=== PATIENT | female | born 1955 | race Caucasian/White ===

== ENCOUNTER 2017-09-30 09:21 | Emergency (ER) | payer MEDICARE ==
--- NOTE | 2017-09-30 09:46 | UC ---
Shortness of Breath HPI - HPI Summary HPI Summary: Patient is to the urgent care this morning with driving complains of left-sided chest pain and shortness of breath began about 3 AM. Patient has noted a 3 pound weight gain over the past week. She has noted increased swelling in her legs and feet - History of Current Complaint Chief Complaint: UCChestPain Stated Complaint: SHORTNESS OF BREATH Time Seen by Provider: 09/30/17 09:28 Hx Obtained From: Patient ?: No Onset/Duration: Sudden Onset, Lasting Hours, Still Present Timing: Constant Current Severity: Moderate Dyspnea At: Rest Aggrevating Factors: Nothing Alleviating Factors: Nothing Associated Signs & Symptoms: Positive: Chest Pain Unrelated to Cough Related History: Obesity - Allergy/Home Medications Allergies/Adverse Reactions: Allergies Allergy/AdvReac Type Severity Reaction Status Date / Time bupropion [From Wellbutrin] Allergy Edema Verified 09/30/17 09:52 lidocaine Allergy Unknown Verified 09/30/17 09:52 Reaction Details Penicillins Allergy Swelling Verified 09/30/17 09:52 Of Face,Lips,& Throat shellfish derived Allergy Edema Verified 09/30/17 09:52 silver sulfadiazine Allergy Edema Verified 09/30/17 09:52 [From Silvadene] Sulfa (Sulfonamide Allergy Unknown Verified 09/30/17 09:52 Antibiotics) Reaction Details Home Medications: Home Medications Albuterol 0.5% CONC NEB.DARBY* [Albuterol 0.5ol*] 1 mg INH DAILY PRN 09/30/17 [ History Confirmed 09/30/17] Alpha Lipoic Acid [Alpha-Lipoic Acid] 200 mg PO QID 09/30/17 [History Confirmed 09/30/17] Clopidogrel TAB* [Plavix TAB*] 75 mg PO DAILY 09/30/17 [History Confirmed ] Nitrofurantoin Macrocrystals* [Macrodantin*] 100 mg PO DAILY PRN 09/30/17 [ History Confirmed 09/30/17] Pantoprazole TAB (NF) [Protonix TAB (NF)] 40 mg PO DAILY 09/30/17 [History Confirmed 09/30/17] Ropinirole TAB* [Requip TAB*] 1 mg PO DAILY 09/30/17 [History Confirmed 09/30/17 ] Spiriva Inhaler DEVICE* [Tiotropium Inhaler DEVICE*] 1 inh INH DAILY 09/30/17 [ History Confirmed 09/30/17] Warfarin TAB(*) [Coumadin TAB(*)] 5 mg PO EVERY OTHER DAY 09/30/17 [History Confirmed 09/30/17] amLODIPine TAB* [Norvasc 5 mg TAB*] 5 mg PO DAILY 09/30/17 [History Confirmed ] busPIRone TAB* [Buspar TAB *] 15 mg PO TID 09/30/17 [History Confirmed 09/30/17] hydrOXYzine HCL TAB* [Atarax 25 MG TAB*] 25 mg PO BEDTIME 09/30/17 [History Confirmed 09/30/17] PMH/Surg Hx/FS Hx/Imm Hx Previously Healthy: No Endocrine History: Diabetes, Dyslipidemia Cardiovascular History: Cardiac Disease GI/ History: Gastroesophageal Reflux - Surgical History Surgical History: Yes Surgery Procedure, Year, and Place: TRIPLE BYPASS, [id number], 3-C- SECTIONS, LEFT CARPAL TUNNEL-1999,. BLADDER SLING-2000, VULVA CANCER-2002, OOPHARECTOMY-2002, RECTAL CA-2009 W/RADIATION, AND CHEMO - Family History Known Family History: Positive: None - Social History Occupation: Disabled Lives: With Family Alcohol Use: None Substance Use Type: None Smoking Status (MU): Never Smoked Tobacco - Immunization History Most Recent Influenza Vaccination: 2012 Most Recent Tetanus Shot: UNKNOWN Most Recent Pneumonia Vaccination: 2013 Review of Systems Constitutional: Negative Skin: Negative Eyes: Negative ENT: Negative Respiratory: Shortness Of Breath Cardiovascular: Palpitations, Chest Pain Gastrointestinal: Negative Genitourinary: Negative Motor: Negative Neurovascular: Negative Musculoskeletal: Negative Neurological: Negative Psychological: Negative Is Patient Immunocompromised?: No All Other Systems Reviewed And Are Negative: Yes Physical Exam Triage Information Reviewed: Yes Appearance: Ill-Appearing, Pain Distress, Obese Vital Signs: Initial Vital Signs Temp 97.3 F 09/30/17 09:29 Pulse 114 09/30/17 09:29 Resp 26 09/30/17 09:29 BP 130/76 09/30/17 09:29 Pulse Ox 99 09/30/17 09:29 Vital Signs Reviewed: Yes Eye Exam: Normal Eyes: Positive: Conjunctiva Clear ENT Exam: Normal ENT: Positive: Normal ENT inspection, Hearing grossly normal, Pharynx normal, TMs normal, Uvula midline. Negative: Nasal congestion, Tonsillar swelling, Tonsillar exudate, Trismus, Muffled voice, Hoarse voice, Sinus tenderness Dental Exam: Normal Neck exam: Normal Neck: Positive: Supple, Nontender, No Lymphadenopathy Respiratory Exam: Other Respiratory: Positive: Respiratory distress, Decreased breath sounds, Accessory muscle use, Wheezing Cardiovascular Exam: Other Cardiovascular: Positive: No Murmur, Pulses Normal - O, Brisk Capillary Refill, Tachycardia Abdominal Exam: Normal Abdomen Description: Positive: Nontender, No Organomegaly Musculoskeletal Exam: Normal Musculoskeletal: Positive: Strength Intact, ROM Intact, No Edema Neurological Exam: Normal Neurological: Positive: Alert, Muscle Tone Normal Psychological Exam: Normal Psychological: Positive: Normal Response To Family Skin Exam: Normal Shortness of Breath Dx - Course Course Of Treatment: O2, IV, transfer to [facility] (patient preference) via EMS - Differential Dx/Diagnosis Provider Diagnoses: Chest pain shortness of breath - Physician Notification/Consults Discussed Patient Care With: Antolin James Time Discussed With Above Provider: 10:00 Instructed by Provider To: Transfer Discharge - Sign-Out/Discharge Documenting (check all that apply): Discharge - Discharge Plan Condition: Guarded Disposition: TRANS HIGHER LV OF CARE FAC Referrals: No Primary Care Phys,NOPCP [Medical Doctor] - - Billing Disposition and Condition Condition: GUARDED Disposition: [facility]
[2017-09-30 09:53] VITALS: BP 167/85
== END 2017-09-30 10:12 | disposition short-term general hospital (02) ==
LOC: UCCORT 09:21
DX: R07.9 Chest pain, unspecified (principal); R06.02 Shortness of breath; Z88.2 Allergy status to sulfonamides; Z88.0 Allergy status to penicillin; Z88.8 Allergy status to other drugs, medicaments and biological substances
CPT/HCPCS: 93005; 99213; G0463

== ENCOUNTER 2017-09-30 10:32 | Observation (INO) | payer MEDICARE ==
[2017-09-30] MEDS ORDERED: Nitroglycerin 2% OINT* 1 GM PAK TOPICAL ONE (10:34)
[2017-09-30 10:55] LABS: Urine Appearance Clear; Urine Blood 1+ (Negative); Urine Color Straw; Urine Ketones Negative (Negative); Urine Protein Negative (Negative); Urine Specific Gravity 1.002 (1.010-1.030); Urine Urobilinogen Negative (Negative)
[2017-09-30 11:00] LABS: ABS Basophils 0.1 10^3/ul (0-0.2); ABS Eosinophils 0.1 10^3/ul (0-0.6); ABS Lymphocytes 2.1 10^3/ul (1.0-4.8); ABS Monocytes 0.5 10^3/ul (0-0.8); ABS Neutrophils 4.8 10^3/ul (1.5-7.7); ABS Nucleated RBC 0 10^3/ul; Eosinophil % 1.9 % (0-6); Hematocrit 46 % (35-47); Hemoglobin 15.7 g/dl (12.0-16.0); Lymphocyte % 27.4 % (25-47); Mean Corpuscular HGB Conc 34 g/dl (31-36); Mean Corpuscular Hemoglobin 30 pg (27-31); Mean Corpuscular Volume 88 fL (80-97); Mean Platelet Volume 6.9 um3 (7.4-10.4); Nucleated Red Blood Cells % 0.1; Platelet Count 186 10^3/ul (150-450); Red Blood Count 5.15 10^6/ul (4.0-5.4); Red Cell Distribution Width 16 % (10.5-15); White Blood Count 7.6 10^3/ul (3.5-10.8)
--- NOTE | 2017-09-30 11:04 | RAD ---
INDICATION: Chest pressure COMPARISON: Most recent comparison chest x-ray is dated April 26, 2013 TECHNIQUE: Single AP portable view of the chest was obtained. FINDINGS: Image quality is compromised due to the relative inferiority of a portable chest x-ray. Postsurgical findings are unchanged from the prior chest x-ray. The heart and mediastinum exhibit normal size and contour. The lungs are grossly clear. There is no evidence of a large pleural effusion. Visualized bones are normal for the patient's age. IMPRESSION: No radiographic evidence for acute cardiopulmonary abnormality on this portable chest x-ray.
[2017-09-30 11:17] LABS: EGFR Non-African American 65.3 (>60)
[2017-09-30] MEDS ORDERED: Morphine INJ* 4 MG/ML 1 ML SYRINGE (NEW SYRINGE VERSION) IV ONE (11:36)
[2017-09-30] MEDS ORDERED: Iodixanol* (CONTRAST) 320 MG/ML 100 ML SDV IV ONE (11:44)
[2017-09-30] MEDS ORDERED: Morphine VIAL* 4 MG/ML VIAL (1 ml vial) IV ONE ×2 (11:50→11:54)
--- NOTE | 2017-09-30 12:32 | RAD ---
STUDY: CT angiography of the chest, abdomen and pelvis. INDICATION: Chest pressure and pain radiating to the back COMPARISON: CT chest abdomen pelvis dated January 20, 2011 TECHNIQUE: Multidetector CT angiography of the chest, abdomen and pelvis were obtained from the lung apices to the ischial tuberosities after the intravenous injection of 100 mL of Visipaque 320. Reformats were created in the coronal and sagittal planes. 3-D vascular imaging was created from the source images and reviewed as well. ANGIOGRAPHIC FINDINGS: There are no focal filling defects of the pulmonary arteries to indicate central or lobar pulmonary embolism. There is scattered atherosclerotic calcification at the arch of the aorta but no pathologic aneurysmal dilatation or dissection of the thoracic aorta. Calcified atherosclerosis becomes more severe at the abdominal aorta but there is no pathologic aneurysmal dilatation or dissection identified. There is coarse atherosclerotic calcification at the origins of the branch vessels of the arch of the aorta but the visualized portions of these arteries appear to fill adequately with contrast. There is atherosclerotic calcification at the origins of the celiac trunk and superior mesenteric artery causing a mild degree of stenosis at the origin of the celiac trunk. Calcified atherosclerosis at the renal artery ostia does not appear to cause any significant stenosis. The inferior mesenteric artery appears to be adequately patent. Coarse calcification in the lower abdominal aorta extends into the bilateral common iliac arteries there is likely high-grade stenosis at the distal left common iliac artery extending into the proximal portion of the left external iliac artery. There is potentially a second foci of high-grade stenosis as the left external iliac artery transition zone into the left common femoral artery. Shortly beyond the bifurcation the coarsely calcified left superficial femoral artery becomes occluded. On the right the right superficial femoral artery also appears to be, occluded shortly after the bifurcation. NON ANGIOGRAPHIC FINDINGS: Chest: The lungs exhibit mild centrilobular emphysematous changes but are otherwise adequately aerated. Top normal mediastinal lymph nodes measuring up to 8 mm in short axis diameter identified. The largest lymph node is a paratracheal lymph node medially anterior to the trachea above the bifurcation measuring 11 mm in short axis diameter (axial image 44 of 243). These lymph nodes have not changed significantly since the January 20, 2011 CT examination. The heart is grossly normal in appearance. Abdomen & Pelvis: The liver is homogenously hypodense relative to the spleen without focal masses, service irregularity or intrahepatic biliary duct dilatation. The liver measures up to 20.4 cm in greatest cephalocaudal dimension not significant change since the 2011 CT examination. The spleen, pancreas and adrenal glands are grossly normal in appearance. The gallbladder is normal. The kidneys are normal in appearance without focal mass, calcification or signs of hydronephrosis. The renal cortices enhance promptly and symmetrically on arterial phase imaging. Evaluation of the gastrointestinal tract is limited without oral contrast. The small and large bowel are not distended. The appendix is not discretely identified but there are no focal inflammatory changes in the right lower quadrant that would be characteristic of acute appendicitis. There is no gross retroperitoneal or mesenteric lymphadenopathy. The pelvic viscera is normal in appearance. Multilevel degenerative changes of the thoracic and lumbar spine include loss of intervertebral disc height.There are no sinister bone lesions. IMPRESSION: 1. No centrilobular pulmonary embolism. 2. Chronic appearing calcified atherosclerosis of the thoracic and abdominal aorta without acute dissection or pathologic aneurysmal dilatation. 3. There is at least high-grade stenosis involving the left common and external iliac arteries and occlusion of the proximal portions of the superficial femoral arteries bilaterally. Please correlate to signs or symptoms of lower extremity arterial deficiency including pulselessness and lower extremity claudication. 4. Mild hepatomegaly with likely hepatic steatosis. 5. Additional chronic and degenerative changes described in the body the report
[2017-09-30] MEDS ORDERED: Oxymorphone IR (NF) 5 MG TAB PO PRN (13:42)
[2017-09-30] MEDS ORDERED: Albuterol 0.5% CONC NEB.SOL* 5 MG/ML 20 ml BOT INH PRN (13:42)
[2017-09-30] MEDS ORDERED: Dextrose 50% Syringe 50 ML* 25 GM/50 ML SYRINGE IV PUSH PRN (13:48)
[2017-09-30] MEDS ORDERED: Spiriva Inhaler DEVICE* 1 EACH DEVICE SCH (14:00)
[2017-09-30] MEDS ORDERED: Morphine VIAL* 4 MG/ML VIAL (1 ml vial) IV PRN (14:48)
[2017-09-30] MEDS ORDERED: Albuterol 2.5 MG/3 ML NEB.SOL* (0.083%) INH PRN ×2 (15:46→18:17)
[2017-09-30] MEDS ORDERED: Albuterol 2.5 MG/3 ML NEB.SOL* (0.083%) ONE (15:54)
[2017-09-30] MEDS: busPIRone TAB* 5 MG PO SCH ×2 (16:38→21:53)
[2017-09-30] MEDS: Acetaminophen TAB* 325 MG PO PRN ×2 (16:38→23:28)
[2017-09-30] MEDS: Insulin LISPRO* 1 UNITS UNIT SUBCUT SCH (16:41)
[2017-09-30] MEDS ORDERED: Nitrofurantoin Macrocrystals* 100 MG CAP PO SCH (17:00)
[2017-09-30] MEDS ORDERED: Albuterol 2.5 MG/3 ML NEB.SOL* (0.083%) INH SCH (17:00)
[2017-09-30] MEDS: Nitrofurantoin Macrocrystals* 50 MG CAP PO SCH ×2 (17:55→21:52)
--- NOTE | 2017-09-30 17:56 | HP ---
CC: Dr. Sidhu * [facility] MEDICINE HISTORY AND PHYSICAL: DATE OF ADMISSION: 09/30/17 PRIMARY CARE PROVIDER: Dr. Sidhu. ATTENDING PHYSICIAN: Dr. Destiny Hope * (dictation provided by Mimi Cornejo NP ). CHIEF COMPLAINT: Chest pain. HISTORY OF PRESENT ILLNESS: Ms. 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 West at [facility]; rectal cancer, status post chemotherapy and radiation, and previously followed by Dr. Banegas; history of DVT, on warfarin therapy; diabetes, who presents to the hospital today with concern for chest pain. Ms. Wilkerson states that she started feeling unwell on Sunday morning. At that time, she had headache, runny nose, and general malaise with a low-grade fever consistent with an upper respiratory tract infection. She continued to feel generally unwell, but just only mildly sick on , Sunday, and Sunday. However, this morning at 3 a.m., she woke suddenly with excruciating chest pain. She describes feeling like "an elephant was sitting on my chest." She feels that her "head was about to pop off." She had pain radiating into her back. She was nauseous, sweaty, and diaphoretic. She stated it was hard to walk. For this, she originally went to [facility], but then was transferred to [facility] via ambulance. At this point, she states she has a very mild headache and no chest pain. In the emergency room, Ms. Wilkerson had labs, which showed troponin of 0.03. The remainder of her labs showed INR 3.0. She had incidentally noted lactic acid of 2.1. Her urine shows 1+ leukocyte esterase. She does have frequent history of UTIs and is currently reporting urinary frequency, but no dysuria. She had a chest x-ray, which showed no acute process and a chest, abdomen, and pelvis CTA, which showed "no centrilobular pulmonary embolism, chronic- appearing calcified atherosclerosis of thoracic and abdominal aorta without acute dissection or pathologic aneurysmal dilatation. There is at least high- grade stenosis involving the left common and external iliac arteries and occlusion of the proximal portions of the superficial femoral arteries bilaterally. Please correlate the signs and symptoms of lower extremity arterial deficiency including pulselessness and lower extremity claudication, mild hepatomegaly with likely hepatic steatosis, additional chronic and degenerative changes as described in the body of report." In terms of the lower extremity femoral artery stenosis etc., I will note that this is consistent with previous study from 01/05/16 when the patient had aorta with runoff CTA and then she was followed by Vascular Surgery in [place]. PAST MEDICAL HISTORY: 1. Coronary artery bypass graft x3 in 2003, followed by [employer] construction supervisor covering for Dr. Alba, who has left the practice in [place]. 2. Chronic pain secondary to shoulder injury, on oxymorphone. 3. 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 4. Rectal cancer, status post chemo and radiation in 2009, followed previously by Dr. Banegas. 5. Hypertension. 6. Hyperlipidemia. 7. Asthma and COPD, followed by Dr. West in [place]. 8. Restless legs syndrome. 9. History of DVT, on warfarin. 10. Type 2 diabetes, [id number], blood glucose running about 200 at home. 11. MADHAV on home CPAP with 2L NC at night. MEDICATIONS: 1. Warfarin 4 mg alternating with 5 mg every other day. 2. Diphenhydramine 25 mg p.o. at bedtime. 3. Meloxicam 7.5 mg p.o. daily. 4. Multivitamin with mineral 1 tab p.o. daily. 5. Cyanocobalamin 1000 mcg p.o. daily. 6. Oxymorphone 5 mg p.o. q.8 hours p.r.n. 7. Cilostazol 100 mg p.o. b.i.d. 8. Zfake-[id number]-lrwz 200 mg p.o. four times a day. 9. Atarax 25 mg p.o. at bedtime. 10. BuSpar 15 mg p.o. t.i.d. 11. Amlodipine 5 mg p.o. daily. 12. Spiriva 1 cap inhaled daily. 13. Simvastatin 5 mg p.o. daily. 14. Ropinirole 1 mg p.o. daily. 15. Pantoprazole 40 mg p.o. daily. 16. Nitrofurantoin 100 mg p.o. as needed for urinary tract infection symptoms. 17. Glipizide with metformin 2.5/250 one tab p.o. daily. 18. Plavix 75 mg p.o. daily. 19. Albuterol via nebulizer 1 inhalation as needed. The patient states she used twice a day at this point. ALLERGIES: BUPROPION, LIDOCAINE, PENICILLIN, SHELLFISH, SILVER SULFADIAZINE, and SULFA. FAMILY HISTORY: The patient reports her mother related to heart attack. Dad is alive, but he has dementia and Parkinson's, is currently on hospice. SOCIAL HISTORY: The patient quit smoking in 2002. She denies alcohol or drug use. She lives with her who is the healthcare proxy. REVIEW OF SYSTEMS: A 14-point review of systems was completed with Ms. Wilkerson and all those not mentioned above were negative. PHYSICAL EXAMINATION GENERAL: Ms. Wilkerson is sitting up on the bed. She is in no acute distress. VITAL SIGNS: Temperature 98.7, pulse rate 83, respiratory rate 14, O2 saturation 93% on room air, and blood pressure 132/61. LUNGS: Clear to auscultation bilaterally with no accessory muscle use and good aeration. HEART: S1 and S2. No murmur, rub, or gallop, and regular. ABDOMEN: Soft and nontender with bowel sounds positive x4. EXTREMITIES: No cyanosis or edema. NEURO: She is alert. She is oriented x3. She moves all extremities equally. There is no facial asymmetry or focal weakness. Extraocular movements are intact. SKIN: Intact. DIAGNOSTIC STUDIES/LAB DATA: WBC 7.6, hemoglobin 15.7, hematocrit 46, and platelet count 186. INR 3.00. Sodium 144, potassium 4.4, chloride 107, serum bicarbonate 28, BUN 10, creatinine 0.88, glucose 118, lactic acid 2.1, magnesium 1.8. Troponin 0.03. BNP 235. Urine shows 1+ leuk esterase, but no bacteria. The chest x-ray and chest, abdomen, and pelvis CTA as read above. Her EKG shows right bundle branch block, heart rate about 110, it is regular, although I am not clearly able to identify P waves. ASSESSMENT AND PLAN: Ms. Wilkerson is a 62-year-old female with a past medical history of coronary artery disease, with coronary artery bypass graft; type 2 diabetes; peripheral vascular disease, who presents today to the hospital with concern for chest pain. Our plans are for observation in the hospital for the followin. Chest pain: The patient has multiple risk factors for coronary artery disease and acute coronary syndrome. Our plan is for repeat troponins x2. She will be monitored on the telemetry unit, she will have EKG with any further chest pain, she will go on for a chemical nuclear medicine stress test tomorrow. If there are any abnormalities there or concerning clinical course, Cardiology will be consulted. 2. Type 2 diabetes: The patient states her blood glucose is uncontrolled at home. Plan to hold her glipizide and metformin and treat with insulin with meals via sliding scale. I have also added on hemoglobin A1c and recommend that her outpatient oral medications be adjusted as needed at the time of discharge. 3. Hypertension: Blood pressure well controlled. Continue amlodipine. The patient is not on beta blockade or lisinopril. She may benefit from this at the time of discharge given her history of coronary artery disease with myocardial infarction. 4. Depression: Continue BuSpar. 5. Chronic obstructive pulmonary disease, asthma: Continue albuterol nebulizer and Spiriva. 6. History of peripheral vascular disease: Continue Pletal, Plavix, Requip for associated restless legs. 7. History of deep venous thrombosis: Continue warfarin. 8. Hyperlipidemia: Continue simvastatin. 9. Chronic pain: Continue Opana. 10. DVT prophylaxis: With warfarin. 11. Code status is DNR. ADDENDUM: Patient reports that her right arm has seemed swollen today. She also has non-blanching petechiae about the hand and wrist. The arm is painless with strong pulses. She did have a CTA chest/abd/pelvis so subclavian artery occlusion was ruled out already. I initially question whether she has a mild injury to the arm during EMS transport to the hospital with petechiae related to being fully anticoagulated on warfarin, but this seems less likely as she has no pain. Plan to add on ESR, CRP, REED to begin to workup vasculitis. TIME SPENT: Approximately 60 minutes was spent on the admission of this patient , more than half time spent with the patient at the bedside reviewing the events leading up to this hospitalization, performing the physical examination, and reviewing the plan of care. MIMI JAMES, ICT HELP DESK OFFICER [id number]/[facility] #: [id number] NALLELY
[2017-09-30] MEDS ORDERED: hydrOXYzine HCL TAB* 25 MG PO SCH (21:00)
[2017-09-30] MEDS ORDERED: diPHENhydraMINE PO* 25 MG PO SCH (21:00)
[2017-09-30] MEDS: Cilostazol TAB* 100 MG PO SCH (21:52)
[2017-10-01] MEDS: Insulin LISPRO* 1 UNITS UNIT SUBCUT SCH ×2 (07:29→13:03)
[2017-10-01] MEDS ORDERED: Cyanocobalamin TAB* 500 MCG PO SCH (09:00)
[2017-10-01] MEDS ORDERED: Tiotropium CAP.INH* CAP.INH/18 MCG (USE ORDER SET !) INH SCH (09:00)
[2017-10-01] MEDS ORDERED: Clopidogrel TAB* 75 MG PO SCH (09:00)
[2017-10-01] MEDS ORDERED: Spiriva Inhaler DEVICE* 1 EACH DEVICE INH ONE (09:00)
[2017-10-01] MEDS ORDERED: Warfarin TAB(*) 4 MG PO SCH (09:00)
[2017-10-01] MEDS ORDERED: Multivitamins/Minerals TAB PO SCH (09:00)
[2017-10-01] MEDS ORDERED: CMC Pantoprazole TAB (NF) 40 MG TAB PO SCH (09:00)
[2017-10-01] MEDS ORDERED: amLODIPine TAB* 5 MG PO SCH (09:00)
[2017-10-01] MEDS ORDERED: Ropinirole TAB* 0.5 MG TAB PO SCH (09:00)
[2017-10-01] MEDS ORDERED: CMCS Simvastatin TAB(NF) 10 MG TAB PO SCH (09:00)
[2017-10-01] MEDS: busPIRone TAB* 5 MG PO SCH ×2 (09:10→14:11)
[2017-10-01] MEDS: Nitrofurantoin Macrocrystals* 50 MG CAP PO SCH ×2 (09:11→14:11)
[2017-10-01] MEDS: Cilostazol TAB* 100 MG PO SCH (09:11)
[2017-10-01 09:52] LABS: INR 2.9 (0.77-1.02)
[2017-10-01] MEDS ORDERED: Regadenoson* 0.4 MG/5 ML SYRINGE ONE (12:46)
--- NOTE | 2017-10-01 13:14 | RAD ---
HISTORY: Chest pain, Conus of breath, hyperlipidemia, hypertension, previous [place], cardiac catheterization, diabetes, COMPARISONS: None TECHNIQUE: A 1 day stress/rest myocardial perfusion study was performed, with pharmacologic stress. The stress portion was monitored by Dr. Mathews. Gated SPECT imaging was performed, with CT-based attenuation correction DOSE: Stress: Technetium 99m tetrofosmin, 25.7 millicuries, injected at 12:04 PM on October 01, 2017 Rest: Technetium 99m tetrofosmin, 10.51 millicuries, injected at 9:48 AM on October 01, 2017 Pharmacologic agent: Lexiscan FINDINGS: CARDIAC MONITORING: Nondiagnostic EKG study due to resting EKG abnormalities. EF: 36% TID: 1.2 MOTION: There is diffuse hypokinesia PERFUSION: There is a small fixed apical defect. There is a moderate to large fixed defect of the anterior wall and septum, with marginal reversibility. OTHER: None IMPRESSION: 1. DECREASED EJECTION FRACTION. 2. THERE IS A FIXED DEFECT OF THE ANTERIOR WALL AND SEPTUM CONSISTENT WITH PREVIOUS INFARCT. THERE IS MARGINAL REVERSIBILITY WHICH MAY REFLECT MARGINAL ISCHEMIA. THERE IS ALSO SMALL FIXED DEFECT OF THE APEX. ASSESSMENT: INTERMEDIATE RISK. Based on imaging criteria from ACC/AHA 2002. Guideline Update for the Management of Patient's with Chronic Stable Angina, table 23. Noninvasive Risk Stratification. CPT II Codes: 0581B1Y
[2017-10-01 15:27] VITALS: BP 113/57
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
[2017-10-02] MEDS ORDERED: Warfarin TAB(*) 5 MG PO SCH (09:00)
--- NOTE | 2017-10-11 14:21 | ED ---
Inessa López Emily, scribed for William Levi MD on 09/30/17 at 1055 . HPI Chest Pain - HPI Summary HPI Summary: This patient is a 62 year old F BIBA to [facility], referred by urgent care, accompanied by with a chief complaint of chest pressure that woke the pt up at 0300 this morning. The patient rates the pain 3/10 in severity. Pt reports the pain being a 9/10 at its worst. Symptoms aggravated by nothing. Symptoms alleviated by nothing. Patient reports weakness in the legs, dizziness , sore throat, back pain (began 3 days ago), SOB (resolved), nausea, recent weight gain (3 lbs), and increased urinary frequency. Patient denies cough, arm pain, and jaw pain. Pt reports having a triple bypass surgery for a OH in 2003. - History of Current Complaint Chief Complaint: EDChestPainROMI Hx Obtained From: Patient Onset/Duration: Started Hours Ago, Still Present Time of Onset: 03:00 Timing: Constant Initial Severity: Moderate Current Severity: Moderate Pain Intensity: 3 - At its worst 9/10 Pain Scale Used: 0-10 Numeric Chest Pain Location: Diffuse Chest Pain Radiates: No Character: Pressure/Squeezing - Allergy/Home Medications Allergies/Adverse Reactions: Allergies Allergy/AdvReac Type Severity Reaction Status Date / Time bupropion [From Wellbutrin] Allergy Edema Verified 09/30/17 09:52 lidocaine Allergy Unknown Verified 09/30/17 09:52 Reaction Details Penicillins Allergy Swelling Verified 09/30/17 09:52 Of Face,Lips,& Throat shellfish derived Allergy Edema Verified 09/30/17 09:52 silver sulfadiazine Allergy Edema Verified 09/30/17 09:52 [From Silvadene] Sulfa (Sulfonamide Allergy Unknown Verified 09/30/17 09:52 Antibiotics) Reaction Details Home Medications: Home Medications Cilostazol TAB* [Pletal TAB*] 100 mg PO BID 09/30/17 [History Confirmed 09/30/17 ] Cyanocobalamin TAB* [Vitamin B12 TAB*] 1,000 mcg PO DAILY 09/30/17 [History Confirmed 09/30/17] Glipizide/Metformin HCl [Glipizide/Metformin HCl 2.5-250 mg] 1 tab PO DAILY [History Confirmed 09/30/17] Meloxicam(NF) [Mobic(NF)] 7.5 mg PO DAILY 09/30/17 [History Confirmed 09/30/17] Multivitamins/Minerals TAB* [Theragran/minerals TAB*] 1 tab PO DAILY 09/30/17 [ History Confirmed 09/30/17] Oxymorphone (NF) [Opana (NF)] 5 mg PO Q8H PRN 09/30/17 [History Confirmed ] Simvastatin TAB(NF) [Zocor(NF)] 5 mg PO DAILY 09/30/17 [History Confirmed ] Warfarin TAB(*) [Coumadin TAB(*)] 4 mg PO EVERY OTHER DAY 09/30/17 [History Confirmed 09/30/17] diPHENhydraMINE PO* [Benadryl PO 25 MG TAB*] 25 mg PO BEDTIME 09/30/17 [History Confirmed 09/30/17] PMH/Surg Hx/FS Hx/Imm Hx Previously Healthy: No Endocrine/Hematology History: Reports: Hx Diabetes Cardiovascular History: Reports: Hx Hypertension - CONTROLLED W/MEDS Comment Only: Hx Congestive Heart Failure - OH + TRIPLE [id number], Other Cardiovascular Problems/Disorders - TRIPLE BYPASS 2003 Respiratory History: Reports: Hx Asthma, Hx Chronic Obstructive Pulmonary Disease (COPD), Hx Sleep Apnea - CPAP AT NIGHT History: Denies: Hx Renal Disease Musculoskeletal History: Reports: Other Musculoskeletal History - left shoulder injury Sensory History: Reports: Hx Contacts or Glasses Opthamlomology History: Reports: Hx Contacts or Glasses Psychiatric History: Reports: Hx Anxiety - Cancer History Cancer Type, Location and Year: VULVA -2002, RECTAL CA-2009 Hx Chemotherapy: Yes - RECTAL CA Hx Radiation Therapy: Yes - RECTAL CANCER, 2010 - Surgical History Surgery Procedure, Year, and Place: TRIPLE BYPASS, [id number], 3-C- SECTIONS, LEFT CARPAL TUNNEL-1999,. BLADDER SLING-2000, VULVA CANCER-2002, OOPHARECTOMY-2002, RECTAL CA-2009 W/RADIATION, AND CHEMO Infectious Disease History: No Infectious Disease History: Denies: Traveled Outside the [place] in Last 30 Days - Family History Known Family History: Positive: Other - Positive asthma. Negative angioedema and aneurysm - Social History Occupation: Disabled Lives: With Family Alcohol Use: None Substance Use Type: Reports: None Smoking Status (MU): Never Smoked Tobacco Review of Systems Negative: Fever, Chills Negative: Erythema Positive: Sore Throat Positive: Chest Pain Positive: Shortness Of Breath. Negative: Cough Positive: Nausea, Other - Positive recent weight gain. Negative: Abdominal Pain , Vomiting Positive: frequency. Negative: dysuria, hematuria Positive: Other - Positive back pain. Negative arm pain and jaw pain. Negative : Myalgia, Edema Negative: Rash Neurological: Other - Positive dizziness Positive: Weakness All Other Systems Reviewed And Are Negative: Yes Physical Exam - Summary Physical Exam Summary: Constitutional: Well-developed, Well-nourished, Alert. (-) Distressed Skin: Warm, Dry HENT: Normocephalic; Atraumatic Eyes: Conjunctiva normal Neck: Musculoskeletal ROM normal neck. (-) JVD, (-) Stridor, (-) Tracheal deviation Cardio: Rhythm regular, rate normal, Heart sounds normal; Intact distal pulses; The pedal pulses are 2+ and symmetric. Radial pulses are 2+ and symmetric. (-) Murmur. No reproducible CP Pulmonary/Chest wall: Effort normal. (-) Respiratory distress, (-) Wheezes, (-) Rales, Diminished breath sounds Abd: Soft, (-) Tenderness, (-) Distension, (-) Guarding, (-) Rebound Musculoskeletal: (-) Edema Lymph: (-) Cervical adenopathy Neuro: Alert, Oriented x3 Psych: Mood and affect Normal Triage Information Reviewed: Yes Vital Signs On Initial Exam: Initial Vitals Temp Pulse Resp BP Pulse Ox 98.7 F 117 24 140/88 90 09/30/17 10:40 09/30/17 10:40 09/30/17 10:40 09/30/17 10:40 09/30/17 10:40 Vital Signs Reviewed: Yes Diagnostics - Vital Signs Vital Signs Temp Pulse Resp BP Pulse Ox 09/30/17 10:40 98.7 F 117 24 140/88 90 - Laboratory Result Diagrams: 09/30/17 10:50 09/30/17 10:50 Lab Statement: Any lab studies that have been ordered have been reviewed, and results considered in the medical decision making process. - Radiology CXR Radiology Interpretation Completed By: Radiologist - CXR reveals, per radiologist, no radiographic evidence for acute cardiopulmonary abnormality on this portable chest x-ray. ED physician has reviewed this radiology report. - CT Chest CT CT Interpretation Completed By: Radiologist - Chest CT reveals, per radiologist , 1. No centrilobular pulmonary embolism. 2. Chronic appearing calcified atherosclerosis of the thoracic and abdominal aorta without acute dissection or pathologic aneurysmal dilatation. 3. There is at least high-grade stenosis involving the left common and external iliac arteries and occlusion of the proximal portions of the superficial femoral arteries bilaterally. Please correlate to signs or symptoms of lower extremity arterial deficiency including pulselessness and lower extremity claudication. 4. Mild hepatomegaly with likely hepatic steatosis. 5. Additional chronic and degenerative changes described in the body the report. ED physician has reviewed this radiology report. - EKG 1044 Cardiac Rate: Tachycardia EKG Rhythm: Sinus Rhythm - 110 BPM EKG Interpretation: PVCs and no STEMI Re-Evaluation - Re-Evaluation First Eval Re-Evaluation Time: 11:20 Change: Improved Comment: Pt reports CP feeling slightly improved Second Eval Re-Evaluation Time: 12:35 Change: Unchanged Comment: Discussed results and plan of care with pt. Her pedal pulses are weakly palpable on dorsalis pedis Chest Pain Course/Dx - Course Course Of Treatment: Telemetry shows sinus rhythm with occasional PVCs. CP much improved with nitrates and morphine. No significant EKG changes. Admit for repeat troponins, probably stress test and/or cardiac consult. - Diagnoses Provider Diagnoses: Chest pain, unspecified - Provider Notifications Discussed Care Of Patient With: Destiny Hope Time Discussed With Above Provider: 12:13 Instructed by Provider To: Other - Consult with Dr. Hope (hospitalist) at 1213. She agrees to admit pt for further evaluation. - Critical Care Time Critical Care Time: 30-74 min - 35 Minutes Discharge - Sign-Out/Discharge Documenting (check all that apply): Discharge - Admit to [facility] - Discharge Plan Condition: Stable Disposition: ADMITTED TO [facility] Referrals: Kim Sidhu MD [Primary Care Provider] - The documentation as recorded by the Inessa morales Emily accurately reflects the service I personally performed and the decisions made by me, William Levi MD.
== END 2017-10-01 15:50 | disposition home or self-care (01) ==
LOC: ED 10:32 → MEDTELE 13:15
PROVIDERS: ADMIT Internal Medicine; ATTEND Internal Medicine
DX: R07.9 Chest pain, unspecified (principal); I25.10 Atherosclerotic heart disease of native coronary artery without angina pectoris; I10 Essential (primary) hypertension; E78.5 Hyperlipidemia, unspecified; J44.9 Chronic obstructive pulmonary disease, unspecified; G25.81 Restless legs syndrome; Z86.718 Personal history of other venous thrombosis and embolism; Z79.01 Long term (current) use of anticoagulants; E11.9 Type 2 diabetes mellitus without complications; G47.33 Obstructive sleep apnea (adult) (pediatric); G89.29 Other chronic pain; Z79.899 Other long term (current) drug therapy; Z88.8 Allergy status to other drugs, medicaments and biological substances; Z95.1 Presence of aortocoronary bypass graft; Z87.891 Personal history of nicotine dependence; I45.2 Bifascicular block; I49.3 Ventricular premature depolarization; R06.02 Shortness of breath; Z88.2 Allergy status to sulfonamides; Z88.0 Allergy status to penicillin
CPT/HCPCS: 36415; 71045; 71275; 74174; 78452; 80053; 81003; 81015; 82550; 82553; 83036; 83605; 83735; 83874; 83880; 84484; 85025; 85610; 85652; 85730; 86038; 86140; 86255; 87086; 93005; 93017; 94640; 94660; 94760; 96374; 96376; 99291; A9270-GY; A9502; G0378; J2270; J2785; Q9967

== ENCOUNTER 2018-06-13 13:31 | Inpatient (IN) | payer MEDICARE ==
--- NOTE | 2018-06-13 14:09 | ED ---
HPI Chest Pain - HPI Summary HPI Summary: A 63 y/o female presents to [facility] with a chief complaint of left sided chest pain since 06/12/18, worsening on 06/13/18. The patient describes her pain as a pressure. She also reports nausea, low heart rate and SOB. She rates her pain as 6/10. She has Zoll life vest with an external defibrillator. She has had 2 cardiac stents in November. 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 She has a Hx of triple bypass. She took NTG the morning of 06/13/18. Has a Hx of blood clots next to her heart. She takes coumadin. Last time she had her blood levels tested was . She denies a Hx of CHF, but admits to a Hx of DC. She has been admitted to the ED before for Chemotherapy for rectal cancer in 2009. 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 - History of Current Complaint Chief Complaint: EDChestPainROMI Time Seen by Provider: 06/13/18 13:52 Hx Obtained From: Patient Onset/Duration: Started Hours Ago, Still Present Timing: Constant, Lasting Hours Initial Severity: Moderate Current Severity: Moderate Pain Intensity: 6 Pain Scale Used: 0-10 Numeric Chest Pain Location: Diffuse Chest Pain Radiates: No Character: Pressure/Squeezing Aggravating Factor(s): Nothing Alleviating Factor(s): Medication Associated Signs and Symptoms: Positive: Shortness of Breath, Nausea, Other: - feeling bradycardic - Allergy/Home Medications Allergies/Adverse Reactions: Allergies Allergy/AdvReac Type Severity Reaction Status Date / Time bupropion [From Wellbutrin] Allergy Edema Verified 09/30/17 09:52 lidocaine Allergy Unknown Verified 09/30/17 09:52 Reaction Details Penicillins Allergy Swelling Verified 09/30/17 09:52 Of Face,Lips,& Throat shellfish derived Allergy Edema Verified 09/30/17 09:52 silver sulfadiazine Allergy Edema Verified 09/30/17 09:52 [From Silvadene] Sulfa (Sulfonamide Allergy Unknown Verified 09/30/17 09:52 Antibiotics) Reaction Details PMH/Surg Hx/FS Hx/Imm Hx Endocrine/Hematology History: Reports: Hx Diabetes Cardiovascular History: Reports: Hx Angina, Hx Coronary Artery Disease, Hx Deep Vein Thrombosis, Hx Hypercholesterolemia, Hx Hypertension - CONTROLLED W/MEDS, Hx Myocardial Infarction Comment Only: Hx Congestive Heart Failure - DC + TRIPLE [id number], Other Cardiovascular Problems/Disorders - TRIPLE BYPASS 2003 Respiratory History: Reports: Hx Asthma, Hx Chronic Obstructive Pulmonary Disease (COPD), Hx Sleep Apnea - CPAP AT NIGHT History: Denies: Hx Renal Disease Musculoskeletal History: Reports: Other Musculoskeletal History - left shoulder injury Sensory History: Reports: Hx Contacts or Glasses Denies: Hx Hearing Aid Opthamlomology History: Reports: Hx Contacts or Glasses Neurological History: Denies: Hx Migraine, Hx Seizures, Hx Transient Ischemic Attacks (TIA) Psychiatric History: Reports: Hx Anxiety - Cancer History Cancer Type, Location and Year: VULVA -2002, RECTAL CA-2009 Hx Chemotherapy: Yes - RECTAL CA Hx Radiation Therapy: Yes - RECTAL CANCER, 2010 - Surgical History Surgery Procedure, Year, and Place: TRIPLE BYPASS, [id number], 3-C- SECTIONS, LEFT CARPAL TUNNEL-1999,. BLADDER SLING-2000, VULVA CANCER-2002, OOPHARECTOMY-2002, RECTAL CA-2009 W/RADIATION, AND CHEMO Infectious Disease History: No Infectious Disease History: Denies: Traveled Outside the [place] in Last 30 Days - Family History Known Family History: Positive: Other - Positive asthma. Negative angioedema and aneurysm - Social History Alcohol Use: None Substance Use Type: Reports: None Smoking Status (MU): Never Smoked Tobacco Review of Systems Negative: Fever Positive: Chest Pain, Other - positive: feeling bradycardic Positive: Shortness Of Breath Positive: Nausea All Other Systems Reviewed And Are Negative: Yes Physical Exam - Summary Physical Exam Summary: GENERAL: Patient is a well-developed and nourished F who is lying comfortable in the stretcher. Patient is not in any acute respiratory distress. HEAD AND FACE: Normocephalic EYES: PERRLA, EOMI x 2. EARS: Hearing grossly intact. MOUTH: Oropharynx within normal limits. NECK: Supple, trachea is midline, no adenopathy, no JVD, no carotid bruit. CHEST: Symmetric, mild TTP diffusely. LUNGS: Clear to auscultation bilaterally. No wheezing or crackles. CVS: Regular rate and rhythm, S1 and S2 present, no murmurs or gallops appreciated. ABDOMEN: Soft, non-tender. Bowel sounds are normal. No abdominal abnormal pulsations. EXTREMITIES: Full ROM in all major joints, no edema no cyanosis or clubbing. NEURO: Alert and oriented x 3. No acute neurological deficits. Speech is normal and follows commands. SKIN: Dry and warm Triage Information Reviewed: Yes Vital Signs On Initial Exam: Initial Vitals Temp Pulse Resp BP Pulse Ox 97.8 F 81 16 130/58 96 06/13/18 13:36 06/13/18 13:36 06/13/18 13:36 06/13/18 13:36 06/13/18 13:36 Vital Signs Reviewed: Yes Diagnostics - Vital Signs Vital Signs Temp Pulse Resp BP Pulse Ox 06/13/18 13:36 97.8 F 81 16 130/58 96 - Laboratory Result Diagrams: 06/14/18 09:18 06/14/18 09:18 Lab Statement: Any lab studies that have been ordered have been reviewed, and results considered in the medical decision making process. - Radiology CXR Radiology Interpretation Completed By: Radiologist Summary of Radiographic Findings: Stigmata of obstructive lung disease. No acute cardiomegaly. No acute pulmonary or cardiac process evident. ED physician has reviewed this imaging report. - EKG 13:53 Cardiac Rate: NL - 85 bpm EKG Rhythm: Sinus Rhythm - NSR at 85 bpm with PVCs and RBBB. Similar to previous EKG done . Summary of EKG Findings: NSR at 85 bpm with PVCs and RBBB. Similar to previous EKG done . Chest Pain Course/Dx - Course Course Of Treatment: A 63 y/o female presents to [facility] with a chief complaint of left sided chest pain since 06/12/18, worsening on 06/13/18. Workup is remarkable with the physical exam revealing mild TTP diffusely in chest. EKG showed NSR at 85 bpm with PVCs and RBBB. Similar to previous EKG done . CXR impression: Stigmata of obstructive lung disease. No acute cardiomegaly. No acute pulmonary or cardiac process evident. Lab results obtained. INR high at 2.58, APTT high 39.3 Troponin at 0.03. In the ED course the patient was given aspirin PO and NTG. Dx: chest pain.The patient will be admitted. Case discussed with Dr. Palma, hospitalist. I discussed results with patient. The patient agrees with this plan. - Diagnoses Provider Diagnoses: Chest pain - Provider Notifications Discussed Care Of Patient With: Royce Roman Time Discussed With Above Provider: 14:40 Instructed by Provider To: Other - Discussed case with patient and is agreeable with plan for admission. Discharge - Sign-Out/Discharge Documenting (check all that apply): Patient Departure - Admit - Discharge Plan Condition: Guarded Disposition: ADMITTED TO [facility] - Billing Disposition and Condition Condition: GUARDED Disposition: Admitted to [facility] - Attestation Statements Document Initiated by Scribe: Yes Documenting Scribe: Ruben Shaikh Provider For Whom Avi is Documenting (Include Credential): Ellis Garvey MD Scribe Attestation: IRuben, scribed for Ellis Garvey MD on 06/16/18 at 1050. Scribe Documentation Reviewed: Yes Provider Attestation: The documentation as recorded by the [email or web address] cosme accurately reflects the service I personally performed and the decisions made by me, Maggy Garvey MD Status of Scribe Document: Viewed Consult Consult: At 15:30- Dr. Palma, hospitalist, accepted the patient for admission.
[2018-06-13 14:23] LABS: ABS Basophils 0 10^3/ul (0-0.2); ABS Eosinophils 0.2 10^3/ul (0-0.6); ABS Lymphocytes 2.1 10^3/ul (1.0-4.8); ABS Monocytes 0.6 10^3/ul (0-0.8); ABS Neutrophils 4.9 10^3/ul (1.5-7.7); ABS Nucleated RBC 0 10^3/ul; Eosinophil % 2.3 %; Hematocrit 42 % (35-47); Hemoglobin 14.6 g/dl (12.0-16.0); Lymphocyte % 26.6 %; Mean Corpuscular HGB Conc 35 g/dl (31-36); Mean Corpuscular Hemoglobin 31 pg (27-31); Mean Corpuscular Volume 88 fL (80-97); Mean Platelet Volume 7.5 fL (7.4-10.4); Nucleated Red Blood Cells % 0.1; Platelet Count 183 10^3/ul (150-450); Red Blood Count 4.77 10^6/ul (4.00-5.40); Red Cell Distribution Width 16 % (10.5-15); White Blood Count 7.7 10^3/ul (3.5-10.8)
[2018-06-13] MEDS ORDERED: Nitroglycerin TAB 0.4 MG* 0.4 MG TAB SL ONE (14:24)
[2018-06-13] MEDS ORDERED: Aspirin 81 mg CHEW TAB* 81 MG TAB.CHEW PO ONE (14:25)
[2018-06-13 14:29] LABS: Activated Partial Thrombo Time 39.3 seconds (26.0-36.3); INR 2.58 (0.77-1.02)
[2018-06-13 14:48] LABS: Albumin 4.9 g/dL (3.2-5.2); Albumin/Globulin Ratio 1.9 (1-3); BUN/Creatinine Ratio 15.1 (8-20); Calcium 9.8 mg/dL (8.6-10.3); EGFR Non-African American 61.1 (>60); Globulin 2.6 g/dL (2-4); Potassium 3.7 mmol/L (3.5-5.0); Total Bilirubin 0.9 mg/dL (0.2-1.0); Total Protein 7.5 g/dL (6.4-8.9)
[2018-06-13 14:51] LABS: HCG Pregnancy 4.88 mIU/mL
[2018-06-13 15:10] LABS: Urine Appearance Clear; Urine Bacteria Absent (Absent); Urine Bilirubin Negative (Negative); Urine Blood Negative (Negative); Urine Color Straw; Urine Glucose Negative (Negative); Urine Ketones Negative (Negative); Urine Nitrite Negative (Negative); Urine Protein Negative (Negative); Urine Red Blood Cell Absent (Absent); Urine Specific Gravity 1.003 (1.010-1.030); Urine Urobilinogen Negative (Negative); Urine White Blood Cell Trace(0-5/hpf) (Absent)
[2018-06-13] MEDS ORDERED: Acetaminophen TAB* 325 MG PO PRN (15:48)
[2018-06-13] MEDS ORDERED: Iodixanol* (CONTRAST) 320 MG/ML 100 ML SDV IV ONE (15:58)
[2018-06-13] MEDS: KCL 20 MEQ/100 ML IVPREMIX* 20 MEQ/100 ML BAG IV SCH ×2 (16:33→22:36)
[2018-06-13] MEDS ORDERED: Oxymorphone IR (NF) 5 MG TAB PO PRN (16:40)
[2018-06-13] MEDS ORDERED: Albuterol 2.5 MG/3 ML NEB.SOL* (0.083%) INH PRN (16:40)
[2018-06-13] MEDS ORDERED: Dextrose 50% Syringe 50 ML* 25 GM/50 ML SYRINGE IV PUSH PRN (16:48)
[2018-06-13 17:06] LABS: Magnesium 1.8 mg/dL (1.9-2.7)
[2018-06-13] MEDS ORDERED: Magnesium Sulfate 2 GM IV* 2 GM/50 ML BAG IVPB ONE (17:56)
--- NOTE | 2018-06-13 18:53 | CONS ---
CC: Dr. Kim Sidhu CARDIOLOGY CONSULTATION: DATE OF CONSULT: 06/13/18 REFERRING PHYSICIAN: Dr. Ellis Garvey and Ms. Mimi Cornejo NP. REASON FOR CARDIOLOGY CONSULTATION: Patient with known coronary artery disease being admitted with chest pain and LifeVest alarming. HISTORY OF PRESENT ILLNESS: Ms. Wilkerson is a 63-year-old woman with a history of known coronary artery disease with CABG in the past as well as more recently PCI, as well as mcfjnkky-ap-emgbnl mitral regurgitation and left atrial appendage clot. She had been feeling pretty well and the plan as an outpatient had been for her to have a repeat transesophageal echocardiogram with myself, , to reassess her left atrial appendage clot after 3 months of continuous oral anticoagulation with Coumadin and then potentially refer back for MitraClip as long as the thrombus had resolved. The patient states she had been feeling fairly well until yesterday at 3 p.m. when she began having chest pain. She also noted her LifeVest which she has been wearing given her cardiomyopathy with EF of 30% to 35% began alarming yesterday. Review with the LifeVest strips did show some runs of VT. There was some nitrate responsiveness to her chest pain and the patient became concerned, so came to the emergency room. She did note that the chest pain seemed to go to her left arm, but she has also been having back pain as well as headaches. Currently, the patient notes minor chest discomfort and is quite tired because she did not sleep well last night. PAST CARDIAC HISTORY: Includes coronary artery disease with coronary artery bypass grafting in the past. She had seen her structural tripe finisher, Dr. Hall, at [facility] in [place], [place], last on 03/28/18. On that day, her cardiac cath revealed that her LAD and left circumflex stents which had been recently placed were widely patent, RCA felt completely normal, VELA graft to the left PDA had an ostial lesion felt unchanged from prior and was just felt to be essentially atretic with reasonable flow into the PDA, which is a small size vessel. She was found to have secondary moderate-to- severe mitral regurgitation for possible MitraClip procedure that day; however, transesophageal echocardiogram done there showed a left atrial appendage clot, which was felt to be an absolute contraindication in the MitraClip procedure. They recommended continued anticoagulation with Coumadin for another 3 months and repeat transesophageal echocardiogram to see if the clot had resolved, at which time she would likely be a candidate for the MitraClip procedure and that transesophageal echocardiogram had been scheduled with myself 07/30/18. Alternatively, she would be referred for cardiac surgical evaluation for possible mitral valve repair or mitral valve replacement if the clot had not resolved. She is also wearing a LifeVest because of this cardiomyopathy, and we are planning to reassess her LV function at her transesophageal echocardiogram. PAST MEDICAL HISTORY: Other past medical history includes allergies, acute sinusitis, depression, costochondritis, right arm cellulitis, seizure disorder, cervical cancer, diabetes type 2, lower extremity edema, hypertension, URI, sleep apnea and she is on CPAP, DVT in July of 2016 on chronic Coumadin, paroxysmal atrial fibrillation reported, restless legs syndrome, hyperlipidemia , tachycardia. PAST SURGICAL HISTORY: Includes section; left carpal tunnel release; bladder surgery; rectal carcinoma with radiation and chemotherapy treatment in 2009; oophorectomy, bladder sling. OUTPATIENT MEDICATIONS: Include: 1. Lisinopril 2.5 mg once a day. 2. BuSpar 15 mg p.o. t.i.d. 3. Hydroxyzine 25 mg p.o. q.h.s. 4. Albuterol p.r.n. 5. Nitroglycerin sublingual p.r.n. 6. Glipizide/metformin 5/500 one tablet once a day. 7. Plavix 75 mg once a day, which she will be completing dual antiplatelet therapy for drug-eluting placement, which was last completed, 12/03/17, i.e., until 07/07/20. 8. Zofran 4 mg p.o. t.i.d. p.r.n. 9. Zocor 5 mg once a day. 10. Ropinirole 1 tablet by mouth q.h.s. 11. Pantoprazole 40 mg once a day. 12. Coumadin as directed for INR 2 to 3. 13. Multivitamin. 14. Coreg 6.25 mg p.o. b.i.d. 15. Aspirin 81 mg once a day. 16. Lasix 40 mg once a day. 17. Allopurinol 100 mg once a day. ALLERGIES TO MEDICATIONS: Listed as PENICILLIN, WELLBUTRIN, SILVADENE, LIDOCAINE, BUPROPION, SULFA ANTIBIOTICS, TOMATOES, GRAPES. FAMILY HISTORY/SOCIAL HISTORY/REVIEW OF SYSTEMS: Unable to obtain as the patient notes that she is quite tired in the emergency room today. ROS appeared noncontributory other than as above. PHYSICAL EXAM: Height 5 feet 3 inches, blood pressure 136/87, pulse 72, respiratory rate 18. On general exam, she is a pleasant lady who appears tired , in no acute distress. HEENT shows the cranium is normocephalic and atraumatic. She has dry mucosal membranes. Neck veins are not distended. There are no carotid bruits. Visible skin warm and perfused. Affect appropriate. She appears oriented. No significant kyphoscoliosis on back exam. Lungs are clear to auscultation. No wheezes, no rales. Cardiac Exam: S1, S2. Regular rate; 2 to 3/6 holosystolic murmur heard with some radiation towards the left axilla. No rub, no gallop. PMI is nondisplaced. Abdomen: Soft and nondistended, appears benign. Extremities with trivial peripheral edema. Pulses are difficult to palpate, but appeared grossly intact. DIAGNOSTIC STUDIES/LAB DATA: ZOLL monitor tracings reviewed, which did show some evidence of ventricular tachycardia. Labs pending. EKG reviewed, which shows sinus rhythm at 85 beats per minute with several PVCs , right bundle branch block. The patient completed a transthoracic echocardiogram, 02/27/18, which showed mild- to-moderately dilated left ventricular size with wzngdkuy-tr-wdssltmx depressed left ventricular ejection fraction of 30% to 35%, gqvs-uc-phjwhbbj left atrial dilatation, rhtwfued-ky-xxgleb mitral regurgitation. When compared to prior echocardiogram completed elsewhere, 12/03/17, there appeared to be little change. The patient did have a transthoracic echocardiogram at her primary care physician's office, 07/20/16, which did report mild mitral regurgitation with normal ejection fraction of 67%, not estimated at that time. The patient had a cardiac chemical nuclear stress test completed, 02/25/18, which was abnormal and felt to be high risk study. This showed a small site of apical infarction with moderate sized area of anteroseptal infarction. There was moderate amount of proximal mid superimposed anterior wall ischemia as well as proximal lateral wall ischemia with severely reduced left ventricular function. This appeared similar to cardiac chemical nuclear stress test completed at [facility] on 10/01/17. The patient after being admitted to [facility] on with shortness of breath and acute coronary syndrome after having had a renal calculus stent placement earlier in November of 2017, she was transferred to [facility] with non-Q wave MD. At that time, she had cardiac catheterization, 12/03/17, at [facility] with Dr. Hall, which showed left main short, anatomically normal with 30% diffuse plaque; LAD with a smooth 80% to 90% proximal lesion; left circumflex felt likely codominant with proximal 80% lesion and distal portion of the circumflex leading to left PDA appeared to be occluded, but was bypassed; RCA dominant with no significant disease; VELA was felt most likely touching down at the LAD and left PDA; appeared to be a very tiny graft with an ostial possibly 60% lesion with the graft most likely inserting into the LAD; however, the distal anastomosis was occluded and continued to the left PDA; ejection fraction 35%. At that time, i.e., on 12/03/17, the patient had successful drug-eluting stent, PCI to the proximal LAD and circumflex lesions. The patient had repeat cardiac catheterization, 03/28/18, which showed that the LAD and left circumflex stents were widely patent, RCA felt completely normal, VELA graft to the left PDA had an ostial lesion felt unchanged from prior and was felt to be essentially atretic with reasonable flow into the PDA, which was a small size vessel. There was, however, secondary esovucbf-kp-clkzqb mitral regurgitation for possible MitraClip procedure; however, transesophageal echocardiogram done there at that time showed a left atrial appendage clot, felt to be absolute contraindication in the MitraClip procedure. IMPRESSION: Ms. Wilkerson is a pleasant 63-year-old complex lady with a history of CABG in the past, who had acute coronary syndrome with congestive heart failure in November of 2017 after renal calculus stent. She was found to have 2- vessel coronary artery disease, status post left anterior descending artery and left circumflex drug-eluting stent percutaneous coronary intervention, . She also has hsvojqja-vq-poleik ischemic cardiomyopathy as well as moderate -to-severe mitral regurgitation and due to left atrial appendage clot, it was felt that she was not a candidate for the MitraClip 03/28/18, but that she have 3 months of continued therapeutic anticoagulation for resolution of clot or be referred for mitral valve repair/replacement. She is coming in with chest pain with some atypical features, so agree with rule out myocardial infarction protocol. RECOMMENDATIONS: 1. Agree with rule out MD protocol as is instituted. 2. Given history of increased heart rate, can increase the Coreg to 12.5 mg p.o. b.i.d. 3. Will reassess her mitral regurgitation with transthoracic echocardiogram and if severe, plan for early referral for mitral valve replacement/repair as she appears to be decompensating given her VT. 4. For her ischemic cardiomyopathy, she will continue lisinopril, Coreg at increased dose of 12.5 mg p.o. b.i.d., Zocor, aspirin, and Plavix. Plan to continue her dual antiplatelet therapy given her DAPT score of greater than 2 until 07/07/20. 5. The patient is on Coumadin for history of prior DVTs and would recommend rule out DVT/PE given her recent chest pain understanding that while she may be therapeutically anticoagulated, she did develop a left atrial appendage clot despite being therapeutically anticoagulated. 6. Will follow patient closely with you and other cardiac recommendations to follow pending above. 7. Other management as well as per Hospitalist Medicine service. I have discussed the patient's case with Dr. Keiry Garvey and Ms. Cornejo. Dear Dr. Ellis Garvey and Ms. Mimi Cornejo,many thanks for asking me to participate in the cardiovascular consultative care of Ms. Wilkerson. Please do not hesitate to contact me if you have any questions or concerns regarding the patient's cardiovascular consultative care. [id number]/[facility] #: [id number] NALLELY
--- NOTE | 2018-06-13 19:18 | HP ---
CC: Dr. Sidhu* [facility] MEDICINE HISTORY AND PHYSICAL: DATE OF ADMISSION: 06/13/18 PRIMARY CARE PROVIDER: Dr. Sidhu. ATTENDING PHYSICIAN: Dr. Omid Palma* (dictation provided by Mimi Cornejo NP). CHIEF COMPLAINT: Chest pain and alarm of ICD. HISTORY OF PRESENT ILLNESS: Ms. Wilkerson is a 63-year-old female with a complicated past medical history including coronary artery disease with CABG with a recent re-eval with cardiac catheterization on 03/28/[address] Hall showing patent LAD and left circumflex stents, normal RCA, and an ostial lesion in the VELA graft to the left PDA that appeared unchanged from previous. She also had noted odnszafl-vc-wzfnyp mitral regurgitation. There were plans for a MitraClip procedure for this valvular abnormality, but a transesophageal echocardiogram was recently performed which showed a left atrial appendage clot. Plan therefore was for the patient to go on Coumadin for 3 months and to repeat a LULU to see if the clot had resolved. The patient states that she also has a history of COPD; obstructive sleep apnea, on home CPAP; type 2 diabetes. The patient states that yesterday she noticed that her LifeVest was alarming. She states that the LifeVest did not go off because she hit the stop button. Last night she developed chest pain. She states that the pain was quite severe. She had pain through the night and then again today. She took a dose of nitro at one point, which seemed to resolve the pain, but when she tried to take a second dose of nitro today, it did not help and therefore she called the sole buffer office and then was directed to come immediately to the emergency room. She states she feels quite tired and hungry now, but she denies any current pain. She denies shortness of breath. She denies any recent fevers or cough. She has had no nausea, vomiting, diarrhea, or abdominal pain. In the emergency room, Ms. Wilkerson had a troponin which was 0.03. Her INR was 2.58. Her vital signs were stable. PAST MEDICAL HISTORY: 1. Coronary artery disease with CABG, most recent cardiac catheterization on showing patent LAD and left circumflex stents. 2. Caevwboc-ts-kvnoqo mitral regurgitation. 3. Left atrial appendage with plans for 3 months of Coumadin therapy and repeat LULU. 4. Type 2 diabetes, non-insulin dependent. 5. COPD. 6. Obstructive sleep apnea, on CPAP at night. 7. Chronic congestive heart failure with last known ejection fraction 30% to 35 %. 8. LifeVest. 9. Chronic pain secondary to shoulder injury, on oxymorphone. 10. History of rectal cancer, status post chemo and radiation in 2009. 11. Hypertension. 12. Hyperlipidemia. 13. Restless leg syndrome with a history of DVT 14. History of cervical cancer. MEDICATIONS: 1. Symbicort 80/4.5 one puff inhaled b.i.d. 2. Albuterol 1 mg inhaled q.i.d. p.r.n. 3. Multivitamin with mineral 1 tab p.o. daily. 4. Cyanocobalamin 1000 mcg p.o. daily. 5. Aspirin 81 mg p.o. daily. 6. Lisinopril 2.5 mg p.o. daily. 7. Carvedilol 6.25 mg p.o. b.i.d. 8. Pantoprazole 40 mg p.o. daily. 9. Furosemide 40 mg p.o. daily. 10. BuSpar 15 mg p.o. t.i.d. 11. ReQuip 1 mg p.o. daily. 12. Glipizide with metformin 2.5/250 one tab p.o. daily. 13. Clopidogrel 75 mg p.o. daily. 14. Warfarin 5 mg p.o. daily. 15. Simvastatin 5 mg p.o. daily. 16. Nitrofurantoin p.r.n. 17. Hydroxyzine 25 mg p.o. at bedtime. 18. Opana 5 mg p.o. q.8 hours p.r.n. 19. Alpha lipoic acid 200 mg p.o. q.i.d. ALLERGIES: BUPROPION, LIDOCAINE, PENICILLIN, SHELLFISH, SILVER SULFADIAZINE, and SULFA ANTIBIOTICS. FAMILY HISTORY: Father had Parkinson disease and dementia, heart disease and a pacemaker. Mother had MO and emphysema. SOCIAL HISTORY: No report of alcohol use or illicit drug use. She is a former smoker. She quit in 2002. REVIEW OF SYSTEMS: A 14-point review of systems was completed with Ms. Wilkerson and all those not mentioned above were negative. PHYSICAL EXAMINATION GENERAL: Ms. Wilkerson is sitting up on the bed. She appears mildly short of breath at rest, but she states that her breathing is at baseline. VITAL SIGNS: Temperature 97.8, pulse rate 81, respiratory rate 16, O2 saturation 96% on room air, blood pressure 130/58. LUNGS: Clear to auscultation bilaterally with no accessory muscle use and good aeration. HEART: S1 and S2 with a murmur of mitral regurgitation. It was difficult to hear with the patient's anatomy and positioning. ABDOMEN: Soft, nontender with bowel sounds positive x4. EXTREMITIES: No cyanosis or edema. NEUROLOGIC: She is alert. She is oriented x3. She moves all extremities equally. There is no facial asymmetry or focal weakness. Extraocular movements are intact. SKIN: Intact. DIAGNOSTIC STUDIES/LAB DATA: WBC is 7.7, hemoglobin 14.6, hematocrit 42, platelet count 183, INR 2.58. Sodium 140, potassium 3.7, chloride 104, serum bicarbonate 26, BUN 14, creatinine 0.93, glucose 104, lactic acid 2.0, magnesium is pending. Troponin is 0.03. BNP is 439. Urine shows no evidence of infection. Chest x-ray shows stigmata of obstructive lung disease, no acute cardiomegaly, no acute pulmonary or cardiac process evident. ASSESSMENT: Ms. Wilkerson is a 63-year-old female with a complicated past medical history including coronary artery disease with coronary artery bypass graft, ejection fraction of 30% to 35%, left atrial appendage clot, moderate-to- severe mitral regurgitation, chronic obstructive pulmonary disease and asthma, obstructive sleep apnea, and diabetes, who presents to the hospital, was concerned for alarming of her ICD and chest pain. Our plans are for inpatient admission with expected length of stay to be greater than 2 days for the followin. Chest pain. The patient states she had severe chest pain through the night. Her first troponin is negative. We will repeat troponin x2. She will have an EKG with each troponin. Dr. Roman has been consulted and he is her sole buffer as outpatient. He states that we should work her out with serial troponins. If those are negative, no stress testing would be indicated as she recently had a stress test with Dr. Hall as outpatient. If troponins are positive, we will need to review the case with Dr. Roman again to determine if stress test versus cardiac catheterization would be warranted. Dr. Roman has recommended that a CTA chest be performed to rule out pulmonary embolism given the patient's history of DVT on Coumadin in the past. He has a concern for possible failure of Coumadin therapy despite the fact the patient is therapeutic. CT has been performed and the results are pending. 2. Ventricular tachycardia. Her LifeVest was interrogated today and found that she did have episodes of ventricular tachycardia as had been reported by the alarming LifeVest. The plans are for the patient to have repletion of her potassium, which is 3.7 today with a goal of approximately 4.5. Her magnesium level is pending, but we will replete if necessary. Dr. Roman indicates that the patient would likely need to remain in the hospital pending ICD placement with Dr. Valles. 3. Type 2 diabetes. Plan to hold home medications and blood glucoses q.a.c. with lispro sliding scale. 4. History of depression. Continue BuSpar. 5. Hypertension. Continue her carvedilol and lisinopril. 6. History of DVT and left atrial appendage clot. Continue warfarin. Her INR is therapeutic. 7. Chronic pain. Continue oxymorphone. 8. History of chronic congestive heart failure, no evidence of exacerbation today. Continue home furosemide. 9. History of coronary artery disease. Continue aspirin. Plavix, and simvastatin. 10. DVT prophylaxis with therapeutic INR and SCDs. 11. Code status is full code. TIME SPENT: Approximately 60 minutes was spent on the admission of this patient , more than half of the time was spent with the patient at the bedside reviewing the events leading up to this hospitalization, performing the physical examination, and reviewing my plan of care. MIMI CORNEJO, NOHEMI [id number]/[facility] #: [id number] NALLELY
[2018-06-13] MEDS: Carvedilol TAB* 6.25 MG PO SCH (19:30)
[2018-06-13] MEDS: busPIRone TAB* 15 MG PO SCH (19:30)
[2018-06-13] MEDS ORDERED: Carvedilol TAB* 6.25 MG PO SCH (21:00)
[2018-06-13] MEDS ORDERED: hydrOXYzine HCL TAB* 25 MG PO SCH (21:00)
[2018-06-14] MEDS: KCL 20 MEQ/100 ML IVPREMIX* 20 MEQ/100 ML BAG IV SCH (00:49)
[2018-06-14 07:06] LABS: Calcium 9.4 mg/dL (8.6-10.3); EGFR Non-African American 71.6 (>60); Magnesium 2.3 mg/dL (1.9-2.7); Potassium 4.7 mmol/L (3.5-5.0)
[2018-06-14] MEDS ORDERED: Insulin LISPRO* 1 UNITS UNIT SUBCUT SCH (07:30)
[2018-06-14] MEDS ORDERED: Clopidogrel TAB* 75 MG PO SCH (09:00)
[2018-06-14] MEDS ORDERED: Amiodarone IV VIAL* 50 MG/ML 3 ML VIAL (150 MG) SLOW PUSH ONE (09:00)
[2018-06-14] MEDS ORDERED: Aspirin EC TAB* 81 MG TAB.EC PO SCH (09:00)
[2018-06-14] MEDS ORDERED: Cyanocobalamin TAB* 500 MCG PO SCH (09:00)
[2018-06-14] MEDS ORDERED: Furosemide TAB* 40 MG PO SCH (09:00)
[2018-06-14] MEDS ORDERED: CMCS:Pantoprazole TAB (NF) 40 MG TAB PO SCH (09:00)
[2018-06-14] MEDS ORDERED: Multivitamins/Minerals TAB PO SCH (09:00)
[2018-06-14] MEDS ORDERED: Ropinirole TAB* 0.5 MG TAB PO SCH (09:00)
[2018-06-14] MEDS ORDERED: Lisinopril TAB* 5 MG PO SCH (09:00)
[2018-06-14] MEDS ORDERED: Morphine VIAL* 4 MG/ML VIAL (1 ml vial) ONE (09:07)
[2018-06-14] MEDS ORDERED: Nitroglycerin TAB 0.4 MG* 0.4 MG TAB ONE (09:08)
[2018-06-14] MEDS ORDERED: Nitroglycerin TAB 0.4 MG* 0.4 MG TAB SL PRN (09:09)
[2018-06-14] MEDS ORDERED: Amiodarone TAB* 200 MG ONE (09:10)
[2018-06-14] MEDS ORDERED: Ondansetron INJ* 2 MG/ML VIAL ONE (09:10)
[2018-06-14] MEDS ORDERED: Amiodarone 150 MG IVPREMIX* 150 MG/100 ML BAG IV ONE (09:11)
[2018-06-14] MEDS ORDERED: Morphine VIAL* 4 MG/ML VIAL (1 ml vial) IV ONE (09:11)
[2018-06-14 09:23] LABS: ABS Basophils 0.1 10^3/ul (0-0.2); ABS Eosinophils 0.2 10^3/ul (0-0.6); ABS Lymphocytes 2.1 10^3/ul (1.0-4.8); ABS Monocytes 0.6 10^3/ul (0-0.8); ABS Neutrophils 4.9 10^3/ul (1.5-7.7); ABS Nucleated RBC 0 10^3/ul; Eosinophil % 2.1 %; Hematocrit 40 % (35-47); Lymphocyte % 26.7 %; Mean Corpuscular HGB Conc 35 g/dl (31-36); Mean Corpuscular Hemoglobin 31 pg (27-31); Mean Corpuscular Volume 88 fL (80-97); Mean Platelet Volume 7.6 fL (7.4-10.4); Nucleated Red Blood Cells % 0.1; Platelet Count 185 10^3/ul (150-450); Red Blood Count 4.57 10^6/ul (4.00-5.40); Red Cell Distribution Width 16 % (10.5-15); White Blood Count 7.8 10^3/ul (3.5-10.8)
[2018-06-14] MEDS ORDERED: Amiodarone 360 MG IVPREMIX* 360 MG/200 ML BAG IV ONE (09:30)
[2018-06-14 09:40] LABS: Albumin 4.6 g/dL (3.2-5.2); Albumin/Globulin Ratio 1.8 (1-3); BUN/Creatinine Ratio 14.3 (8-20); Calcium 9.7 mg/dL (8.6-10.3); EGFR Non-African American 68.7 (>60); Globulin 2.5 g/dL (2-4); Magnesium 2.2 mg/dL (1.9-2.7); Potassium 4.8 mmol/L (3.5-5.0); Total Protein 7.1 g/dL (6.4-8.9)
--- NOTE | 2018-06-14 09:43 | ECHO ---
Patient: SHARRON BACA [facility] Rec#: [id number] : 1955 Date: 06/14/2018 Age: 63y Height: 163 cm / 64.2 in Weight: 82.6 kg / 182.1 lbs Sex: F BSA: 1.88 Room#: [facility] Admit Date#: 06/13/2018 Type: Inpatient Referring: Mimi Cornejo NP Reading: Royce Roman MD Fiscal Services Manager: Mindy Shafer RDCS CC: Kim Sidhu MD Transthoracic Echocardiogram Indication: Chest pain BP: 130/58 HR: 62 Rhythm: NSR with PVCs Findings History: CAD, s/p CAVG 3 vessel, DVT, MADHAV with CPAP, chemotherapy for rectal cancer, PCI, patient wears a Zoll Lifevest. Technical Comments: The study quality is fair. Completed at 0900. Left Ventricle: The left ventricular chamber size is moderately dilated. There is no left ventricular hypertrophy. There is diffuse global hypokinesis of the left ventricle. There is severely decreased left ventricular systolic function. The estimated ejection fraction is 25-30%. Post surgical hypokinesis of the interventricular septum is observed consistent with coronary artery bypass. The assessment of diastolic function is non-diagnostic. Left Atrium: The left atrium is moderate to severely dilated. Right Ventricle: Moderator Band present. The right ventricle is mildly dilated. The right ventricular global systolic function is mildly reduced. Right Atrium: The right atrium is moderately dilated. Aortic Valve: The aortic valve is trileaflet. The aortic valve leaflets are mildly thickened. There is no evidence of aortic regurgitation. There is no evidence of aortic stenosis. Mitral Valve: There is mitral annular calcification. The mitral valve leaflets are mildly thickened. There is severe mitral regurgitation. Tricuspid Valve: The tricuspid valve leaflets are normal. There is mild to moderate tricuspid regurgitation. The right ventricular systolic pressure is estimated at 32 mmHg. No pulmonary hypertension is noted. Pulmonic Valve: The pulmonic valve appears normal. There is no evidence of pulmonic regurgitation. There is no pulmonic stenosis. Pericardium: There is no significant pericardial effusion. Aorta: There is no dilatation of the ascending aorta. The aortic arch is not well visualized. The aortic root is normal in size. Pulmonary Artery: The main pulmonary artery appears normal. Venous: The inferior vena cava appears normal in size. There is a greater than 50% respiratory change in the inferior vena cava dimension. Conclusions There is severely decreased left ventricular systolic function. The estimated ejection fraction is 25-30%. The left atrium is moderate to severely dilated. The right ventricle is mildly dilated. The right ventricular global systolic function is mildly reduced. The right atrium is moderately dilated. There is severe mitral regurgitation. There is mild to moderate tricuspid regurgitation. No pulmonary hypertension is noted. Since the prior echocardiogram completed 02/27/18, pertinent change is prior normal right ventricular size and right ventricular function noted. Measurements Name Value Normal Range RVIDd (AP) 2D 3.3 cm (0.9 - 2.6) RVDdMajor (2D) 4.9 cm (2.2 - 4.4) RAd ISD 4CH 5.7 cm (3.4 - 4.9) RA (A4C)W 5.1 cm (2.9 - 4.6) IVSd (2D) 0.9 cm (0.6 - 1) LVPWd (2D) 1 cm (0.6 - 1) LVIDd (2D) 6.4 cm (3.6 - 5.4) LVIDs (2D) 5.1 cm - LV FS (2D) 20 % (25 - 45) Aortic Annulus 1.7 cm (1.4 - 2.6) Ao root diameter (2D) 2.8 cm (2.1 - 3.5) Ascending Ao 3.2 cm (2.1 - 3.4) LA dimension (AP) 2D 5 cm (2.3 - 3.8) LAd ISD 4CH 6.1 cm (2.9 - 5.3) LA ISD 4CH W 4.6 cm (2.5 - 4.5) Name Value Normal Range LA ESV BP (A/L) index 43 ml/m2 - Name Value Normal Range MV E-wave Vmax 1.3 m/sec - MV deceleration time 201 msec - MV A-wave Vmax 0.7 m/sec - MV E:A ratio 1.7 ratio - LV septal e' Vmax 0.05 m/sec - LV lateral e' Vmax 0.05 m/sec - LV E:e' septal ratio 26 ratio - LV E:e' lateral ratio 26 ratio - Name Value Normal Range AV Vmax 1.1 m/sec - AV VTI 26 cm - AV peak gradient 4 mmHg - AV mean gradient 2 mmHg - LVOT Vmax 0.5 m/sec - LVOT VTI 10 cm - LVOT peak gradient 1 mmHg - Name Value Normal Range MR Vmax 4.9 m/sec - MR VTI 179 cm - MR flow (PISA) 79.3 ml/sec - MR ERO 0.16 cm2 - MR PISA radius 0.6 cm - MR alias Vmax 35.1 cm/sec - Name Value Normal Range TR Vmax 2.7 m/sec - TR peak gradient 29 mmHg - RAP 3 mmHg - RVSP 32 mmHg - IVC diameter 2.11 cm - Name Value Normal Range PV Vmax 0.7 m/sec - PV peak gradient 2 mmHg -
[2018-06-14] MEDS: Carvedilol TAB* 6.25 MG PO SCH (10:18)
[2018-06-14] MEDS: busPIRone TAB* 15 MG PO SCH (10:19)
[2018-06-14 10:56] VITALS: BP 155/78
--- NOTE | 2018-06-14 12:49 | CONS ---
CRITICAL CARE CONSULTATION REPORT: DATE OF CONSULT: 06/14/18 CONSULTATION REQUESTED BY: Dr. Omid Palma. HISTORY OF PRESENT ILLNESS: The patient is a 63-year-old female with history of coronary artery disease, status post CABG, underwent recent repeat catheterization in March of 2018, which showed patent LAD and left circumflex stents, normal RCA and ostial lesion in VELA graft to the left PDA that appeared unchanged from previous cath report. The patient also noted to have nyaihhwn-me-prhixw mitral regurgitation. The patient also noted to have left atrial appendage clot. The patient was initiated on Coumadin to be continued for three months and to have a repeat LULU to see if the clot has resolved. The patient also to have mitral clip procedure for valvular abnormality. The patient came in for evaluation of chest pain and firing of ICD. The patient had a LifeVest since recent CABG procedure, and she started to notice the LifeVest was alarming and she hit the stop button. She developed chest pain the night before admission, which worsened into the next day which did not relieve with nitro. She called her archivist, who directed her to come into the emergency room and she comes for further evaluation. Upon evaluation in the emergency room, she was noted to have troponin measuring 0.03. Her vital signs were stable. She denied any pain. The patient while on the floor had episodes of non-sustained VT. This morning, she had an episode of persistent ventricular tachycardia and has received a shock. She was transferred to ICU for close monitoring. The patient was seen and examined at bedside. The patient denied any symptoms other than feeling tired. The patient denied chest pain, shortness of breath, palpations, dizziness, headache, nausea, abdominal pain, urinary complaints. She has been saturating with oxygen which she uses at home as well and she is pain free and comfortable. PAST MEDICAL HISTORY: 1. Coronary artery disease, status post CABG. Recent cardiac cath showed patent LAD and left circumflex stents. 2. Jtqyozds-le-lurkrs mitral regurgitation, awaiting clip placement. 3. Left atrial appendage with plans for Coumadin for three months and follow up LULU. 4. Type 2 diabetes. 5. COPD. 6. Obstructive sleep apnea, on CPAP. 7. Chronic congestive heart failure with EF 30 to 35%. 8. Chronic pain secondary to shoulder injury. 9. History of rectal cancer, status post chemo and radiation in 2009. 10. Hypertension. 11. Dyslipidemia. 12. Restless leg syndrome with history of DVT. 13. History of cervical cancer. MEDICATIONS: 1. Symbicort. 2. Albuterol. 3. Multivitamin. 4. Cyanocobalamin. 5. Aspirin. 6. Lisinopril. 7. Carvedilol. 8. Pantoprazole. 9. Furosemide. 10. BuSpar. 11. Requip. 12. Glipizide. 13. Clopidogrel. 14. Warfarin. 15. Simvastatin. 16. Nitrofurantoin. 17. Hydroxyzine. 18. Opana. 19. Alpha-lipoic acid. ALLERGIES: BUPROPION, LIDOCAINE, PENICILLIN, SHELLFISH,SILVER SULFADIAZINE, SULFA ANTIBIOTICS. FAMILY HISTORY: Parkinson's and dementia, heart disease and pacemaker. Mother had NM and emphysema. SOCIAL HISTORY: No alcohol or drug abuse. She is a former smoker, quit in 2002. REVIEW OF SYSTEMS: 14-point review of systems was completed and as per HPI. PHYSICAL EXAM: The patient in no apparent distress, lying in bed. Vital Signs : Temperature 96.4, pulse 63 beats per minute, respiratory rate 18 to 24 per minute, O2 sat 98% on 2 liters, blood pressure 119/58. HEENT: Pupils are equal and reactive to light, mucous membranes moist. Lungs: Clear to auscultation bilaterally. Cardiovascular: S1 and S2 present, regular, murmur present. Abdomen: Soft, nontender, nondistended. Bowel sounds present. Extremities: Normal range of motion. Neuro: Alert, awake, oriented x3. No focal deficits. Skin: No rash or bruises. DIAGNOSTIC STUDIES/LAB DATA: WBC count 7.8, hemoglobin 14, hematocrit 40, platelet count 185. INR 2.58. Sodium 138, potassium 4.8, chloride 105, bicarb 24, BUN 12, creatinine 0.84. Troponins within normal limits. CT of the chest was personally reviewed by me -- no evidence of filling defects in pulmonary arteries. Mild dependent atelectasis on the right side. IMPRESSION AND RECOMMENDATION: 63-year-old female with significant cardiac history, status post CABG, history of hhjywaut-ai-rngarx mitral regurgitation, and possible atrial thrombus on anticoagulation, admitted with chest pain and alarm on the LiftVest ICD with sustained V-tach this morning requiring cardioversion. The patient transferred to ICU for close monitoring. The patient is stable at this time. She had low potassium and magnesium on admission that were repleted. Electrolytes within normal limits this morning. She is not hypoxemic. She is not in acute COPD exacerbation. She uses CPAP at night, which will be ordered for today. Cardiology followup noted. The patient to be transferred to [facility] for mitral valve surgery. Dr. Roman is coordinating the transfer. Thank you for allowing me to participate in the care of your patient. Will follow up with you. [id number]/[facility] #: [id number] NALLELY
--- NOTE | 2018-06-14 13:22 | TRS ---
Amended report to enter cosigning physician. CC: Dr. Sidhu* DISCHARGE AND TRANSFER SUMMARY: DATE OF ADMISSION: 06/13/18 DATE OF TRANSFER: 06/14/18 PRIMARY CARE PROVIDER: Dr. Sidhu. TUNNEL ELASTIC OPERATOR LOCKSTITCH: Dr. Roman. ATTENDING PHYSICIAN: Dr. Omid Palma* (dictated by Vanessa Washington NP). PRIMARY DIAGNOSES: 1. Ssigckds-lf-vjdvok mitral regurgitation/mitral stenosis. 2. Ventricular tachycardia. SECONDARY DIAGNOSES: 1. Coronary artery disease with CABG, most recent cardiac catheterization on showing patent LAD and left circumflex stents. 2. Left atrial appendage clot with plans for 3 months of Coumadin therapy and repeat LULU. 3. Type 2 diabetes, non-insulin dependent. 4. Chronic obstructive pulmonary disease. 5. Obstructive sleep apnea, on CPAP at night. 6. Chronic congestive heart failure with last known ejection fraction 30% to 35 %. 7. LifeVest. 8. Chronic pain secondary to shoulder injury, on oxymorphone. 9. History of rectal cancer, status post chemotherapy and radiation in 2009. 10. Hypertension. 11. Hyperlipidemia. 12. Restless legs syndrome with a history of deep venous thrombosis. 13. History of cervical cancer. CONSULTATIONS WHILE IN THE HOSPITAL: Dr. Roman was consulted. It should be noted that Dr. Roman is also her outpatient act english tutor. STUDIES WHILE IN THE HOSPITAL: 1. Chest x-ray, impression: Stigmata of chronic lung disease. No acute cardiomegaly. No acute pulmonary or cardiac process evident. 2. Chest/thoracic CTA, impression: No pulmonary arterial filling detected to suggest pulmonary embolism. Small non-solid nodule of the right upper lobe. Given the history of malignancy, the differential includes metastatic disease or primary pulmonary neoplasm. This can be identified in retrospect on a previous examination and is stable. The 8 months of stability suggests an indolent lesion. Recommend attention on followup imaging in 6 months, followup CT of chest. Cardiomegaly. Atherosclerosis. 3. Transthoracic echo, impression: There is severely decreased left ventricular systolic function. The estimated ejection fraction is 25% to 30%. The left atrium is moderate to severely dilated. The right ventricle is mildly dilated. The right ventricular global systolic function is mildly reduced. The right atrium is moderately dilated. There is severe mitral regurgitation. There is mild-to- moderate tricuspid regurgitation. No pulmonary hypertension is noted. TRANSFER MEDICATIONS: Amiodarone 360 mg/200 mL, 1 mg per minute for 6 hours started at 0930. Medications received today: 1. Aspirin 81 mg. 2. BuSpar 15 mg. 3. Coreg 12.5 mg. 4. Plavix 75 mg. 5. Vitamin B12 1000 mcg. 6. Lasix 40 mg p.o. 7. Lisinopril 2.5 mg. 8. Multivitamin 1 tab. 9. Protonix 40 mg p.o. 10. Amiodarone 150 mg IV push at 0915. 11. Morphine 4 mg IV push at 0919. 12. Nitro 0.4 mg sublingual at 0919. 13. Zofran 4 mg IV at 0918. 14. Potassium 20 mEq IV at 0049. Home medications: 1. Symbicort 80/4.5 one puff inhaled b.i.d. 2. Albuterol 1 mg inhaled q.i.d. p.r.n. 3. Multivitamin 1 tab p.o. daily. 4. Vitamin B12 1000 mcg p.o. daily. 5. Aspirin 81 mg p.o. daily. 6. Lisinopril 2.5 mg p.o. daily. 7. Carvedilol 6.25 mg p.o. b.i.d. 8. Pantoprazole 40 mg p.o. daily. 9. Furosemide 40 mg p.o. daily. 10. BuSpar 15 mg p.o. t.i.d. 11. Requip 1 mg p.o. daily. 12. Glipizide with metformin 2.5/250 one tab p.o. daily. 13. Plavix 75 mg p.o. daily. 14. Warfarin 5 mg p.o. daily. 15. Simvastatin 5 mg p.o. daily. 16. Nitroglycerin p.r.n. 17. Hydroxyzine 25 mg p.o. at bedtime. 18. Opana 5 mg p.o. q.8 hours p.r.n. 19. Alpha lipoic acid 200 mg p.o. q.i.d. HISTORY OF PRESENT ILLNESS/HOSPITAL COURSE: Ms. Wilkerson is a 63-year-old female with past medical history significant for coronary artery disease with CABG with a recent reevaluation with cardiac catheterization on 03/28/[address] Rafael showing patent LAD and left circumflex stents, normal RCA, and an ostial lesion in the VELA graft to the left PDA that appeared unchanged from previous. She also has vlyqlapu-br-seennj mitral regurgitation, left atrial appendage with plans of 3 months of Coumadin, type 2 diabetes, COPD, obstructive sleep apnea, chronic CHF, who presented to the emergency department on 06/13/18 with complaints of chest pain and alarm on her ICD. The patient stated that 06/12 she noticed that her LifeVest was alarming. She states the LifeVest did not go off because she hit the button to stop it. Over the evening , she developed chest pain that was quite severe. The pain lasted through the night, at which point she took a nitro which seemed to resolve the pain. When she awoke in the morning of 06/13, pain was still present. She took a second dose of nitro which did not help. Therefore, she called her act english tutor who instructed her to come to the emergency room, and she presented to our emergency room. Please see history and physical by Mimi Cornejo for a complete summary of events leading up to the hospitalization, but in short, the patient was admitted last night due to her significant cardiac history, which includes coronary artery disease with coronary artery bypass graft, ejection fraction of 30% to 35%, left atrial appendage clot, wpacbtsv-xv-qepjyg mitral regurgitation , COPD, MADHAV, and diabetes. While the patient was in the hospital, she had repeat troponins with a total of 3, all of which were 0.03. With each troponin , the patient had an EKG, each reading sinus rhythm with PVCs and right bundle- branch block. The patient's outpatient act english tutor was consulted, Dr. Roman, who recommended a CTA of the chest to rule out pulmonary embolism, which was negative. In addition, her LifeVest was interrogated and it was found she had episodes of ventricular tachycardia; therefore, her potassium was replaced, which was 3.7 on admission and is now 4.8. In addition, the patient received magnesium as her admission magnesium level was 1.8, it is now 2.2. Unfortunately, the patient's hospital stay became complicated as at around 0910 this morning she was noted to be in ventricular tachycardia on the tele monitor. Her LifeVest did not activate as it is set for 160 bpm and sh was approx 150 bpm. The patient was stable and talking, but complaining of chest pain. The patient's ventricular tachycardia was sustained and she became symptomatic with increasing chest pain; therefore, the patient was cardioverted by Dr. Roman and is now in sinus rhythm with a rate of 83. In addition, at this time, the patient received an amiodarone bolus of 150 and a subsequent amiodarone drip of 1 mg per minute was initiated. Due to the patient's decompensation and sustained lethal ventricular tachycardia , the patient requires transfer to a higher level of care specifically [facility] for repair/replacement of her mitral valve under the care of Dr. Marcia Bradshaw with Cardiothoracic Surgery. The patient is currently stable, but guarded. Therefore, she requires transportation via ALS with a property field inspector present. REVIEW OF SYSTEMS: The patient is currently resting in bed on the monitor. Denies chest pain, shortness of breath, nausea, vomiting. A 12-point review of systems was completed and all negative. PHYSICAL EXAMINATION: General: Ms. Wilkerson is lying in bed. She appears in no distress. Vital Signs: Temp 98.4, HR 87, RR 17, O2 sat 94% on 2 L nasal cannula, BP 155/78. Lungs: Clear to auscultation bilaterally. Heart: S1 and S2 present with murmur appreciated. Abdomen: Soft, nontender with bowel sounds x4. Extremities: No cyanosis or edema. Neurological: She is alert, oriented x4. Moves all extremities well. No focal deficits or weakness. LABORATORY DATA: Most recent labs were drawn on 06/14/18 at 0918: Sodium 138, potassium 4.8, chloride 105, carbon dioxide 24, BUN 12, creatinine 0.84, glucose 160, calcium 9.7, magnesium 2.2. Total bilirubin 1.00, AST 15, ALT 15, alk phos 78. WBC 7.8, hemoglobin 14, hematocrit 40, platelets 185. On 06/13/18, BNP was 439. INR 2.58 and APTT 39.3. DISCHARGE PLAN/TRANSFER PLAN: The patient will be transferred to [facility] in [place], [place]. She will be under the care of Dr. Marcia Bradshaw. Dr. Roman (Cardiology) has contacted this provider who has accepted this patient. The transfer center has been contacted and we are awaiting ETA of transport. Per ICU staff doc to doc was completed by Dr Roman and staff nurse completed nurse to nurse This is a summarized report of a complex medical history and hospital stay. For further details, please see entire medical record. This plan was also reviewed with my attending Dr Omid Palma who agrees with my plan TIME SPENT: Approximately 60 minutes was spent on this transfer, greater than half that time was spent [id number] with the patient discussing discharge plans and instructions. VANESSA WASHINGTON NP [id number]/[facility] #: [id number] NALLELY
[2018-06-14] MEDS ORDERED: Warfarin TAB(*) 5 MG PO SCH (17:00)
== END 2018-06-14 17:10 | disposition short-term general hospital (02) | DRG 310 ==
LOC: ED 13:31 → MEDTELE 15:45 → ICU 06-14 09:29
PROVIDERS: ADMIT Internal Medicine; ATTEND Student in an Organized Health Care Education/Training Program
PROC: 5A09357 Assistance with Respiratory Ventilation, Less than 24 Consecutive Hours, Continuous Positive Airway Pressure (ICD-10-PCS; principal; 2018-06-13)
PROC: 4B02XTZ Measurement of Cardiac Defibrillator, External Approach (ICD-10-PCS; 2018-06-13)
DX: I47.2 Ventricular tachycardia (principal); I08.1 Rheumatic disorders of both mitral and tricuspid valves; I11.0 Hypertensive heart disease with heart failure; E78.5 Hyperlipidemia, unspecified; G25.81 Restless legs syndrome; G89.29 Other chronic pain; I25.10 Atherosclerotic heart disease of native coronary artery without angina pectoris; G47.33 Obstructive sleep apnea (adult) (pediatric); I50.9 Heart failure, unspecified; J44.9 Chronic obstructive pulmonary disease, unspecified; F32.9 Major depressive disorder, single episode, unspecified; F41.9 Anxiety disorder, unspecified; G40.909 Epilepsy, unspecified, not intractable, without status epilepticus; I48.0 Paroxysmal atrial fibrillation; Z96.0 Presence of urogenital implants; E87.6 Hypokalemia; E83.42 Hypomagnesemia; I49.3 Ventricular premature depolarization; I45.10 Unspecified right bundle-branch block; I51.3 Intracardiac thrombosis, not elsewhere classified; R91.1 Solitary pulmonary nodule; I25.5 Ischemic cardiomyopathy; Z88.2 Allergy status to sulfonamides; Z88.8 Allergy status to other drugs, medicaments and biological substances; Z86.718 Personal history of other venous thrombosis and embolism; Z85.048 Personal history of other malignant neoplasm of rectum, rectosigmoid junction, and anus; Z85.41 Personal history of malignant neoplasm of cervix uteri; Z92.21 Personal history of antineoplastic chemotherapy; Z92.3 Personal history of irradiation; Z88.0 Allergy status to penicillin; Z91.013 Allergy to seafood; Z82.49 Family history of ischemic heart disease and other diseases of the circulatory system; Z82.5 Family history of asthma and other chronic lower respiratory diseases; Z95.1 Presence of aortocoronary bypass graft; Z87.891 Personal history of nicotine dependence; Z82.0 Family history of epilepsy and other diseases of the nervous system; I25.2 Old myocardial infarction; Z90.721 Acquired absence of ovaries, unilateral; Z95.5 Presence of coronary angioplasty implant and graft; Z79.82 Long term (current) use of aspirin; Z79.02 Long term (current) use of antithrombotics/antiplatelets; Z79.51 Long term (current) use of inhaled steroids; Z79.01 Long term (current) use of anticoagulants; Z79.84 Long term (current) use of oral hypoglycemic drugs
CPT/HCPCS: 36415; 71045; 71275; 80048; 80053; 81003; 81015; 83605; 83735; 83880; 84484; 84702; 85025; 85610; 85730; 87086; 93005; 93306; 94660; 99284; A9270-GY; J0282; J2270; J2405; J3475; J3480; Q9967

== ENCOUNTER 2019-03-26 15:53 | Inpatient (IN) | payer MEDICARE ==
[2019-03-26] MEDS ORDERED: Albuterol/Ipratropium NEB.SOL* Albuterol 2.5 MG/Ipratropium 0.5 MG 3 ML INH ONE (16:08)
[2019-03-26] MEDS ORDERED: methylPREDNISolone 125 MG* 2 ML VIAL IV ONE (16:08)
[2019-03-26 16:58] LABS: ABS Eosinophils 0.1 10^3/ul (0-0.6); ABS Lymphocytes 1.2 10^3/ul (1.0-4.8); ABS Monocytes 0.7 10^3/ul (0-0.8); ABS Neutrophils 7.7 10^3/ul (1.5-7.7); Eosinophil % 0.6 %; Hematocrit 42 % (35-47); Hemoglobin 14.5 g/dL (12.0-16.0); Lymphocyte % 12.1 %; Mean Corpuscular HGB Conc 35 g/dL (31-36); Mean Corpuscular Hemoglobin 31 pg (27-31); Mean Corpuscular Volume 89 fL (80-97); Mean Platelet Volume 7.2 fL (7.4-10.4); Nucleated Red Blood Cells % 0.1; Platelet Count 213 10^3/uL (150-450); Red Blood Count 4.73 10^6 /uL (3.70-4.87); Red Cell Distribution Width 15 % (10-15); White Blood Count 9.6 10^3/uL (3.5-10.8)
--- NOTE | 2019-03-26 17:00 | ED ---
Shortness of Breath - HPI Summary HPI Summary: Pt is a 64 y/o F w hx COPD, CABG, CAD, mitral valve replacement presenting to the ED for a chief complaint of SOB and CP. Pt is present with her . After going to the bathroom at a restaurant, pt began to feel dizziness and lightheaded. Pt reports CP, cough, nausea, and fatigue. Pt describes that the CP is mid-sternal and radiated to the right arm which currently feels like a heavy sensation. Pt denies fever. Pt took NTG for the CP with some relief. Pt only takes NTG for CP. Pt had a similar episode one month ago after visiting neighbors for which she did not go to the ED. Pt has not had a stress test since June 2018. Pt has a PSHx of a mitral valve repair performed in June 2018 for a mitral valve leak.. Pt also has a PSHx of a CABG and 2 stent placements. Pt also has a PMHx of a blood clot in right leg that occurred in June 2018 (on coumadin) and COPD. Pt sees a cylinder block mechanic, Dr. Roman. - History of Current Complaint Chief Complaint: EDRespiratoryDistress Time Seen by Provider: 03/26/19 16:07 Hx Obtained From: Patient Onset/Duration: Sudden Onset, Still Present Current Severity: Moderate Aggravating Factors: Nothing Alleviating Factors: Other - NTG Associated Signs & Symptoms: Cough (Nonproductive), Chest Pain w/Cough - Allergy/Home Medications Allergies/Adverse Reactions: Allergies Allergy/AdvReac Type Severity Reaction Status Date / Time bupropion [From Wellbutrin] Allergy Edema Verified 03/26/19 16:14 lidocaine Allergy Unknown Verified 03/26/19 16:14 Reaction Details Penicillins Allergy Swelling Verified 03/26/19 16:14 Of Face,Lips,& Throat shellfish derived Allergy Edema Verified 03/26/19 16:14 silver sulfadiazine Allergy Edema Verified 03/26/19 16:14 [From Silvadene] Sulfa (Sulfonamide Allergy Unknown Verified 03/26/19 16:14 Antibiotics) Reaction Details Home Medications: Home Medications Albuterol 2.5MG/3ML (0.083%)* [Ventolin 2.5 MG/3 ML NEB.DARBY*] 2.5 mg INH Q6H PRN 03/26/19 [History Confirmed 03/26/19] Cilostazol TAB* [Pletal TAB*] 50 mg PO BID 03/26/19 [History Confirmed 03/26/19] Ferrous Sulfate [High Potency Iron] 27 mg PO DAILY 03/26/19 [History Confirmed 03/26/19] Melatonin 5 mg PO DAILY 03/26/19 [History Confirmed 03/26/19] Tiotropium Merrill [Spiriva Respimat] 4 gm INH BID 03/26/19 [History Confirmed 03/26/19] Umeclidinium 62.5 MDI(NF) [Incruse ELLIPTA MDI (NF)] 1 puff INH DAILY 03/26/19 [ History Confirmed 03/26/19] Warfarin TAB(*) [Coumadin TAB(*)] 4.5 mg PO DAILY 03/26/19 [History Confirmed ] rOPINIRole TAB* [Requip TAB*] 1 mg PO BEDTIME 03/26/19 [History Confirmed ] PMH/Surg Hx/FS Hx/Imm Hx Previously Healthy: Yes Endocrine/Hematology History: Reports: Hx Diabetes Cardiovascular History: Reports: Hx Angina, Hx Coronary Artery Disease, Hx Deep Vein Thrombosis, Hx Hypercholesterolemia, Hx Hypertension - CONTROLLED W/MEDS, Hx Myocardial Infarction Comment Only: Hx Congestive Heart Failure - [place] + TRIPLE [id number], Other Cardiovascular Problems/Disorders - TRIPLE BYPASS 2003 Respiratory History: Reports: Hx Asthma, Hx Chronic Obstructive Pulmonary Disease (COPD), Hx Sleep Apnea - CPAP AT NIGHT History: Denies: Hx Renal Disease Musculoskeletal History: Reports: Other Musculoskeletal History - left shoulder injury Sensory History: Reports: Hx Contacts or Glasses Denies: Hx Hearing Aid Opthamlomology History: Reports: Hx Contacts or Glasses Neurological History: Denies: Hx Migraine, Hx Seizures, Hx Transient Ischemic Attacks (TIA) Psychiatric History: Reports: Hx Anxiety - Cancer History Cancer Type, Location and Year: VULVA -2002, RECTAL CA-2009 Hx Chemotherapy: Yes - RECTAL CA Hx Radiation Therapy: Yes - RECTAL CANCER, 2010 - Surgical History Surgical History: Yes Surgery Procedure, Year, and Place: TRIPLE BYPASS, [id number], 3-C- SECTIONS, LEFT CARPAL TUNNEL-1999,. BLADDER SLING-2000, VULVA CANCER-2002, OOPHARECTOMY-2002, RECTAL CA-2009 W/RADIATION, AND CHEMO Infectious Disease History: No Infectious Disease History: Denies: Traveled Outside the [place] in Last 30 Days - Family History Known Family History: Positive: Other - Positive asthma and blood clots. Negative angioedema and aneurysm - Social History Lives: With Family Alcohol Use: None Hx Substance Use: No Substance Use Type: Reports: None Hx Tobacco Use: Yes Smoking Status (MU): Former Smoker Review of Systems Positive: Fatigue. Negative: Fever Positive: Chest Pain - Midsternal, radiates to right arm Positive: Shortness Of Breath, Cough Positive: Nausea Positive: Myalgia - Right arm, radiates from chest Neurological: Other - Positive lightheadedness and dizziness All Other Systems Reviewed And Are Negative: Yes Physical Exam - Summary Physical Exam Summary: Constitutional: Well-developed, Well-nourished, Alert. (-) Distressed Skin: Warm, Dry HENT: Normocephalic; Atraumatic Eyes: Conjunctiva normal Neck: Musculoskeletal ROM normal neck. (-) JVD, (-) Stridor, (-) Nuchal rigidity Cardio: Rhythm regular, rate normal, Heart sounds normal; Intact distal pulses; Radial pulses are 2+ and symmetric. Systolic murmur Pulmonary/Chest wall: Effort normal. (-) Wheezes, (-) Rales. Mild increased work breathing. Abd: Soft, (-) tenderness, (-) Distension, (-) Guarding, (-) Rebound Musculoskeletal: (-) Edema Lymph: (-) Cervical adenopathy Neuro: Alert, Oriented x3 Psych: Mood and affect Normal Triage Information Reviewed: Yes Vital Signs On Initial Exam: Initial Vitals Temp Pulse Resp BP Pulse Ox 97.8 F 75 20 128/70 89 03/26/19 15:54 03/26/19 15:54 03/26/19 15:54 03/26/19 15:54 03/26/19 15:54 Vital Signs Reviewed: Yes Procedures - Sedation Patient Received Moderate/Deep Sedation with Procedure: No Diagnostics - Vital Signs Vital Signs Temp Pulse Resp BP Pulse Ox 03/26/19 16:37 93 18 93 03/26/19 15:54 97.8 F 75 20 128/70 89 - Laboratory Result Diagrams: 03/26/19 16:41 03/26/19 16:41 Lab Statement: Any lab studies that have been ordered have been reviewed, and results considered in the medical decision making process. - Radiology Chest X-ray Radiology Interpretation Completed By: Radiologist Summary of Radiographic Findings: Chest X-ray IMPRESSION: No acute cardiopulmonary process by radiograph. Reviewed by ED physician. - EKG 16:19 Cardiac Rate: Other Rate - 88 BPM EKG Rhythm: Sinus Rhythm ST Segment: Normal Ectopy: None Summary of EKG Findings: EKG at 16:19 reveals sinus with PVCs with 88 BPM, no STEMI, RBBB, similar to prior in May 2018. Reviewed and interpreted by ED physician. 16:51 Cardiac Rate: Other Rate - 87 BPM EKG Rhythm: Sinus Rhythm ST Segment: Normal Ectopy: None Summary of EKG Findings: EKG at 16:51 reveals sinus with PVCs with 87 BPM, no STEMI, RBBB, similar to prior in May 2018. Reviewed by ED physician. Course/Dx - Course Course Of Treatment: 64 y/o F w hx COPD, CAD s/p stent x2, CABG p/w CP, SOB, near syncope. Chest Pain DDX: The patient is well appearing, with stable vitals. Given the patient's clinical presentation, highest on differential is ACS. trop elevated. Given aspirin, NTG. Will d/w cardiology. No new changes on EKG x2. Although less likely, differential also includes the following: -- Pneumothorax: Equal breath sounds, story inconsistent since gradual onset of symptoms. CXR shows no evidence of pneumothorax. Unlikely. --Cardiac tamponade : The history and physical are not concerning for tamponade. No Pulsus Paradoxus , no tachypnea. Unlikely. --Mediastinitis or esophageal rupture: The history is not consistent, as the patient has had no recent history of significant wretching, instrumentation, or mediastinal surgeries. Unlikely. --Aortic dissection: The patient does not describe the classical tearing chest pain radiating into the back, and the CXR does not show mediastinal widening or other signs of aortic dissection. Unlikely. --PE: Vitals wnl (not hypoxic, tachycardic or tachypneic). On coumadin. shortness of breath, given albuterol neb and steroids for COPD however suspect this is likely more secondary to her underlying ACS. CXR neg - Diagnoses Provider Diagnoses: Chest pain, Shortness of breath Discharge ED - Sign-Out/Discharge Documenting (check all that apply): Patient Departure - Admit - Discharge Plan Condition: Stable Disposition: ADMITTED TO [facility] - Billing Disposition and Condition Condition: STABLE Disposition: Admitted to [facility] - Attestation Statements Document Initiated by Carmen: Yes Documenting Scribe: Stephanie Hicks Provider For Whom Carmen is Documenting (Include Credential): Lindsay Turner MD Scribe Attestation: I, Stephanie Hicks, scribed for Lindsay Turner MD on 03/26/19 at 2323. Scribe Documentation Reviewed: Yes Provider Attestation: The documentation as recorded by the carmen, Stephanie Hicks accurately reflects the service I personally performed and the decisions made by me, Lindsay Turner MD Status of Scribe Document: Viewed Consult Consult: At 17:47, I spoke with Dr. Hill about elevated troponin; will look at EKG and call back. At 17:52, I spoke with Dr. Hill agrees no significant changes in EKG. At 18:48, I spoke with Dr. Hope who agrees to accept the pt with a diagnosis of CP and SOB.
--- OUTSIDE RECORDS SUMMARY | 2019-03-26 17:06 | XMS REPORT | Continuity of Care Document ---
:1955 External Reference #:[id number] Author Name Kim Sidhu M.D. (transmitted by agent of provider Kassi Dyson) Address [address] [place] [address] Problems Active Problems Provider Date Chronic obstructive lung disease Kim Sidhu M.D. Onset: 09/06/2010 Benign hypertensive heart disease without Kim Sidhu M.D. Onset: 09/06/2010 congestive heart failure Acute sinusitis Kim Sidhu M.D. Onset: 09/06/2010 Uric acid urolithiasis Kim Sidhu M.D. Onset: 01/01/2014 Social History Type Date Description Comments Sex Unknown Tobacco Use Start: Unknown Current Cigarette Smoker 1 1/2 Packs Daily Tobacco Use Start: Unknown End: Unknown Former Cigarette Smoker ETOH Use Denies alcohol use Tobacco Use Start: Unknown End: Unknown Patient is a former smoker Smoking Status Reviewed: 11/08/17 Patient is a former smoker Allergies, Adverse Reactions, Alerts Active Allergies Reaction Severity Comments Date PCN 05/15/2005 Wellbutrin 05/15/2005 Silvadene 07/16/2017 Medications Active Medications SIG Qnty Indications Ordering Date Provider Ciprofloxacin HCL 1 by mouth twice 30tabs J01.90 Kim Sidhu, 03/20/2019 500mg a day M.D. Tablets Glipizide/Metformin Take 1 Tablet 90tabs E11.9 Kim Sidhu, 09/30/2018 Hydrochloride Every Day M.D. 5-500mg Tablets Nitroglycerin Dissolve 1 Tab 25tabs Kim Sidhu, 09/12/2018 0.4mg Under Tongue as M.D. Tablets Sub Directed For Chest Pain. May Repeat 1 Every 5 Minutes Up To 3 Doses. If No Relief, Go To ER Buspirone HCL Take 1 Tablet 90tabs Kim Sidhu, 02/19/2018 15mg Three Times M.D. Tablets Daily Benzonatate 1 by mouth every 30caps J20.9 Kim Sidhu, 11/08/2017 100mg 8 hours as M.D. Capsules needed for cough Ventolin HFA 2 puff four 1units J44.9 Kim Sidhu, 10/04/2017 108(90Base) times a day as M.D. mcg/Act Aerosol needed Lancets 28G as directed for 100units Kim Sidhu, 11/03/2015 28G [facility] [place] [facility] fs testing a day M.D. dx e11.65 Accu-Chek Compact Plus as directed 1units Kim Sidhu, 10/28/2015 Care Kit M.D. Kit Accu-Chek Compact Plus as directed 1units E11.9 Kim Sidhu, 08/24/2014 Care Kit M.D. Kit Accu-Chek Compact as supplies 100units E11.9 Kim Sidhu, 08/24/2014 Strips M.D. Accu-Chek Fastclix as directed 100units E11.9 Kim Sidhu, 08/24/2014 Lancets M.D. Misc Simvastatin Take 1 Tablet 90tabs I25.9 Kim Sidhu, 05/05/2013 5mg Tablets Every Day M.D. Ropinirole HCL Take 1 tablet by 90tabs G25.81 Kim Sidhu, 12/25/2012 1mg mouth at M.D. Tablets bedtime. Albuterol Sulfate Use One Vial Via 120units J45.909 Kim Sidhu, 2012 Nebulizer 4 M.D. (2.5mg/3ML) 0.083% Times Daily For Nebulizer Shortness Of Breath Pantoprazole Sodium take 1 tablet by 90tabs K21.9 Kim Sidhu, 10/23/2012 40mg mouth every day M.D. Tablets DR Grier 1 po q 6 hrs 50caps 692.89 Kim Sidhu, 01/13/2009 25mg Capsules prn M.D. Warfarin Sodium 1 by mouth every Unknown 5mg day Tablets Oxymorphone HCL 1 tablet 3 times Unknown 5mg a day Tablets Multi For Her 50+ 1 by mouth every Unknown day Capsules Vitamin B-12 2 tablet by Unknown Natural mouth every day 500mcg Tablets Melatonin ER Unknown 3mg Tablets ER Nitrofurantoin 1 by mouth every Unknown Macrocrystal day 50mg Capsules Aspirin 1 by mouth every Unknown 81mg Tablets DR day Lasix 1 by mouth every Unknown 40mg Tablets day Carvedilol take one tablet Unknown 6.25mg Tablets by mouth twice a day Lisinopril 1 by mouth every Unknown 2.5mg Tablets day Hydroxyzine HCL take one tablet Unknown 25mg by mouth four Tablets times a day as needed Symbicort 2 puff twice a Unknown 80-4.5mcg/Act day Aerosol Megestrol Acetate 1 by mouth every Unknown 40mg day Tablets History Medications Fentanyl apply to skin 5units I73.9 Kim Sidhu, 11/05/2018 - 25mcg/HR Patches and change M.DSharon 02/06/2019 72HR every 72 hours Ciprofloxacin HCL 1 by mouth 30tabs N39.0 Kim Sidhu, 11/05/2018 - 500mg twice a day M.DSharon 02/06/2019 Tablets Medications Administered in Office Medication SIG Qnty Indications Ordering Provider Date H1N1 Administration-Use Kim Sidhu M.D. 07/12/2009 Injection Immunizations CPT Code Status Date Vaccine Lot # [id number] Given 03/20/2017 Influenza Virus (Afluria) Split Virus 3 Years Of Age And Older Q2037 Given 04/13/2016 Influenza Vaccine (Fluvirin) 4 Years Of Age Or [id number] Older Q2037 Given 04/06/2014 Influenza Vaccine (Fluvirin) 4 Years Of Age Or [id number] Older Q2038 Given 03/10/2013 Influenza Vaccine (Fluzone) Administered Age 3 [id number] And Older Q2037 Given 02/20/2012 Influenza Vaccine (Fluvirin) 4 Years Of Age Or [id number] Older Q2036 Given 03/13/2011 Flulaval [id number] 60206 Given 06/21/2010 [place] [address] Given 02/24/2010 Influenza Vaccine [id number] 79953 Given 02/26/2009 Influenza Vaccine [id number] 87590 Given 03/12/2008 Influenza Vaccine [id number] 13812 Given 04/02/2007 Influenza Vaccine [id number] 09917 Given 05/31/2006 Influenza Vaccine [id number] 37107 Given 05/17/2005 Influenza Vaccine [id number] 19326 Given 06/18/2003 Tetanus And Diptheria Toxiods Vital Signs Date Vital Result Comment 03/25/2019 12:02pm BP Systolic 121 mmHg BP Diastolic 73 mmHg Heart Rate 103 /min Height 64 inches 5'4" Weight 191.00 lb BMI (Body Mass Index) 32.8 kg/m2 O2 % BldC Oximetry 90 % 03/20/2019 10:54am BP Systolic 126 mmHg BP Diastolic 60 mmHg Heart Rate 88 /min Respiratory Rate 16 /min Height 64 inches 5'4" Weight 191.00 lb BMI (Body Mass Index) 32.8 kg/m2 O2 % BldC Oximetry 91 % Results Test Date Facility Test Result H/L Range Note Inr/Protime 03/18/2019 [facility] Inr 2.23 High 0.82-1.09 1 [address] [place] [address] [phone] CBC Auto 03/18/2019 [facility] White Blood 5.0 10^3/uL Normal 3.5-10.8 Diff [facility] [place] [address] [phone] Red Blood Count 4.46 10^6/uL Normal 3.70-4.87 Hemoglobin 13.9 g/dL Normal 12.0-16.0 Hematocrit 40 % Normal 35-47 Mean Corpuscular Volume 90 fL Normal 80-97 Mean Corpuscular Hemoglobin 31 pg Normal 27-31 Mean Corpuscular HGB Conc 35 g/dL Normal 31-36 Red Cell Distribution Width 16 % High 10-15 Platelet Count 170 10^3/uL Normal 150-450 Mean Platelet Volume 7.8 fL Normal 7.4-10.4 Abs Neutrophils 2.9 10^3/uL Normal 1.5-7.7 Abs Lymphocytes 1.3 10^3/uL Normal 1.0-4.8 Abs Monocytes 0.6 10^3/uL Normal 0-0.8 Abs Eosinophils 0.1 10^3/uL Normal 0-0.6 Abs Basophils 0.0 10^3/uL Normal 0-0.2 Abs Nucleated RBC 0.0 10^3/uL Granulocyte % 59.0 % Lymphocyte % 26.7 % Monocyte % 11.7 % Eosinophil % 1.6 % Basophil % 1.0 % Nucleated Red Blood Cells % 0.2 Basic Metabolic 03/18/2019 [facility] Sodium 141 mmol/L Normal 135-145 Panel [address] [place] [address] [phone] Potassium 5.0 mmol/L Normal 3.5-5.0 Chloride 106 mmol/L Normal 101-111 Co2 Carbon Dioxide 29 mmol/L Normal 22-32 Anion Gap 6 mmol/L Normal 2-11 Glucose 108 mg/dL High 70-100 Blood Urea Nitrogen 18 mg/dL Normal 6-24 Creatinine 0.94 mg/dL Normal 0.51-0.95 BUN/Creatinine Ratio 19.1 Normal 8-20 Calcium 9.4 mg/dL Normal 8.6-10.3 Egfr Non- 60.1 >60 Egfr 72.8 >60 2 Urinalysis Profile 03/18/2019 [facility] Urine Color Yellow [address] [place], [place] [id number] [phone] Urine Appearance Cloudy Urine Specific [place] 1.024 Normal 1.010-1.030 Urine pH 5.0 Normal 5-9 Urine Urobilinogen Negative Negative Urine Ketones Negative Negative Urine Protein Negative Negative Urine Leukocytes 1+ Abnormal Negative Urine Blood Negative Negative * * Abnormal Negative 3 Urine Nitrite Positive Abnormal Negative Urine Bilirubin Negative Negative Urine Glucose Negative Negative Urine White Blood Cell 2+(11-20/hpf) Abnormal Absent Urine Red Blood Cell Trace(0-2/hpf) Absent Urine Bacteria 2+ Abnormal Absent Urine Squamous Epithelial Cell Present Abnormal Absent Urine Culture 03/18/2019 [facility] Urine Culture SEE [address] [place] [address] BELOW [phone] Inr/Protime 12/30/2018 [facility] Inr 2.23 High 0.82-1.[address] [place] [address] [phone] Laboratory 11/03/2018 [facility] Occult NEGATIVE Negative 6, test finding [address] Blood,Stool 7 [place], [place] [id number] [phone] Klebsiella 11/03/2018 [facility] Nitrofurantoin 256 Resistant Pneumoniae [address] [place] [address] [phone] Trimethoprim/Sulfamethoxazole <=20 Susceptible Ampicillin >=32 Resistant Cefazolin <=4 Susceptible Ampicillin/Sulbactam 16 Intermediate Ciprofloxacin <=0.25 Susceptible Piperacillin/Tazobactam 16 Susceptible Ceftazidime <=1 Susceptible Ceftriaxone <=1 Susceptible Cefepime <=1 Susceptible Levofloxacin 1 Susceptible Imipenem <=0.25 Susceptible Gentamicin <=1 Susceptible Tobramycin <=1 Susceptible Urine Culture 11/03/2018 [facility] Urine Culture KLEBSIELLA Abnormal [address] PNEUM <[place] [address] NOTE> [phone] Quantity > 100,000 CFU/mL 9 Urine Culture URETHRAL BOBBY Quantity 10,000 - 50,000 <SEE NOTE> 10 Urinalysis With 11/03/2018 [facility] Urine Color YELLOW Yellow Microscopic [address] [place] [address] [phone] Urine Clarity CLEAR Clear Urine Glucose - Dipstick NEGATIVE mg/dL Negative Urine Bilirubin - Dipstick NEGATIVE Negative Urine Ketone NEGATIVE mg/dL Negative Urine Specific [place] 1.010 Normal 1.010-1.030 Urine Blood NEGATIVE Negative Urine PH 7.0 Normal 6.5-7.5 Urine Protein - Dipstick NEGATIVE mg/dL Negative Urine Urobilinogen - Dipstick 0.2 E.U./dL Normal 0.2-1.0 Urine Nitrite - Dipstick NEGATIVE Negative Urine Leuk Esterase SMALL Abnormal Negative Urine RBC NONE SEEN rbc/hpf 0-2 Urine WBC 2-5 wbc/hpf 0-7 Urine Epithelial Cells FEW /lpf None Seen Urine Bacteria MANY Abnormal None Seen Source: URINE, CLEAN CAT <SEE NOTE> 11 Laboratory 11/03/2018 [facility] Sedimentation 5 mm/ hr Normal 2-45 12 test finding [address] [place] [address] [phone] CBS 11/03/2018 [facility] White Blood Count 6.7 K/uL Normal 3.1-10. W/Automated [address] [place] [address] [phone] Red Blood Count 4.19 M/uL Normal 3.90-5.40 Hemoglobin 13.0 gm/dL Normal 11.6-15.8 Hematocrit 37.8 % Normal 36.0-46.1 Mean Cell Volume 90.2 fl Normal 80.9-99.0 Mean Corpuscular HGB 31.0 pg Normal 25.9-32.7 Mean Corpuscular HGB Conc 34.4 g/dL High 30.8-34.3 Platelet Count 196 K/uL Normal 155-360 Red Cell Distri Width SD 53.3 fl High 36-47 Red Cell Distri Width %CV 16.6 % High 11.7-14.4 Mean Platelet Volume 10.0 fl Normal 8.9-12.4 Neut% 66.1 % Normal 40.4-72.8 Lymph % 21.4 % Normal 20.0-42.0 Cook % 9.1 % Normal 4.3-13.2 Eo% 2.2 % Normal 0.0-6.6 Bas% 0.9 % Normal 0.0-1.1 Immature Grans 0.3 % Normal 0.0-5.0 NRBC % 0.0 /100WBC < 10/ 100 WBC Neut# 4.41 K/uL Normal 1.8-7.0 Lymph # 1.43 K/uL Normal 1.0-4.0 Cook # 0.61 K/uL Normal 0.3-0.9 Eos # 0.15 K/uL Normal 0.0-0.5 Baso # 0.06 K/uL Normal 0.0-0.1 Immature Grans Absolute 0.02 K/uL NRBC # 0.00 K/uL Laboratory test 11/03/2018 [facility] C-Reactive 6.8 mg/L High <3.[address] Protein,[place] [address] [phone] Comprehensive 11/03/2018 [facility] Glucose 61 mg/dL Low 74-106 Metabolic Panel [address] [place] [address] [phone] BUN 14 mg/dL Normal 7-18 Creatinine 0.8 mg/dL Normal 0.6-1.3 Glom Filtration Rate, Estimate >60 mL/min >60 If >60 mL/min >60 13 BUN/Creat 17.5 ratio Sodium 139 mmol/L Normal 136-145 Potassium 4.2 mmol/L Normal 3.5-5.1 Chloride 106 mmol/L Normal 98-107 Carbon Dioxide 25 mmol/L Normal 21-32 Anion Gap 8 mEq/L Normal 8-16 Calcium 9.3 mg/dL Normal 8.5-10.1 Total Protein 7.7 g/dL Normal 6.4-8.2 Albumin 4.1 g/dL Normal 3.4-5.0 Globulin 3.6 g/dL Normal 1.9-4.3 Alb/Glob 1.1 ratio Bilirubin,Total 0.6 mg/dL Normal 0.2-1.0 Sgot/Ast 66 U/L High 15-37 SGPT/Alt 33 U/L Normal 12-78 Alkaline Phosphatase 87 U/L Normal 45-117 Laboratory test 10/21/2018 [facility] Hemoglobin A1c 6.0 % High 4.0-5.6 [address] (Glyco HGB) [place] [address] [phone] Basic Metabolic 10/21/2018 [facility] Sodium 140 Normal 135- [address] mmol/[place] [address] [phone] Potassium 4.8 mmol/L Normal 3.5-5.0 Chloride 103 mmol/L Normal 101-111 Co2 Carbon Dioxide 30 mmol/L Normal 22-32 Anion Gap 7 mmol/L Normal 2-11 Glucose 123 mg/dL High 70-100 Blood Urea Nitrogen 15 mg/dL Normal 6-24 Creatinine 0.84 mg/dL Normal 0.51-0.95 BUN/Creatinine Ratio 17.9 Normal 8-20 Calcium 9.7 mg/dL Normal 8.6-10.3 Egfr Non- 68.7 >60 Egfr 83.1 >60 15 Basic Metabolic 10/08/2018 [facility] Sodium 140 mmol/L Normal 135-[address] [place] [address] [phone] Potassium 4.8 mmol/L Normal 3.5-5.0 Chloride 103 mmol/L Normal 101-111 Co2 Carbon Dioxide 28 mmol/L Normal 22-32 Anion Gap 9 mmol/L Normal 2-11 Glucose 103 mg/dL High 70-100 Blood Urea Nitrogen 14 mg/dL Normal 6-24 Creatinine 0.87 mg/dL Normal 0.51-0.95 BUN/Creatinine Ratio 16.1 Normal 8-20 Calcium 9.4 mg/dL Normal 8.6-10.3 Egfr Non- 66.0 >60 Egfr 79.8 >60 16 Laboratory test 10/08/2018 [facility] Hemoglobin A1c 6.1 % High 4.0-5.6 17 finding [address] (Glyco HGB) [place] [address] [phone] 1 Standard intensity warfarin therapeutic range: 2.0-3.0 High intensity warfarin therapeutic range: 2.5-3.5 2 Because ethnic data is not always readily available, this report includes an eGFR for both -Americans and non- Americans. The National Kidney Disease Education Program (NKDEP) does not endorse the use of the MDRD equation for patients that are not between the ages of 18 and 70, are , have extremes of body size, muscle mass, or nutritional status, or are non- or non-. According to the National Kidney Foundation, irrespective of diagnosis, the stage of the disease is based on the level of kidney function: Stage Description GFR(mL/min/1.73 m(2)) 1 Kidney damage with normal or decreased GFR 90 2 Kidney damage with mild decrease in GFR 60-89 3 Moderate decrease in GFR 30-59 4 Severe decrease in GFR 15-29 5 Kidney failure <15 (or dialysis) 3 *Ascorbic acid is present which may interfere with detection of blood. 4 SEE RESULT BELOW Name: KEILA BACA : [address]: Kim Sidhu MD Acct: [id number] Unit: [id number] AGE: 64 Location: [facility] Re03/18/19 SEX: F Status: REG REF SPEC: [id number] OFELIA: 03/18/[address]: Nina Devine MD REQ: [id number] RECD: 03/18/19 STATUS: CAMI URBINA DR: Kim Sidhu MD _ SOURCE: URINE SPDESC: ORDERED: Urine Culture COMMENTS: PT OBTAINED BY CATHETERIZATION QUERIES: Urine Source: Catheterization Procedure Result Reported Site Urine Culture Final 03/19/19- 1122 ML No Growth (<1,000 CFU/mL) * ML - Main Lab . END OF REPORT DEPARTMENT OF PATHOLOGY, [address] [place] [address] Janes Oh M.D. Director [facility] # [id number] 5 Standard intensity warfarin therapeutic range: 2.0-3.0 High intensity warfarin therapeutic range: 2.5-3.5 6 BOTH LEGS HURT, HX BLOOD CLOT 7 Method: Shira Mayda Hemoccult Card 8 KLEBSIELLA PNEUMONIAE 9 > 100,000 CFU/mL 10 10,000 - 50,000 CFU/mL 11 URINE, CLEAN CATCH 12 This result was obtained with an ESR method that is not based on the standard Westergren Method. When comparing results obtained from the traditional Westergren ESR and this method it is important to refer to the reference range for each method. Method: Capillary Photometry 13 Note: Persistent reduction for 3 months or more in an eGFR <60 mL/min/1.73 m2 defines CKD. Patients with eGFR values >/=60 mL/min/1.73 m2 may also have CKD if evidence of persistent proteinuria is present. The original MDRD equation for estimated GFR is not valid for patients less than 18 years of age. Additional information may be found at www.kdoqi.org. 14 Therapeutic target for the treatment of diabetes mellitus patients is <7% HBA1C, and in selective patients <6.0%. Please refer to [employer] diabetic care guidelines for further information. 15 Because ethnic data is not always readily available, this report includes an eGFR for both -Americans and non- Americans. The National Kidney Disease Education Program (NKDEP) does not endorse the use of the MDRD equation for patients that are not between the ages of 18 and 70, are , have extremes of body size, muscle mass, or nutritional status, or are non- or non-. According to the National Kidney Foundation, irrespective of diagnosis, the stage of the disease is based on the level of kidney function: Stage Description GFR(mL/min/1.73 m(2)) 1 Kidney damage with normal or decreased GFR 90 2 Kidney damage with mild decrease in GFR 60-89 3 Moderate decrease in GFR 30-59 4 Severe decrease in GFR 15-29 5 Kidney failure <15 (or dialysis) 16 Because ethnic data is not always readily available, this report includes an eGFR for both -Americans and non- Americans. The National Kidney Disease Education Program (NKDEP) does not endorse the use of the MDRD equation for patients that are not between the ages of 18 and 70, are , have extremes of body size, muscle mass, or nutritional status, or are non- or non-. According to the National Kidney Foundation, irrespective of diagnosis, the stage of the disease is based on the level of kidney function: Stage Description GFR(mL/min/1.73 m(2)) 1 Kidney damage with normal or decreased GFR 90 2 Kidney damage with mild decrease in GFR 60-89 3 Moderate decrease in GFR 30-59 4 Severe decrease in GFR 15-29 5 Kidney failure <15 (or dialysis) 17 Therapeutic target for the treatment of diabetes mellitus patients is <7% HBA1C, and in selective patients <6.0%. Please refer to [employer] diabetic care guidelines for further information. Procedures Date Code Description Status 03/18/2019 50392 EKG-Tracing & Report Completed 03/17/2016 [id number] Colonoscopy Completed 05/27/2015 [id number] Bone Mineral Density Test Completed 05/09/2013 [id number] Mammogram Completed Medical Devices Description No Information Available Encounters Type Date Location Provider Dx Diagnosis Office Visit 03/20/2019 Main Office Kim Sidhu M.D. J01.90 Acute sinusitis, 11:00a unspecified Office Visit 02/06/2019 Main Office Kim Sidhu M.D. 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 disease, unspecified J44.9 Chronic obstructive pulmonary disease, unspecified I25.10 Athscl heart disease of [place] coronary artery w/o ang pctrs L03.115 Cellulitis of right lower limb Office Visit 12/30/2018 2:45p Main Office Kim Sidhu I73.9 Peripheral vascular M.D. disease, unspecified I25.10 Athscl heart disease of [place] coronary artery w/o ang pctrs J44.9 Chronic obstructive pulmonary disease, unspecified L03.115 Cellulitis of right lower limb E11.9 Type 2 diabetes mellitus without complications Office Visit 11/05/2018 3:15p Main Office Kim Sidhu I73.9 Peripheral vascular M.D. disease, unspecified N39.0 Urinary tract infection, site not specified Office Visit 09/30/2018 1:30p Main Office Kim Sidhu M.D. I25.10 Athscl heart disease of [place] coronary artery w/o ang pctrs E11.9 Type 2 diabetes mellitus without complications J44.9 Chronic obstructive pulmonary disease, unspecified Assessments Date Code Description Provider 03/20/2019 J01.90 Acute sinusitis, unspecified Kim Sidhu M.D. 03/18/2019 E78.2 Mixed hyperlipidemia Kim Sidhu M.D. 02/06/2019 H66.92 Otitis media, unspecified, left ear Kim Sidhu M.D. 02/06/2019 I95.1 Orthostatic hypotension Kim Sidhu M.D. 02/06/2019 Z79.01 care home (current) use of anticoagulants Kim Sidhu M.D. 01/07/2019 I73.9 Peripheral vascular disease, unspecified Kim Sidhu M.D. 01/07/2019 J44.9 Chronic obstructive pulmonary disease, Kim Sidhu M.D. 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 12/30/2018 I73.9 Peripheral vascular disease, unspecified Kim Sidhu M.D. 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 unspecified 12/30/2018 L03.115 Cellulitis of right lower limb Kim Sidhu M.D. 12/30/2018 E11.9 Type 2 diabetes mellitus without complications Kim Sidhu M.D. 11/05/2018 I73.9 Peripheral vascular disease, unspecbarbie Sidhu M.D. 11/05/2018 N39.0 Urinary tract infection, site not specified Kim Sidhu M.D. 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 09/30/2018 J44.9 Chronic obstructive pulmonary disease, Kim Sidhu M.D. unspecified Plan of Treatment Future Appointment(s):05/26/2019 12:00 pm - Kim Sidhu M.D. at Main Office Functional Status Description No Information Available Mental Status Description No Information Available Referrals Description No Information Available
--- OUTSIDE RECORDS SUMMARY | 2019-03-26 17:06 | XMS REPORT | Continuity of Care Document ---
:1955 External Reference #:[id number] Author Name Kim Sidhu M.D. (transmitted by agent of provider Alondra Gutierrez) Address [address] [place] [address] Problems Active Problems Provider Date Chronic obstructive [...] HFA 2 puff four 1units J44.9 Kim iSdhu, 10/04/2017 108(90Base) times a day as M.D. mcg/Act Aerosol needed Lancets 28G as directed for 100units Kim Sidhu, 11/03/2015 28G [facility] [place] M.D. dx e11.65 [...] Vaccine (Fluvirin) 4 Years Of Age Or [id number] Older Q2037 Given 04/06/2014 Influenza Vaccine (Fluvirin) 4 Years Of Age Or [id number] Older Q2038 Given 03/10/2013 Influenza Vaccine (Fluzone) Administered Age 4 [id number] And Older Q2037 Given 02/20/2012 Influenza Vaccine (Fluvirin) 4 Years Of Age Or [id number] Older Q2036 Given 03/13/2011 Flulaval [id number] 76260 Given 06/21/2010 [place] [address] Given 02/24/2010 Influenza Vaccine [id number] 58935 Given 02/26/2009 Influenza Vaccine [id number] 76119 Given 03/12/2008 Influenza Vaccine 40384 77985 Given 04/02/2007 Influenza Vaccine 87980 26007 Given 05/31/2006 Influenza Vaccine 30564 06084 Given 05/17/2005 Influenza Vaccine [id number] 94460 Given 06/18/2003 Tetanus And Diptheria Toxiods Vital [...] Test Result H/L Range Note Inr/Protime 03/18/2019 [facility] Inr 2.23 High 0.82-1.09 1 [address] [place] [address] [phone] CBC Auto 03/18/2019 [facility] White Blood 5.0 10^3/uL Normal 3.5-10.8 Diff [facility] [place] [address] [phone] Red Blood Count 4.46 10^6/uL Normal 3.70-4.87 [...] Blood Cells % 0.2 Basic Metabolic 03/18/2019 [facility] Sodium 141 mmol/L Normal 135-145 Panel [address] [place] [address] [phone] Potassium 5.0 mmol/L Normal 3.5-5.0 Chloride 106 mmol/L Normal 101-111 Co2 Carbon Dioxide 29 mmol/L Normal 22-32 Anion Gap 6 mmol/L Normal 2-11 Glucose 108 mg/dL High 70-100 Blood Urea Nitrogen 18 mg/dL Normal 6-24 Creatinine 0.94 mg/dL Normal 0.51-0.95 BUN/Creatinine Ratio 19.1 Normal 8-20 Calcium 9.4 mg/dL Normal 8.6-10.3 Egfr Non- 60.1 >60 Egfr 72.8 >60 2 Urinalysis Profile 03/18/2019 [facility] Urine Color Yellow [address] [employer] [place], [place] [id number] [phone] Urine Appearance Cloudy Urine Specific [place] 1.024 Normal 1.010-1.030 Urine pH 5.0 Normal [...] Cell Present Abnormal Absent Urine Culture 03/18/2019 [facility] Urine Culture SEE [address] [place] [address] BELOW [phone] Inr/Protime 12/30/2018 [facility] Inr 2.23 High 0.82-1.[address] [place] [address] [phone] Laboratory 11/03/2018 [facility] Occult NEGATIVE Negative 6, test finding [address] Blood,Stool 7 [place], [place] [address] [phone] Klebsiella 11/03/2018 [facility] Nitrofurantoin 256 Resistant Pneumoniae [address] [place] [address] [phone] Trimethoprim/Sulfamethoxazole <=20 Susceptible Ampicillin >=32 Resistant Cefazolin <=4 Susceptible Ampicillin/Sulbactam 16 Intermediate Ciprofloxacin <=0.25 Susceptible Piperacillin/Tazobactam 16 Susceptible Ceftazidime <=1 Susceptible Ceftriaxone <=1 Susceptible Cefepime <=1 Susceptible Levofloxacin 1 Susceptible Imipenem <=0.25 Susceptible Gentamicin <=1 Susceptible Tobramycin <=1 Susceptible Urine Culture 11/03/2018 [facility] Urine Culture KLEBSIELLA Abnormal [address] PNEUM <[place] [address] NOTE> [phone] Quantity > 100,000 CFU/mL 9 Urine Culture URETHRAL BOBBY Quantity 10,000 - 50,000 <SEE NOTE> 10 Urinalysis With 11/03/2018 [facility] Urine Color YELLOW Yellow Microscopic [address] [place] [address] [phone] Urine Clarity CLEAR Clear Urine Glucose - Dipstick NEGATIVE mg/dL Negative Urine Bilirubin - Dipstick NEGATIVE Negative Urine Ketone NEGATIVE mg/dL Negative Urine Specific [place] 1.010 Normal 1.010-1.030 Urine Blood NEGATIVE Negative [...] CLEAN CAT <SEE NOTE> 11 Laboratory 11/03/2018 [facility] Sedimentation 5 mm/ hr Normal 2-45 12 test finding [address] [place] [address] [phone] CBS 11/03/2018 [facility] White Blood Count 6.7 K/uL Normal 3.1-10. W/Automated [address] 7 [place] [address] [phone] Red Blood Count 4.19 M/uL Normal 3.90-5.40 [...] 40.4-72.8 Lymph % 21.4 % Normal 20.0-42.0 [place] % 9.1 % Normal 4.3-13.2 Eo% 2.2 % Normal 0.0-6.6 Bas% 0.9 % Normal 0.0-1.1 Immature Grans 0.3 % Normal 0.0-5.0 NRBC % 0.0 /100WBC < 10/ 100 WBC Neut# 4.41 K/uL Normal 1.8-7.0 Lymph # 1.43 K/uL Normal 1.0-4.0 [place] # 0.61 K/uL Normal 0.3-0.9 Eos # 0.15 K/uL Normal 0.0-0.5 Baso # 0.06 K/uL Normal 0.0-0.1 Immature Grans Absolute 0.02 K/uL NRBC # 0.00 K/uL Laboratory test 11/03/2018 [facility] C-Reactive 6.8 mg/L High <3.[address] Protein,[place] [address] [phone] Comprehensive 11/03/2018 [facility] Glucose 61 mg/dL Low 74-106 Metabolic Panel [address] [place] [address] [phone] BUN 14 mg/dL Normal 7-18 Creatinine 0.8 [...] 87 U/L Normal 45-117 Laboratory test 10/21/2018 [facility] Hemoglobin A1c 6.0 % High 4.0-5.[address] (Glyco HGB) [place] [address] [phone] Basic Metabolic 10/21/2018 [facility] Sodium 140 Normal 135- [address] mmol/[place] [address] [phone] Potassium 4.8 mmol/L Normal 3.5-5.0 Chloride 103 mmol/L Normal 101-111 Co2 Carbon Dioxide 30 mmol/L Normal 22-32 Anion Gap 7 mmol/L Normal 2-11 Glucose 123 mg/dL High 70-100 Blood Urea Nitrogen 15 mg/dL Normal 6-24 Creatinine 0.84 mg/dL Normal 0.51-0.95 BUN/Creatinine Ratio 17.9 Normal 8-20 Calcium 9.7 mg/dL Normal 8.6-10.3 Egfr Non- 68.7 >60 Egfr 83.1 >60 15 Basic Metabolic 10/08/2018 [facility] Sodium 140 mmol/L Normal 135-[address] [place] [address] [phone] Potassium 4.8 mmol/L Normal 3.5-5.0 Chloride 103 mmol/L Normal 101-111 Co2 Carbon Dioxide 28 mmol/L Normal 22-32 Anion Gap 9 mmol/L Normal 2-11 Glucose 103 mg/dL High 70-100 Blood Urea Nitrogen 14 mg/dL Normal 6-24 Creatinine 0.87 mg/dL Normal 0.51-0.95 BUN/Creatinine Ratio 16.1 Normal 8-20 Calcium 9.4 mg/dL Normal 8.6-10.3 Egfr Non- 66.0 >60 Egfr 79.8 >60 16 Laboratory test 10/08/2018 [facility] Hemoglobin A1c 6.1 % High 4.0-5.6 [address] (Glyco [place]GB) [place] [address] [phone] 1 Standard intensity warfarin therapeutic range: 2.0-3.0 [...] [address]: Kim Sidhu MD Acct: [id number] Unit: [id number] AGE: 64 Location: [facility] Re03/18/19 SEX: F Status: REG REF SPEC: [id number] OFELIA: 03/18/[address]: Nina Devine MD REQ: [id number] RECD: 03/18/19 STATUS: CAMI URBINA DR: Kim Sidhu MD _ SOURCE: URINE SPDESC: ORDERED: Urine Culture COMMENTS: PT OBTAINED BY CATHETERIZATION QUERIES: Urine Source: Catheterization Procedure Result Reported Site Urine Culture Final 03/19/19- 1122 ML No Growth (<1,000 CFU/mL) * ML - Main Lab . END OF REPORT DEPARTMENT OF PATHOLOGY, [address] [place] [address] Janes Oh M.D. Director [facility] # [id number] 5 Standard intensity warfarin therapeutic range: 2.0-3.0 High intensity warfarin therapeutic range: 2.5-3.5 6 BOTH LEGS HURT, HX BLOOD CLOT 7 Method: Shira Charlotte Hemoccult Card 8 KLEBSIELLA PNEUMONIAE 9 > [...] in selective patients <6.0%. Please refer to [place] [employer] diabetic care guidelines for further [...] in selective patients <6.0%. Please refer to [place] [employer] diabetic care guidelines for further information. Procedures Date Code Description Status 03/18/2019 58820 EKG-Tracing & Report Completed 03/17/2016 [id number] Colonoscopy Completed 05/27/2015 [id number] Bone Mineral Density Test Completed 05/09/2013 [id number] Mammogram Completed Medical Devices Description No Information Available Encounters Type Date Location Provider Dx Diagnosis Office Visit 03/20/2019 Main Office Kim Sidhu M.D. J01.90 Acute sinusitis, 11:00a unspecified Office Visit 02/06/2019 Main Office iKm Sidhu M.D. H66.92 Otitis media, 10:30a unspecified, left ear I95.1 Orthostatic hypotension Z79.01 FDC (current) use of anticoagulants Office Visit 01/07/2019 10:30a Main Office Kim Sidhu I73.9 Peripheral vascular M.D. disease, unspecified J44.9 Chronic obstructive pulmonary disease, unspecified I25.10 Athscl heart disease of [place] coronary artery w/o ang pctrs L03.115 Cellulitis of right lower limb Office Visit 12/30/2018 2:45p Main Office Kim Sidhu I73.9 Peripheral vascular M.D. disease, unspecified I25.10 Athscl heart disease of [place] coronary artery w/o ang pctrs J44.9 Chronic obstructive pulmonary disease, unspecified L03.115 Cellulitis of right lower limb E11.9 Type 2 diabetes mellitus without complications Office Visit 11/05/2018 3:15p Main Office Kim Sidhu I73.9 Peripheral vascular M.D. disease, unspecified N39.0 Urinary tract infection, site not specified Office Visit 09/30/2018 1:30p Main Office Kim Sidhu M.D. I25.10 Athscl heart disease of [place] coronary artery w/o ang pctrs E11.9 Type 2 diabetes mellitus without complications J44.9 Chronic obstructive pulmonary disease, unspecified Assessments Date Code Description Provider 03/20/2019 J01.90 Acute sinusitis, unspecified Kim Sidhu M.D. 03/18/2019 E78.2 Mixed hyperlipidemia Kim Sidhu M.D. 02/06/2019 H66.92 Otitis media, unspecified, left ear Kim Sidhu M.D. 02/06/2019 I95.1 Orthostatic hypotension Kim Sidhu M.D. 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 01/07/2019 I73.9 Peripheral vascular disease, unspecified Kim Sidhu M.D. 01/07/2019 J44.9 Chronic obstructive pulmonary disease, Kim Sidhu M.D. 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 12/30/2018 I73.9 Peripheral vascular disease, unspecified Kim Sidhu M.D. 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 artery without angina [...] M.D. 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 09/30/2018 J44.9 Chronic obstructive pulmonary disease, Kim Sidhu M.D. unspecified Plan of Treatment 02/06/2019 - Kim Sidhu M.D.H66.92 Otitis media, unspecified, left earComments :gentle irrigation with normal saline, continue baby oil. stop azithromycin after last dose. continue follow up with Dr Morales95.1 Orthostatic hypotensionComments:suspect mild dehydration as cause of syncope 01/31, encouraged kddgtxM64.01 FDC (current) use of anticoagulantsComments:may liberlize diet for next few days to include vitamin K rich foodsFollow up: Followup:. (Follow up) Functional Status Description No Information Available Mental Status Description No Information Available Referrals Description No Information Available
--- OUTSIDE RECORDS SUMMARY | 2019-03-26 17:07 | XMS REPORT | Continuity of Care Document ---
:1955 External Reference #:[id number] Author Name Kim Sidhu M.D. (transmitted by agent of provider Kassi Dyson) Address [address] [place] [address] Problems Active Problems Provider Date Chronic obstructive [...] directed for 100units Kim Sidhu, 11/03/2015 28G [facility] [place] a [place] M.D. dx e11.65 [...] Vaccine (Fluvirin) 4 Years Of Age Or [id number] Older Q2037 Given 04/06/2014 Influenza Vaccine (Fluvirin) 4 Years Of Age Or [id number] Older Q2038 Given 03/10/2013 Influenza Vaccine (Fluzone) Administered Age 4 [id number] And Older Q2037 Given 02/20/2012 Influenza Vaccine (Fluvirin) 4 Years Of Age Or [id number] Older Q2036 Given 03/13/2011 Flulaval [id number] 96061 Given 06/21/2010 [place] [address] Given 02/24/2010 Influenza Vaccine [id number] 09006 Given 02/26/2009 Influenza Vaccine [id number] 39306 Given 03/12/2008 Influenza Vaccine 06775 55335 Given 04/02/2007 Influenza Vaccine 28779 32201 Given 05/31/2006 Influenza Vaccine 08285 22134 Given 05/17/2005 Influenza Vaccine [id number] 91005 Given 06/18/2003 Tetanus And Diptheria Toxiods Vital Signs Date Vital Result Comment 03/20/2019 10:54am BP Systolic 126 mmHg BP Diastolic 60 mmHg Heart Rate 88 /min Respiratory Rate 16 /min Height 64 inches 5'4" Weight 191.00 lb BMI (Body Mass Index) 32.8 kg/m2 O2 % BldC Oximetry 91 % 02/06/2019 10:34am BP Systolic 140 mmHg BP Diastolic 70 mmHg Heart Rate 80 /min Height 64 inches 5'4" O2 % BldC Oximetry 93 % Results Test Date Facility Test Result H/L Range Note Inr/Protime 03/18/2019 [facility] Inr 2.23 High 0.82-1.09 1 [address] [place] [address] [phone] CBC Auto 03/18/2019 [facility] White Blood 5.0 10^3/uL Normal 3.5-10.8 Diff [address] [place] [address] [phone] Red Blood Count 4.46 10^6/uL Normal 3.70-4.87 [...] Blood Cells % 0.2 Basic Metabolic 03/18/2019 [facility] Sodium 141 mmol/L Normal 135-[address] [place] [address] [phone] Potassium 5.0 mmol/L Normal 3.5-5.0 Chloride 106 mmol/L Normal 101-111 Co2 Carbon Dioxide 29 mmol/L Normal 22-32 Anion Gap 6 mmol/L Normal 2-11 Glucose 108 mg/dL High 70-100 Blood Urea Nitrogen 18 mg/dL Normal 6-24 Creatinine 0.94 mg/dL Normal 0.51-0.95 BUN/Creatinine Ratio 19.1 Normal 8-20 Calcium 9.4 mg/dL Normal 8.6-10.3 Egfr Non- 60.1 >60 Egfr 72.8 >60 2 Urinalysis Profile 03/18/2019 [facility] Urine Color Yellow [address] [place], [place] [address] [phone] Urine Appearance Cloudy Urine Specific [place] 1.024 Normal 1.010-1.030 Urine pH 5.0 Normal [...] Cell Present Abnormal Absent Urine Culture 03/18/2019 [facility] Urine Culture SEE 4 And [address] [place] [address] BELOW [phone] Inr/Protime 12/30/2018 [facility] Inr 2.23 High 0.82-1.[address] [place] [address] [phone] Laboratory 11/03/2018 [facility] Occult NEGATIVE Negative 6, test finding [address] Blood,Stool 7 [place], [place] [address] [phone] Klebsiella 11/03/2018 [facility] Nitrofurantoin 256 Resistant Pneumoniae [address] [place] [address] [phone] Trimethoprim/Sulfamethoxazole <=20 Susceptible Ampicillin >=32 Resistant Cefazolin <=4 Susceptible Ampicillin/Sulbactam 16 Intermediate Ciprofloxacin <=0.25 Susceptible Piperacillin/Tazobactam 16 Susceptible Ceftazidime <=1 Susceptible Ceftriaxone <=1 Susceptible Cefepime <=1 Susceptible Levofloxacin 1 Susceptible Imipenem <=0.25 Susceptible Gentamicin <=1 Susceptible Tobramycin <=1 Susceptible Urine Culture 11/03/2018 [facility] Urine Culture KLEBSIELLA Abnormal [address] PNEUM <[place] [address] NOTE> [phone] Quantity > 100,000 CFU/mL 9 Urine Culture URETHRAL BOBBY Quantity 10,000 - 50,000 <SEE NOTE> 10 Urinalysis With 11/03/2018 [facility] Urine Color YELLOW Yellow Microscopic [address] [place] [address] [phone] Urine Clarity CLEAR Clear Urine Glucose - Dipstick NEGATIVE mg/dL Negative Urine Bilirubin - Dipstick NEGATIVE Negative Urine Ketone NEGATIVE mg/dL Negative Urine Specific [place] 1.010 Normal 1.010-1.030 Urine Blood NEGATIVE Negative [...] CLEAN CAT <SEE NOTE> 11 Laboratory 11/03/2018 [facility] Sedimentation 5 mm/ hr Normal 2-45 12 test finding [address] [place] [address] [phone] CBS 11/03/2018 [facility] White Blood Count 6.7 K/uL Normal 3.1-10. W/Automated [address] [place] [address] [phone] Red Blood Count 4.19 M/uL Normal 3.90-5.40 [...] 40.4-72.8 Lymph % 21.4 % Normal 20.0-42.0 Jack % 9.1 % Normal 4.3-13.2 Eo% 2.2 % Normal 0.0-6.6 Bas% 0.9 % Normal 0.0-1.1 Immature Grans 0.3 % Normal 0.0-5.0 NRBC % 0.0 /100WBC < 10/ 100 WBC Neut# 4.41 K/uL Normal 1.8-7.0 Lymph # 1.43 K/uL Normal 1.0-4.0 Jack # 0.61 K/uL Normal 0.3-0.9 Eos # 0.15 K/uL Normal 0.0-0.5 Baso # 0.06 K/uL Normal 0.0-0.1 Immature Grans Absolute 0.02 K/uL NRBC # 0.00 K/uL Laboratory test 11/03/2018 [facility] C-Reactive 6.8 mg/L High <3.[address] Protein,Quant [place], [place] [address] [phone] Comprehensive 11/03/2018 [facility] Glucose 61 mg/dL Low 74-106 Metabolic Panel [address] [place], [place] [address] [phone] BUN 14 mg/dL Normal 7-18 Creatinine 0.8 [...] 87 U/L Normal 45-117 Laboratory test 10/21/2018 [facility] Hemoglobin A1c 6.0 % High 4.0-5.[address] (Glyco HGB) [place] [address] [phone] Basic Metabolic 10/21/2018 [facility] Sodium 140 Normal 135- [address] mmol/[place] [address] [phone] Potassium 4.8 mmol/L Normal 3.5-5.0 Chloride 103 mmol/L Normal 101-111 Co2 Carbon Dioxide 30 mmol/L Normal 22-32 Anion Gap 7 mmol/L Normal 2-11 Glucose 123 mg/dL High 70-100 Blood Urea Nitrogen 15 mg/dL Normal 6-24 Creatinine 0.84 mg/dL Normal 0.51-0.95 BUN/Creatinine Ratio 17.9 Normal 8-20 Calcium 9.7 mg/dL Normal 8.6-10.3 Egfr Non- 68.7 >60 Egfr 83.1 >60 15 Basic Metabolic 10/08/2018 [facility] Sodium 140 mmol/L Normal 135-[address] [place] [address] [phone] Potassium 4.8 mmol/L Normal 3.5-5.0 Chloride 103 mmol/L Normal 101-111 Co2 Carbon Dioxide 28 mmol/L Normal 22-32 Anion Gap 9 mmol/L Normal 2-11 Glucose 103 mg/dL High 70-100 Blood Urea Nitrogen 14 mg/dL Normal 6-24 Creatinine 0.87 mg/dL Normal 0.51-0.95 BUN/Creatinine Ratio 16.1 Normal 8-20 Calcium 9.4 mg/dL Normal 8.6-10.3 Egfr Non- 66.0 >60 Egfr 79.8 >60 16 Laboratory test 10/08/2018 [facility] Hemoglobin A1c 6.1 % High 4.0-5.6 17 finding [address] [employer] [address] (Glyco [place]GB) [place] [address] [phone] Inr/Protime 09/23/2018 [facility] Inr 2.69 High 0.77-1.02 [address] [place] [address] [phone] 1 Standard intensity warfarin therapeutic range: 2.0-3.0 [...] [address]: Kim Sidhu MD Acct: [id number] Unit: [id number] AGE: 64 Location: [facility] Re03/18/19 SEX: F Status: REG REF SPEC: [id number] OFELIA: 03/18/[address]: Nina Devine MD REQ: [id number] RECD: 03/18/19 STATUS: COMP OTHR DR: Kim Sidhu MD _ SOURCE: URINE SPDESC: ORDERED: Urine Culture COMMENTS: PT OBTAINED BY CATHETERIZATION QUERIES: Urine Source: Catheterization Procedure Result Reported Site Urine Culture Final 03/19/19- 1122 ML No Growth (<1,000 CFU/mL) * ML - Main Lab . END OF REPORT DEPARTMENT OF PATHOLOGY, [address] [place] [address] Janes Oh M.D. Director [facility] # [id number] 5 Standard intensity warfarin therapeutic range: 2.0-3.0 High intensity warfarin therapeutic range: 2.5-3.5 6 BOTH LEGS HURT, HX BLOOD CLOT 7 Method: Shira Hobbs Hemoccult Card 8 KLEBSIELLA PNEUMONIAE 9 > [...] in selective patients <6.0%. Please refer to [place] [employer] diabetic care guidelines for further [...] in selective patients <6.0%. Please refer to [place] [employer] diabetic care guidelines for further information. Procedures Date Code Description Status 03/18/2019 53755 EKG-Tracing & Report Completed 03/17/2016 [id number] Colonoscopy Completed 05/27/2015 [id number] Bone Mineral Density Test Completed 05/09/2013 [id number] Mammogram Completed Medical Devices Description No Information Available Encounters Type Date Location Provider Dx Diagnosis Office Visit 02/06/2019 Main Office Kim Sidhu M.D. 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 disease, unspecified J44.9 Chronic obstructive pulmonary disease, unspecified I25.10 Athscl heart disease of [place] coronary artery w/o ang pctrs L03.115 Cellulitis of right lower limb Office Visit 12/30/2018 2:45p Main Office Kim Sidhu I73.9 Peripheral vascular M.D. disease, unspecified I25.10 Athscl heart disease of [place] coronary artery w/o ang pctrs J44.9 Chronic obstructive pulmonary disease, unspecified L03.115 Cellulitis of right lower limb E11.9 Type 2 diabetes mellitus without complications Office Visit 11/05/2018 3:15p Main Office Kim Sidhu I73.9 Peripheral vascular M.D. disease, unspecified N39.0 Urinary tract infection, site not specified Office Visit 09/30/2018 1:30p Main Office Kim Sidhu M.D. I25.10 Athscl heart disease of [place] coronary artery w/o ang pctrs E11.9 Type 2 diabetes mellitus without complications J44.9 Chronic obstructive pulmonary disease, unspecified Assessments Date Code Description Provider 03/20/2019 J01.90 Acute sinusitis, unspecified Kim Sidhu M.D. 03/18/2019 E78.2 Mixed hyperlipidemia Kim Sidhu M.D. 02/06/2019 H66.92 Otitis media, unspecified, left ear Kim Sidhu M.D. 02/06/2019 I95.1 Orthostatic hypotension Kim Sidhu M.D. 02/06/2019 Z79.01 custodial (current) use of anticoagulants Kim Sidhu M.D. 01/07/2019 I73.9 Peripheral vascular disease, unspecified Kim Sidhu M.D. 01/07/2019 J44.9 Chronic obstructive pulmonary disease, Kim Sidhu M.D. 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 12/30/2018 I73.9 Peripheral vascular disease, unspecified Kim Sidhu M.D. 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 unspecified 12/30/2018 L03.115 Cellulitis of right lower limb Kim Sidhu M.D. 12/30/2018 E11.9 Type 2 diabetes mellitus without complications Kim Sidhu M.D. 11/05/2018 I73.9 Peripheral vascular disease, unspecified Kim Sidhu M.D. 11/05/2018 N39.0 Urinary tract infection, site not specified Kim Sidhu M.D. 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 09/30/2018 J44.9 Chronic obstructive pulmonary disease, Kim Sidhu M.D. unspecified Plan of Treatment Future Appointment(s):03/25/2019 11:45 am - Kim Sidhu M.D. at Main [facility] - Kim Sidhu M.D.H66.92 Otitis media, unspecified, left earComments: gentle irrigation with normal saline, continue baby oil. stop azithromycin after last dose. continue follow up with Dr Morales95.1 Orthostatic hypotensionComments:suspect mild dehydration as cause of syncope 01/31, encouraged lkhnxbR40.01 custodial (current) use of anticoagulantsComments:may liberlize diet for next few days to include vitamin K rich foodsFollow up: Followup:. (Follow up) Functional Status Description No Information Available Mental Status Description No Information Available Referrals Description No Information Available
--- OUTSIDE RECORDS SUMMARY | 2019-03-26 17:07 | XMS REPORT | Continuity of Care Document ---
:1955 External Reference #:[id number] Author Name KAYDEN Cain (transmitted by agent of provider Kallie Leigh) Address [address] [place] [address] Care Team Providers Name Role Phone Kim Sidhu M.D. Care Team Information Call Or Contact Centre Team Leader [phone] Problems Active Problems Provider Date Uncomplicated moderate persistent asthma Kallei Leigh M.D. Onset: 04/03 Allergic rhinitis Kallie Leigh M.D. Onset: 11/30/2015 Uncomplicated moderate persistent asthma MATTHEW HopperP-C Onset: 2014 Angioneurotic edema, subsequent encounter RENEE Hopper-C Onset: 2014 Allergic asthma without status asthmaticus Kallie Leigh M.D. Onset: Idiopathic urticaria Kallie Leigh M.D. Onset: 09/17/2012 Chronic obstructive lung disease Kallie Leigh M.D. Onset: 03/19/2012 Angioedema Kallie Leigh M.D. Onset: 03/19/2012 Pruritus of skin Kallie Leigh M.D. Onset: 03/19/2012 Social History Type Date Description Comments Sex Unknown ETOH Use Denies alcohol use Tobacco Use Start: Unknown End: Patient is a former smoker 2002, quit Unknown Recreational Drug Use Denies Drug Use Allergies, Adverse Reactions, Alerts Active Allergies Reaction Severity Comments Date Penicillin lips and throat swell 04/29/2013 Wellbutrin throat swells mouth sores 04/29/2013 Silvadene throat swells mouth sores 04/29/2013 Sulfa throat lips eyes face swells 04/29/2013 Lyle Inhibitors cant swallow 11/04/2013 Tomatoes Blistering of lips 02/25/2019 Medications Active Medications SIG Qnty Indications Ordering Date Provider Hydroxyzine HCL Take 1 To 2 90tabs Elli Slaughtermond, 09/26/2018 25mg Tablets AT Bedtime SUPERVISORY INVESTIGATIVE SPECIALIST-C Tablets as Needed For Itching Epipen 2-Aaron as directed 22pak 995.1 Kallie Madelyn 04/29/2013 0.3mg/0.3ML Derrick Leigh Device Glipizide-Metformin Kim Sidhu HCL Derrick Blanco 5-500mg Tablets Pantoprazole Sodium Kim Sidhu 40mg Derrick Blanco Tablets Royce Bee MD. 40mg Tablets Warfarin Sodium Deisi Bruno, 2mg P.A. Tablets Potassium Chloride ER Kim Sidhu Derrick Blanco 10Meq Tablets ER Carvedilol Royce Roman MD. 3.125mg Tablets Oxymorphone HCL every 8 hours one Unknown 5mg tablet (max 3 Tablets tablets daily) Nitrofurantoin 1 tablet once a DelonteSherry, Macrocrystal day RPA-C 100mg Capsules Cilostazol 1 tablet twice a Unknown 50mg Tablets day Symbicort 2 inhalations Unknown 160-4.5mcg/Act am&pm Aerosol Coumadin 1 tablet once a Unknown 4mg Tablets day Proventil HFA 2 puffs every 4-6 Unknown 108(90Base) hours as needed mcg/Act Aerosol Metformin HCL 1 tablet once a Unknown 500mg day Tablets Meclizine HCL 1 tablet once a Unknown 25mg day Tablets Nasonex once a day Charlie, 50mcg/Act Nadira, TAX MANAGER CPA Suspension Ropinirole HCL 1 tablet once a Unknown 1mg day Tablets Metamucil once a day Unknown 28.3% Powder Multi Complete 1 po qd Unknown Capsules Tramadol HCL 1 tablet once a Unknown 50mg Tablets day Simvastatin 1 tablet once a Unknown 5mg Tablets day Amlodipine Besylate 1 tablet once a Unknown 5mg day Tablets Clopidogrel 1 tablet once a Unknown 75mg Tablets day Megestrol Acetate 1 tablet a day Unknown 40mg Tablets Kathie Allergy 1 po qd 30tabs Unknown 180mg Tablets Nitroglycerin Lingual as needed Unknown 0.4mg/[place]ammond Solution Albuterol Sulfate 1 neb inh q4h prn 1box Unknown (2.5mg/3ML) 0.083% Nebulizer Buspar 3 tablets once a Unknown 15mg Tablets day Zantac 1 tablet once a Unknown 150mg Tablets day Immunizations CPT Code Status Date Vaccine Lot # [id number] Given 03/20/2013 Pneumococcal Vaccine 63769 Given Unknown Influenza Vaccine 57243 Given Unknown Influenza Vaccine 94334 Given Unknown Influenza Vaccine 08199 Given Unknown Influenza Vaccine 63215 Given Unknown Pneumococcal Conjugate Vaccine 13 Valent For Intramuscular Use Vital Signs Date Vital Result Comment 02/25/2019 10:02am Height 64 inches 5'4" Weight 180.00 lb Weight 81.648 kg Respiratory Rate 20 /min Heart Rate 78 /min O2 % BldC Oximetry 96 % BP Systolic 122 mmHg BP Diastolic 68 mmHg Asthma Control Test 12 Fractional Exhaled Nitric Oxide 11 BMI (Body Mass Index) 30.9 kg/m2 08/20/2018 8:50am Height 64 inches 5'4" Weight 176.00 lb Weight 79.834 kg Respiratory Rate 20 /min Heart Rate 78 /min BP Systolic 132 mmHg BP Diastolic 70 mmHg Asthma Control Test 18 Fractional Exhaled Nitric Oxide 7 BMI (Body Mass Index) 30.2 kg/m2 Results Description No Information Available Procedures Date Code Description Status 02/25/2019 44120 Nitric Oxide Gas Determination Completed 02/25/2019 75747 Pre PFT Completed Medical Devices Description No Information Available Encounters Type Date Location Provider Dx Diagnosis Office Visit 02/25/2019 [place] [facility] Sarah Sheppard, J44.9 Chronic obstructive 10:00a SUPERVISORY INVESTIGATIVE SPECIALIST-C pulmonary disease, unspecified J30.9 Allergic rhinitis, unspecified J45.40 Moderate persistent asthma, uncomplicated Assessments Date Code Description Provider 02/25/2019 J44.9 Chronic obstructive pulmonary disease, Jose Katz M.D. unspecified 02/25/2019 J44.9 Chronic obstructive pulmonary disease, RENEE Cain unspecified 02/25/2019 J30.9 Allergic rhinitis, unspecified Jose Ktaz M.D. 02/25/2019 J30.9 Allergic rhinitis, unspecified KAYDEN Cain 02/25/2019 J45.40 Moderate persistent asthma, uncomplicated Jose Katz M.D. 02/25/2019 J45.40 Moderate persistent asthma, uncomplicated KAYDEN Cain Plan of Treatment Future Appointment(s):07/01/2019 10:00 am - KAYDEN Cain at [facility] Functional Status Description No Information Available Mental Status Description No Information Available Referrals Description No Information Available
--- OUTSIDE RECORDS SUMMARY | 2019-03-26 17:07 | XMS REPORT | Continuity of Care Document ---
:1955 External Reference #:[id number] Author Name KAYDEN Cain (transmitted by agent of provider Kallie Leigh) Address [address] [place] [address] Care Team Providers Name Role Phone Kim Sidhu M.D. Care Team Information Plaster Tender [phone] Problems Active Problems Provider Date Uncomplicated moderate persistent asthma Kallie Leigh M.D. Onset: 04/03 Allergic rhinitis Kallie [...] Elli Slaughtermond, 09/26/2018 25mg Tablets AT Bedtime DISTRIBUTED GENERATION PROJECT MANAGER-C Tablets as Needed For Itching Epipen 2-Aaron [...] Nasonex once a day Charlie, 50mcg/Act Nadira, PERSONAL FITNESS MANAGER Suspension Ropinirole HCL 1 tablet once a [...] 180mg Tablets Nitroglycerin Lingual as needed Unknown 0.4mg/[place] Solution Albuterol Sulfate 1 neb inh q4h prn 1box Unknown (2.5mg/3ML) 0.083% Nebulizer Buspar 3 tablets once a Unknown 15mg Tablets day Zantac 1 tablet once a Unknown 150mg Tablets day Immunizations CPT Code Status Date Vaccine Lot # [id number] Given 03/20/2013 Pneumococcal Vaccine 29669 Given Unknown Influenza Vaccine 49055 Given Unknown Influenza Vaccine 77934 Given Unknown Influenza Vaccine 26151 Given Unknown Influenza Vaccine 02917 Given Unknown Pneumococcal Conjugate Vaccine 13 Valent [...] Available Procedures Date Code Description Status 02/25/2019 90135 Nitric Oxide Gas Determination Completed 02/25/2019 32362 Pre PFT Completed Medical Devices Description No Information Available Encounters Type Date Location Provider Dx Diagnosis Office Visit 02/25/2019 [place] [facility] Sarah Sheppard, J44.9 Chronic obstructive 10:00a DISTRIBUTED GENERATION PROJECT MANAGER-C pulmonary disease, unspecified J30.9 Allergic rhinitis, unspecified J45.40 Moderate persistent asthma, uncomplicated Assessments Date Code Description Provider 02/25/2019 J44.9 Chronic obstructive pulmonary disease, Jose Katz M.D. unspecified 02/25/2019 J44.9 Chronic obstructive pulmonary disease, RENEE Cain unspecified 02/25/2019 J30.9 Allergic rhinitis, unspecified Jose Katz M.D. 02/25/2019 J30.9 Allergic rhinitis, unspecified KAYDEN Cain 02/25/2019 J45.40 Moderate persistent asthma, uncomplicated Jose Katz M.D. 02/25/2019 J45.40 Moderate persistent asthma, uncomplicated KAYDEN Cain Plan of Treatment Future Appointment(s):07/01/2019 10:00 am - KAYDEN Cain at [facility] Functional Status Description No Information Available Mental Status Description No Information Available Referrals Description No Information Available
--- OUTSIDE RECORDS SUMMARY | 2019-03-26 17:07 | XMS REPORT | Continuity of Care Document ---
:1955 External Reference #:[id number] Author Name Brnadon Redman M.D. 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 [employer] Problems Active Problems Provider Date Obstructive sleep apnea syndrome Yenny Mathias PA Onset: 11/27/2011 Social History Type Date Description Comments Sex Unknown Tobacco Use Start: Unknown End: Unknown Former Cigarette Smoker ETOH Use Never used alcohol Allergies, Adverse Reactions, Alerts Active Allergies Reaction Severity Comments Date PCN Anaphylaxis Severe 10/22/2007 Wellbutrin 10/22/2007 Silvadene Anaphylaxis Severe 11/09/2010 sulfa 11/27/2012 Shellfish-derived Products 11/27/2012 Medications Active Medications SIG Qnty Indications Ordering Date Provider Lisinopril 1 by mouth every Unknown 2.5mg day Tablets Warfarin Sodium 4.5 mg by mouth Unknown 4mg daily per inr Tablets instructions Cilostazol bid Unknown 50mg Tablets Ventolin HFA 2 puffs every 4 Unknown hours as needed 108(90Base) mcg/Act Aerosol Aspirin 1 by mouth every Unknown 81mg day Tablets DR Waldron Unknown Epipen prn Unknown 0.3mg/0.3ML Solution Auto-Inject Ropinirol 1 tablet daily @ hs 30tabs Unknown 1mg Tablets Oxybutynin Chloride 1 by mouth daily Unknown ER 5mg Tablets ER 24HR Simvastatin qday Unknown 5mg Tablets Amlodipine Besylate 1 by mouth every Unknown day 5mg Tablets Nitroquick prn Unknown 0.4mg Albuterol Sulfate every 4 hours prn 120units Unknown (2.5mg/3ML) 0.083% Nebulizer Womens One Daily 1 qday Unknown Tablets Hydroxyzine HCL q day @ hs Unknown 25mg Tablets Ranitidine HCL qday Unknown 150mg Capsules Pantoprazole Sodium q day Unknown 20mg Tablets DR Megestrol Acetate prn Unknown 40mg Tablets Buspirone HCL take 1tablets tid 180tabs Unknown 15mg Tablets History Medications Azithromycin 2 by mouth every 6tabs Brandon Redman, 02/03/2019 - 250mg Tablets day 1, 1 by mouth M.D. 02/27/2019 every day 2-5 Ciprodex 3-4 gtts bid in 15ml Brandon Redman, 01/29/2019 - 0.3-0.1% affected ear x 1 wk M.D. 02/27/2019 Suspension rebate: rxbin: [id number], rxpcn: [email or web address], rxgrp: [id number], tenant relations coordinator: [id number]), id# [id number] Dexamethasone 1 by mouth every 7tabs Brandon Redman, 11/12/2018 - 2mg Tablets day M.D. 12/02/2018 Prednisone 1 by mouth every 5tabs Brandon Redman, 09/26/2018 - 20mg Tablets day for 5 days M.D. 11/11/2018 Immunizations Description No Information Available Vital Signs Date Vital Result Comment 03/12/2019 8:30am Weight 190.00 lb Height 64.5 inches 5'4.50" BMI (Body Mass Index) 32.1 kg/m2 BP Systolic 124 mmHg BP Diastolic 81 mmHg Heart Rate 89 /min O2 % BldC Oximetry 92 % Body Temperature 96.3 F Pain Level 0 02/27/2019 10:56am Weight 188.00 lb Height 64.5 inches 5'4.50" BMI (Body Mass Index) 31.8 kg/m2 BP Systolic 167 mmHg BP Diastolic 85 mmHg Heart Rate 99 /min O2 % BldC Oximetry 90 % Body Temperature 97.4 F Pain Level 0 Results Description No Information Available Procedures Date Code Description Status 01/16/2019 36467 Tympanostomy, Gen. Anesth. Completed 01/16/2019 88410 Anesthesia, Tympanotomy Completed 11/12/2018 06546 Tympanometry Completed 11/12/2018 20020 Audiometry, Comprehensive Completed 11/12/2018 48919 Cat Scan Orbit/Ear W/O Contrast,computed tomography Completed 11/12/2018 37607 Cat Scan Orbit/Ear W/O Contrast,computed tomography Completed 11/12/2018 76685 Cat Scan Orbit/Ear W/O Contrast,computed tomography Completed 11/12/2018 53210 Nasal Endoscopy, Diag. Completed Medical Devices Description No Information Available Encounters Type Date Location Provider Dx Diagnosis Office Visit 02/27/2019 [facility] Brandon Redman M.D. H93.12 Tinnitus, left ear 11:00a Z96.22 Myringotomy tube(s) status Office Visit 12/03/2018 9:30a [facility] Brandon Redman H93.12 Tinnitus, left ear M.D. H90.3 Sensorineural hearing loss, bilateral G47.33 Obstructive sleep apnea (adult) (pediatric) Office Visit 11/12/2018 3:30p [facility] Brandon Redman G47.33 Obstructive sleep M.D. apnea (adult) (pediatric) H93.12 Tinnitus, left ear H90.3 Sensorineural hearing loss, bilateral H69.92 Unspecified Eustachian tube disorder, left ear J31.0 Chronic rhinitis Office Visit 09/26/2018 1:45p [facility] Office Nadira Han G47.33 Obstructive sleep NOHEMI Guerra apnea (adult) (pediatric) H93.12 Tinnitus, left ear Assessments Date Code Description Provider 02/27/2019 H93.12 Tinnitus, left ear Brandon Redman M.D. 02/27/2019 Z96.22 Myringotomy tube(s) status Brandon Redman M.D. 01/29/2019 H93.12 Tinnitus, left ear Nadira Guerra NP 01/16/2019 H93.12 Tinnitus, left ear Michael Palmer MD 01/16/2019 H93.12 Tinnitus, left ear Brandon Redman M.D. 01/16/2019 H91.92 Unspecified hearing loss, left ear Michael Palmer MD 01/16/2019 H91.92 Unspecified hearing loss, left ear Brandon Redman M.D. 12/03/2018 H93.12 Tinnitus, left ear Brandon Redman M.D. 12/03/2018 H90.3 Sensorineural hearing loss, bilateral Brandon Redman M.D. 12/03/2018 G47.33 Obstructive sleep apnea (adult) (pediatric) Brandon Redman M.D. 11/12/2018 G47.33 Obstructive sleep apnea (adult) (pediatric) Brandon Redman M.D. 11/12/2018 H93.12 Tinnitus, left ear Ericka Travis MD 11/12/2018 H93.12 Tinnitus, left ear Brandon Redman M.D. 11/12/2018 H90.3 Sensorineural hearing loss, bilateral Ericka Travis MD 11/12/2018 H90.3 Sensorineural hearing loss, bilateral Brandon Redman M.D. 11/12/2018 H69.92 Unspecified Eustachian tube disorder, left ear Ericka Travis MD 11/12/2018 H69.92 Unspecified Eustachian tube disorder, left ear Brandon Redman M.D. 11/12/2018 J31.0 Chronic rhinitis Brandon Redman M.D. 09/26/2018 G47.33 Obstructive sleep apnea (adult) (pediatric) Nadira Guerra NP 09/26/2018 H93.12 Tinnitus, left ear Nadira Guerra NP Plan of Treatment Future Appointment(s):05/29/2019 10:45 am - Brandon Redman M.D. at [id number] - Brandon Redman M.D.381.81 Eustachian Tube Iyrdvakqjzz838.4 Dizziness & amp; Turahofpn261.10 Hearing Loss Sensorineural Unspec Functional Status Description No Information Available Mental Status Description No Information Available Referrals Description No Information Available
--- OUTSIDE RECORDS SUMMARY | 2019-03-26 17:07 | XMS REPORT | Continuity of Care Document ---
:1955 External Reference #:[id number] Author Name Kim Sidhu M.D. (transmitted by agent of provider Enedina Licea) Address [address] [place] [address] Problems Active Problems Provider Date Chronic obstructive [...] Medications SIG Qnty Indications Ordering Date Provider Glipizide/Metformin Take 1 tablet by 90tabs E11.9 Kim Sidhu, 09/30/2018 Hydrochloride mouth daily. M.D. 5-500mg Tablets Nitroglycerin Dissolve 1 Tab [...] directed for 100units Kim Sidhu, 11/03/2015 28G Misc fs testing a day M.D. dx e11.65 Accu-Chek Compact Plus as directed 1units Kim Sidhu, 10/28/2015 Care Kit M.D. Kit Accu-Chek Compact Plus as directed 1units E11.9 Kim Sidhu, 08/24/2014 Care Kit M.D. Kit Accu-Chek Compact as supplies 100units E11.9 Kim Sidhu, 08/24/2014 Strips M.D. Accu-Chek Fastclix as directed 100units E11.9 Kim Sidhu, 08/24/2014 Lancets M.D. Misc Simvastatin Take 1 tablet by 90tabs I25.9 Kim Sidhu, 05/05/2013 5mg Tablets mouth daily. M.D. Ropinirole HCL Take 1 Tablet AT 90tabs G25.81 Kim Sidhu, 12/25/2012 1mg Bedtime M.D. Tablets Albuterol Sulfate Use One Vial Via 120units J45.909 Kim Sidhu, 2012 Nebulizer 4 M.D. (2.5mg/3ML) 0.083% Times Daily For Nebulizer Shortness Of Breath Pantoprazole Sodium take 1 tablet by 90tabs K21.9 Kim Sidhu, 10/23/2012 40mg mouth every day M.D. Tablets DR Grier 1 po q 6 hrs 50caps 692.89 Kim Sidhu, 01/13/2009 25mg Capsules prn M.D. Megestrol Acetate 1 by mouth every Unknown 40mg day Tablets Symbicort 2 puff twice a Unknown 80-4.5mcg/Act day Aerosol Hydroxyzine HCL take one tablet Unknown 25mg by mouth four Tablets times a day as needed Lisinopril 1 by mouth every Unknown 2.5mg Tablets day Carvedilol take one tablet Unknown 6.25mg Tablets by mouth twice a day Lasix 1 by mouth every Unknown 40mg Tablets day Aspirin 1 by mouth every Unknown 81mg Tablets DR day Nitrofurantoin 1 by mouth every Unknown Macrocrystal day 50mg Capsules Melatonin ER Unknown 3mg Tablets ER Vitamin B-12 2 tablet by Unknown Natural mouth every day 500mcg Tablets Multi For Her 50+ 1 by mouth every Unknown day Capsules Oxymorphone HCL 1 tablet 3 times Unknown 5mg a day Tablets Warfarin Sodium 1 by mouth every Unknown 5mg day Tablets History Medications Fentanyl apply to skin 5units I73.9 Kim Sidhu, 11/05/2018 - 25mcg/HR Patches and change M.D. 02/06/2019 72HR every 72 hours Ciprofloxacin HCL 1 by mouth 30tabs N39.0 Kim Sidhu, 11/05/2018 - 500mg twice a day M.D. 02/06/2019 Tablets Ciprofloxacin HCL 1 by mouth 14tabs H66.92 Kim Sidhu, 08/26/2018 - 500mg twice a day M.D. 09/30/2018 Tablets Potassium Chloride ER 1 by mouth 90tabs E87.6 Kim Sidhu, 08/14/2018 - every day M.D. 08/26/2018 10Meq Tablets ER Medications Administered in Office Medication SIG Qnty Indications Ordering Provider Date H1N1 Administration-Use Kim Sidhu M.D. 07/12/2009 Injection Immunizations CPT Code Status Date Vaccine Lot # [id number] Given 03/20/2017 Influenza Virus (Afluria) Split Virus 3 Years Of Age And Older [id number] Given 04/13/2016 Influenza Vaccine (Fluvirin) 4 Years Of Age Or [id number] Older Q2037 Given 04/06/2014 Influenza Vaccine (Fluvirin) 4 Years Of Age Or [id number] Older Q2038 Given 03/10/2013 Influenza Vaccine (Fluzone) Administered Age 3 [id number] And Older Q2037 Given 02/20/2012 Influenza Vaccine (Fluvirin) 4 Years Of Age Or [id number] Older Q2036 Given 03/13/2011 Flulaval [id number] 63361 Given 06/21/2010 [place] [address] Given 02/24/2010 Influenza Vaccine [id number] 44644 Given 02/26/2009 Influenza Vaccine [id number] 69051 Given 03/12/2008 Influenza Vaccine [id number] 44314 Given 04/02/2007 Influenza Vaccine [id number] 08472 Given 05/31/2006 Influenza Vaccine [id number] 92044 Given 05/17/2005 Influenza Vaccine [id number] 92222 Given 06/18/2003 Tetanus And Diptheria Toxiods Vital Signs Date Vital Result Comment 02/06/2019 10:34am BP Systolic 140 mmHg BP Diastolic 70 mmHg Heart Rate 80 /min Height 64 inches 5'4" O2 % BldC Oximetry 93 % 12/30/2018 2:41pm BP Systolic 120 mmHg BP Diastolic 56 mmHg Heart Rate 92 /min Height 64 inches 5'4" Weight 189.00 lb BMI (Body Mass Index) 32.4 kg/m2 O2 % BldC Oximetry 90 % Results Test Date Facility Test Result H/L Range Note Inr/Protime 12/30/2018 [facility] In[facility] 2.23 High 0.82-1.09 1 [address] [place], [place] [id number] [phone] [facility] 11/03/2018 [facility] Glucose 61 mg/dL Low 74-106 2 Metabolic Panel [address] [place], [place] [id number] [phone] BUN 14 mg/dL Normal 7-18 Creatinine 0.8 mg/dL Normal 0.6-1.3 Glom Filtration Rate, Estimate >60 mL/min >60 If >60 mL/min >60 3 BUN/Creat 17.5 ratio Sodium 139 mmol/L Normal [...] Alkaline Phosphatase 87 U/L Normal 45-117 Laboratory 11/03/2018 [facility] C-Reactive 6.8 mg/L High <3.0 test finding [address] Protein,Quant [place], [place] [id number] [phone] [facility] 11/03/2018 [facility] White Blood Count 6.7 K/uL Normal 3.1-10.7 W/Automated [address] Diff [place], [place] [id number] [phone] Red Blood Count 4.19 M/uL Normal 3.90-5.40 [...] 40.4-72.8 Lymph % 21.4 % Normal 20.0-42.0 [place] % 9.1 % Normal 4.3-13.2 Eo% 2.2 % Normal 0.0-6.6 Bas% 0.9 % Normal 0.0-1.1 Immature Grans 0.3 % Normal 0.0-5.0 NRBC % 0.0 /100WBC < 10/ 100 WBC Neut# 4.41 K/uL Normal 1.8-7.0 Lymph # 1.43 K/uL Normal 1.0-4.0 [place] # 0.61 K/uL Normal 0.3-0.9 Eos # 0.15 K/uL Normal 0.0-0.5 Baso # 0.06 K/uL Normal 0.0-0.1 Immature Grans Absolute 0.02 K/uL NRBC # 0.00 K/uL Laboratory test 11/03/2018 [facility] Sedimentation 5 mm/hr Normal 2-45 [address] [place] [address] [phone] Urinalysis With 11/03/2018 [facility] Urine Color YELLOW Yellow Microscopic [address] [place] [address] [phone] Urine Clarity CLEAR Clear Urine Glucose - Dipstick NEGATIVE mg/dL Negative Urine Bilirubin - Dipstick NEGATIVE Negative Urine Ketone NEGATIVE mg/dL Negative Urine Specific [place] 1.010 Normal 1.010-1.030 Urine Blood NEGATIVE Negative [...] Seen Source: URINE, CLEAN CAT <SEE NOTE> 5 Urine Culture 11/03/2018 [facility] Urine Culture KLEBSIELLA Abnormal [address] PNEUM <[place] [address] NOTE> [phone] Quantity > 100,000 CFU/mL 7 Urine Culture URETHRAL BOBBY Quantity 10,000 - 50,000 <SEE NOTE> 8 Klebsiella 11/03/2018 [facility] Nitrofurantoin 256 Resistant Pneumoniae [address] [place] [address] [phone] Trimethoprim/Sulfamethoxazole <=20 Susceptible Ampicillin >=32 Resistant Cefazolin <=4 Susceptible Ampicillin/Sulbactam 16 Intermediate Ciprofloxacin <=0.25 Susceptible Piperacillin/Tazobactam 16 Susceptible Ceftazidime <=1 Susceptible Ceftriaxone <=1 Susceptible Cefepime <=1 Susceptible Levofloxacin 1 Susceptible Imipenem <=0.25 Susceptible Gentamicin <=1 Susceptible Tobramycin <=1 Susceptible Laboratory 11/03/2018 [facility] Occult NEGATIVE Negative 9 test finding [address] Blood,[place] [address] [phone] Laboratory 10/21/2018 [facility] Hemoglobin A1c 6.0 % High 4.0- 5.6 10 test finding [address]) [place] [address] [phone] Basic 10/21/2018 [facility] Sodium 140 mmol/L Normal 135-[address] [place] [address] [phone] Potassium 4.8 mmol/L Normal 3.5-5.0 Chloride 103 mmol/L Normal 101-111 Co2 Carbon Dioxide 30 mmol/L Normal 22-32 Anion Gap 7 mmol/L Normal 2-11 Glucose 123 mg/dL High 70-100 Blood Urea Nitrogen 15 mg/dL Normal 6-24 Creatinine 0.84 mg/dL Normal 0.51-0.95 BUN/Creatinine Ratio 17.9 Normal 8-20 Calcium 9.7 mg/dL Normal 8.6-10.3 Egfr Non- 68.7 >60 Egfr 83.1 >60 11 Basic Metabolic 10/08/2018 [facility] Sodium 140 mmol/L Normal 135-[address] [place] [address] [phone] Potassium 4.8 mmol/L Normal 3.5-5.0 Chloride 103 mmol/L Normal 101-111 Co2 Carbon Dioxide 28 mmol/L Normal 22-32 Anion Gap 9 mmol/L Normal 2-11 Glucose 103 mg/dL High 70-100 Blood Urea Nitrogen 14 mg/dL Normal 6-24 Creatinine 0.87 mg/dL Normal 0.51-0.95 BUN/Creatinine Ratio 16.1 Normal 8-20 Calcium 9.4 mg/dL Normal 8.6-10.3 Egfr Non- 66.0 >60 Egfr 79.8 >60 12 Laboratory test 10/08/2018 [facility] Hemoglobin A1c 6.1 % High 4.0-5.6 13 finding [address] ([facility] [place]) [place] [address] [phone] Inr/Protime 09/23/2018 [facility] Inr 2.69 High 0.77-1.[address] [place] [address] [phone] Basic Metabolic 08/19/2018 [facility] Sodium 139 Normal 135- [address] mmol/[place] [address] [phone] Chloride 102 mmol/L Normal 101-111 Co2 Carbon Dioxide 32 mmol/L Normal 22-32 Glucose 116 mg/dL High 70-100 Blood Urea Nitrogen 13 mg/dL Normal 6-24 Creatinine 0.76 mg/dL Normal 0.51-0.95 BUN/Creatinine Ratio 17.1 Normal 8-20 Calcium 9.3 mg/dL Normal 8.6-10.3 Egfr Non- 77.1 >60 Egfr 93.3 >60 14 Potassium 5.1 mmol/L High 3.5-5.0 Anion Gap 5 mmol/L Normal 2-11 1 Standard intensity warfarin therapeutic range: 2.0-3.0 High intensity warfarin therapeutic range: 2.5-3.5 2 BOTH LEGS HURT, HX BLOOD CLOT 3 Note: Persistent reduction for 3 months or more in an eGFR <60 mL/min/1.73 m2 defines CKD. Patients with eGFR values >/=60 mL/min/1.73 m2 may also have CKD if evidence of persistent proteinuria is present. The original MDRD equation for estimated GFR is not valid for patients less than 18 years of age. Additional information may be found at www.kdoqi.org. 4 This result was obtained with an ESR method that is not based on the standard Westergren Method. When comparing results obtained from the traditional Westergren ESR and this method it is important to refer to the reference range for each method. Method: Capillary Photometry 5 URINE, CLEAN CATCH 6 KLEBSIELLA PNEUMONIAE 7 > 100,000 CFU/mL 8 10,000 - 50,000 CFU/mL 9 Method: [employer] Mayda Hemoccult Card 10 Therapeutic target for the treatment of diabetes mellitus patients is <7% HBA1C, and in selective patients <6.0%. Please refer to [employer] diabetic care guidelines for further information. 11 Because ethnic data is not always readily [...] 15-29 5 Kidney failure <15 (or dialysis) 12 Because ethnic data is not always readily [...] 15-29 5 Kidney failure <15 (or dialysis) 13 Therapeutic target for the treatment of diabetes mellitus patients is <7% HBA1C, and in selective patients <6.0%. Please refer to [employer] diabetic care guidelines for further information. 14 Because ethnic data is not always readily [...] 15-29 5 Kidney failure <15 (or dialysis) Procedures Date Code Description Status 03/17/2016 [id number] Colonoscopy Completed 05/27/2015 [id number] Bone Mineral Density Test Completed 05/09/2013 [id number] Mammogram Completed Medical Devices Description No Information Available Encounters Type Date Location Provider Dx Diagnosis Office Visit 01/07/2019 Main Office Kim Sidhu M.D. 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 disease, unspecified N39.0 Urinary tract infection, site not specified Office Visit 09/30/2018 1:30p Main Office Kim Sidhu M.D. 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 01/07/2019 J44.9 Chronic obstructive pulmonary disease, Kim Gauss, M.D. 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 12/30/2018 I73.9 Peripheral vascular disease, unspecified Kim Sidhu M.D. 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 unspecified 12/30/2018 L03.115 Cellulitis of right lower limb Kim Sidhu M.D. 12/30/2018 E11.9 Type 2 diabetes mellitus without complications Kim Sidhu M.D. 11/05/2018 I73.9 Peripheral vascular disease, unspecified Kim Sidhu M.D. 11/05/2018 N39.0 Urinary tract infection, site not specified Kim Sidhu M.D. 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 09/30/2018 J44.9 Chronic obstructive pulmonary diseaseKim M.D. 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 08/26/2018 J44.9 Chronic obstructive pulmonary diseaseKim M.D. unspecified 08/26/2018 H66.92 Otitis media, unspecified, left ear Kim Sidhu M.D. 08/14/2018 J44.9 Chronic obstructive pulmonary diseaseKim M.D. unspecified 08/14/2018 E11.9 Type 2 diabetes mellitus without complications Kim Sidhu M.D. 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 Plan of Treatment Future Appointment(s):03/25/2019 10:30 am - Kim Sidhu M.D. at [id number] - Kim Sidhu M.D.I73.9 Peripheral vascular disease, unspecifiedComments:surgery on right deferred until 1 year post cardiac flnwnjfI13.10 Atherosclerotic heart disease of [place] coronary artery without angina pectorisComments:doing well with cardiac rehab now takes oral diabetic meds after rehab potassium was 5.1 can stop potassium pill will recheck bmp at next visit potassium is now isbzkwE07.9 Chronic obstructive pulmonary disease , unspecifiedComments:Side effects of medications discussed and understood. To call office if cough or wheezing worsens PFTS on return to office needs annual influenza vaccine update pneumovax as jwmdmjY82.115 Cellulitis of right lower limbComments:antibiotic treatment follow up in 1 weekFollow up:Followup:. ( Follow up)E11.9 Type 2 diabetes mellitus without complications Functional Status Description No Information Available Mental Status Description No Information Available Referrals Description No Information Available
--- OUTSIDE RECORDS SUMMARY | 2019-03-26 17:07 | XMS REPORT | Continuity of Care Document ---
:1955 External Reference #:[id number] Author Name Koby Temple DO, MPH Address [address] [place] [address], [address] [place] [address] Problems Description No Information Available Social History Type Date Description Comments Sex Unknown Cigarette Use Former Cigarette Smoker ETOH Use Denies alcohol use Tobacco Use Start: Unknown End: Unknown Patient is a former smoker Smoking Status Reviewed: 03/17/19 Patient is a former smoker Allergies, Adverse Reactions, Alerts Active Allergies Reaction Severity Comments Date Penicillins 05/20/2009 Wellbutrin 05/20/2009 Shellfish-derived Products 05/07/2013 Silvadene 05/07/2013 Medications Active Medications SIG Qnty Indications Ordering Provider Date Oxymorphone HCL si by mouth 90tabs Koby Temple DO, 07/06/2017 5mg every 8 hours as MPH Tablets directed Alpha-Lipoic Acid take one capsule 90caps Koby Temple DO, 06/07/2015 200mg by mouth every 8 MPH Capsules hours as directed chronic pain. Cilostazol bid Unknown 100mg Tablets Coumadin Unknown 4mg Tablets Plavix si by mouth Unknown 75mg Tablets every daily as directed Meloxicam Q day Unknown 7.5mg Tablets Macrobid qd Unknown 100mg Capsules Metformin HCL once in the Unknown 500mg morning Tablets Meclizine HCL take one tab Unknown 25mg three times per Tablets day Tramadol HCL si po q8h ud 90tabs Unknown 50mg Tablets Womens One A Day daily 30tabs Unknown Vitamin B12/ 1000mg Tablets Metamucil 1 tsp daily Unknown 28.3% Powder Ropinirole HCL daily 30tabs Unknown 1mg Tablets Oxybutynin Chloride sig: daily Unknown ER 10mg Tablets ER 24HR Amlodipine Besylate si po qd 30tabs Unknown 5mg Tablets Pantoprazole Sodium sig: daily Unknown 20mg Tablets DR Megestrol Acetate sig: daily 30mg Unknown 40mg Tablet Buspirone HCL tid 90tabs Unknown 15mg Tablets Hydroxyzine HCL si po tid 30tabs Unknown 25mg Tablets chronic pain patient Premarin 1 po qod Unknown 1.25mg Tablets Ranitidine HCL Unknown 150mg Capsules Kathie 1 po qd Unknown 25 Tablets Nitroquick prn Unknown 0.4mg Tablets Sub Albuterol Inhalation prn 1units Unknown 90mcg/Dose Aerosol Immunizations Description No Information Available Vital Signs Date Vital Result Comment 03/17/2019 8:48am BP Systolic 128 mmHg BP Diastolic 72 mmHg Heart Rate 74 /min Respiratory Rate 20 /min Height 64 inches 5'4" Weight 192.00 lb Pain Level 5 Pain at this time. Pain Level With Medicine 5 on average with meds Pain Level Without Medicine 9 without meds BMI (Body Mass Index) 33.0 kg/m2 02/13/2019 9:21am BP Systolic 132 mmHg BP Diastolic 84 mmHg Heart Rate 86 /min Respiratory Rate 20 /min Height 64 inches 5'4" Weight 192.00 lb Pain Level 4 Pain at this time. Pain Level With Medicine 4 on average with meds Pain Level Without Medicine 9 without meds BMI (Body Mass Index) 33.0 kg/m2 Results Description No Information Available Procedures Date Code Description Status 12/11/2018 52662 Test Autonomic Nervous System, Sudomotor Completed 12/11/2018 59089 Test Autonomic Nervous System, Cardiovagal Innervation Completed Medical Devices Description No Information Available Encounters Type Date Location Provider Dx Diagnosis Office Visit 02/13/2019 Main Office as Of Koby Temple DO, G89.21 Chronic pain due 9:15a 2//14 MPH to trauma M25.512 Pain in left shoulder Z79.891 [facility] (current) use of opiate analgesic 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 Office Visit 01/09/2019 10:15a Main Office as Koby Temple G89.21 Chronic pain due Of 07/19/13 DO, MPH to trauma M25.512 Pain in left shoulder Z79.891 [facility] (current) use of opiate analgesic G90.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 Z79.891 [facility]itentiary (current) use of opiate analgesic Office Visit 12/11/2018 9:45a Main Office as Koby Temple G89.21 Chronic pain due Of 07/19/13 DO, MPH to trauma M25.512 Pain in left shoulder Z79.891 [facility] (current) use of opiate analgesic G90.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 Z79.891 [facility]iary (current) use of opiate analgesic Office Visit 11/12/2018 11:15a Main Office as Koby Temple G89.21 Chronic pain due Of 07/19/13 DO, MPH to trauma M25.512 Pain in left shoulder Z79.891 [facility]itentiary (current) use of opiate analgesic Z79.891 [facility]iary (current) use of opiate analgesic Office Visit 10/29/2018 9:30a Main Office as Koby Temple G89.21 Chronic pain due Of 07/19/13 DO, MPH to trauma M25.512 Pain in left shoulder 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 Office Visit 10/15/2018 9:30a Main Office as Koby Temple G89.21 Chronic pain due Of 07/19/13 DO, MPH to trauma M25.512 Pain in left shoulder 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 Office Visit 10/01/2018 10:30a Main Office as Koby Temple G89.21 Chronic pain due Of 07/19/13 DO, MPH to trauma M25.512 Pain in left shoulder 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 Assessments Date Code Description Provider 03/17/2019 G89.21 Chronic pain due to trauma Temple, Koby, DO, MPH 03/17/2019 M25.512 Pain in left shoulder Temple, Koby, DO, MPH 03/17/2019 M99.07 Segmental and somatic dysfunction of upper Temple, Koby, DO, MPH extremity 03/17/2019 Z79.891 penitentiary (current) use of opiate analgesic Temple, Koby , DO, MPH 03/17/2019 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 Temple, Koby , DO, MPH 02/13/2019 G89.21 Chronic pain due to trauma Temple, Koby, DO, MPH 02/13/2019 M25.512 Pain in left shoulder Temple, Koby, DO, MPH 02/13/2019 Z79.891 [facility]itentiary (current) use of opiate analgesic Temple, Koby , DO, MPH 02/13/2019 Z79.891 [facility]iary (current) use of opiate analgesic Temple, Koby , DO, MPH 01/09/2019 G89.21 Chronic pain due to trauma Temple, Koby, DO, MPH 01/09/2019 M25.512 Pain in left shoulder Temple, Koby, DO, MPH 01/09/2019 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 Temple, Koby , DO, MPH 01/09/2019 G90.3 Multi-system degeneration of the autonomic Temple, Koby, DO , MPH nervous system 01/09/2019 Z79.891 penitentiary (current) use of opiate analgesic Temple, Koby , DO, MPH 12/11/2018 G89.21 Chronic pain due to trauma Temple, Koby, DO, MPH 12/11/2018 M25.512 Pain in left shoulder Temple, Koby, DO, MPH 12/11/2018 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 Temple, Koby , DO, MPH 12/11/2018 G90.3 Multi-system degeneration of the autonomic Temple, Koby, DO , MPH nervous system 12/11/2018 Z79.891 penitentiary (current) use of opiate analgesic Temple, Koby , DO, MPH 11/12/2018 G89.21 Chronic pain due to trauma Temple, Koby, DO, MPH 11/12/2018 M25.512 Pain in left shoulder Temple, Koby, DO, MPH 11/12/2018 Z79.891 [facility]itentiary (current) use of opiate analgesic Temple, Koby , DO, MPH 11/12/2018 Z79.891 [facility]iary (current) use of opiate analgesic Temple, Koby , DO, MPH 10/29/2018 G89.21 Chronic pain due to trauma Temple, Koby, DO, MPH 10/29/2018 M25.512 Pain in left shoulder Temple, Koby, DO, MPH 10/29/2018 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 Temple, Koby , DO, MPH 10/29/2018 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 Temple, Koby , DO, MPH 10/15/2018 G89.21 Chronic pain due to trauma Temple, Koby, DO, MPH 10/15/2018 M25.512 Pain in left shoulder Temple, Koby, DO, MPH 10/15/2018 Z79.891 penitentiary (current) use of opiate analgesic Temple, Koby , DO, MPH 10/15/2018 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 Symptoms and complaints discussed and reviewed today. No significant changes in physical findings. Continue current medical pain management.M25.512 Pain in left shoulderComments:Chronic. Symptoms and complaints discussed and reviewed today. No significant changes in physical findings. Continue current medical pain management.M99.07 Segmental and somatic dysfunction of upper extremityComments:Chronic. Symptoms and complaints discussed and reviewed today. Somatic dysfunctions noted warrantingOMT to the shoulder. Continue current medical pain management and OMT. Myofascial restrictions. OMTperformed. R.Z79.891 [facility]ent[facility] (current) use of opiate analgesicNew Labs:Urine Drug Screen, Ordered: 03/17/19Comments:Urine drug screen sample taken. Rapid Point of Care Cup was reviewed in office with patient. Will send out UDT Rapid to Quantitative lab for confirmation testing. Urine Drug Testing (UDT) was done today to monitor opiate use and to monitor possible use of illicit substances. I will discuss the results at the next appointment from the Quantitative lab.The following tests were ordered:6 AM, AMPH, AMY, REJI, BUP, CARIS, COCM, COT, ETG, FENT, MCSHSG, OPI, OXY, PCP, TAPEN, XTSY, ZOLP. A urine drug test (UDT) using a rapid screen cup was ordered for this patient and collected on site today. Creatinine has been ordered as well for specimen validity, not for kidney function. Urine Drug Testing is a mandatory component of chronic opioid management, as part of the baseline assessment and ongoing re-assessment of opioid therapy. Per [place] [employer], [place] Non-Acute Pain Medical Treatment Guidelines, section F.3.d.i. This test is to be used in conjunction with other clinical information when decisions are to be made to continue, adjust or discontinue treatment. This information includes clinical observation, results of addiction screening, pill counts, and prescription drug monitoring reports. Preliminary UDT screen results are not final and should not be usedto determine patient care or plan of treatment. This sample will be sent out for a more comprehensive quantitative confirmation LCMS study. It is part of the treatment process of prescribing controlled substances and is considered standard of care at this clinic.AllComments:Continue current medical pain management; injection therapy, osteopathic manipulation, PT / modalities, and consults as needed to manage chronic pain.Non - opioid pain management discussed and optionsdiscussed.Side effects discussed; anticipatory guidance given. Patient clearly understand and agree with all medical treatments and suggestions. All medicines prescribed are adequate and appropriate for this patient's complaint of pain, medical history, physical, and personal goals.Goals of Treatment are to provide adequate and appropriate multidisciplinary medical pain management to increase/ maintain patient's quality of life and functionality while maintaining satisfactory side effect profile andminimizing halfway end-organ damage. Importance of regular nutrition throughout the day discussed.Activity as toleratedContinue with PCP Functional Status Description No Information Available Mental Status Description No Information Available Referrals Description No Information Available
--- OUTSIDE RECORDS SUMMARY | 2019-03-26 17:07 | XMS REPORT | Continuity of Care Document ---
:1955 External Reference #:[id number] Author Name KAYDEN Cain Address [address] [place] [address] Care Team Providers Name Role Phone Kim Sidhu M.D. Care Team Information Head Loader [phone] Problems Active Problems Provider Date Uncomplicated moderate persistent asthma Kallie Leigh M.D. Onset: 04/03 Allergic rhinitis Kallie Leigh M.D. Onset: 11/30/2015 Uncomplicated moderate persistent asthma KAYDEN Hopper Onset: 2014 Angioneurotic edema, subsequent encounter KAYDEN Hopper Onset: 2014 Allergic asthma without status asthmaticus [...] HCL Take 1 To 2 90tabs Elli Mcgrath, 09/26/2018 25mg Tablets AT Bedtime J2EE ARCHITECT-C Tablets as Needed For Itching Epipen 2-Aaron as directed 22pak 995.1 Kallie Joshi 04/29/2013 0.3mg/0.3ML Derrick Leigh Device Glipizide-Metformin Kim [...] Nasonex once a day Charlie, 50mcg/Act Nadira, CIVIL ENGINEER'S AIDE Suspension Ropinirole HCL 1 tablet once a [...] 180mg Tablets Nitroglycerin Lingual as needed Unknown 0.4mg/[place] Solution Albuterol Sulfate 1 neb inh q4h prn 1box Unknown (2.5mg/3ML) 0.083% Nebulizer Buspar 3 tablets once a Unknown 15mg Tablets day Zantac 1 tablet once a Unknown 150mg Tablets day Immunizations CPT Code Status Date Vaccine Lot # [id number] Given 03/20/2013 Pneumococcal Vaccine 56290 Given Unknown Influenza Vaccine 10670 Given Unknown Influenza Vaccine 20212 Given Unknown Influenza Vaccine 52681 Given Unknown Influenza Vaccine 32429 Given Unknown Pneumococcal Conjugate Vaccine 13 Valent [...] Available Procedures Date Code Description Status 02/25/2019 55051 Nitric Oxide Gas Determination Completed 02/25/2019 29436 Pre PFT Completed Medical Devices Description No Information Available Encounters Type Date Location Provider Dx Diagnosis Office Visit 02/25/2019 [facility] Lopez [email or web address].Alejandro Chronic obstructive 10:00a J2EE ARCHITECT-C pulmonary disease, unspecified J30.9 Allergic rhinitis, unspecified J45.40 Moderate persistent asthma, uncomplicated Assessments Date Code Description Provider 02/25/2019 [email or web address].Alejandro Chronic obstructive pulmonary disease, MATTHEW CainP -Hossein unspecified 02/25/2019 J30.9 Allergic rhinitis, unspecified KAYDEN Cain 02/25/2019 J45.40 Moderate persistent asthma, uncomplicated KAYDEN Cain Plan of Treatment Future Appointment(s):07/01/2019 10:00 am - KAYDEN Cain at [place] Hezlxq7402/25/2019 - RENEE Cain-CJ44.9 Chronic obstructive pulmonary disease, lvepxarqmwwF18.9 Allergic rhinitis, idawetzwfawK14.40 Moderate persistent asthma, uncomplicatedFollow up:4 months with EnoRecommendations: Continue all medications as prescribed.Refrain from wearing perfumes/scented colognes while visitingour office. Continue the Spiriva 2.5 mg 2 puffs at night Continue the Symbicort 2 puffs twice a day Continue the Proventil 2 puffs every 4 hours as needed for cough, shortness of breath, wheezing, chest congestion. Monitor Albuterol use. If using more than 2x/week, please call the office as your asthma medications may need to be adjusted. Continue the Nasonex 2 sprays daily PFT done today. Pulmonary Function Studies are done by exhaling (blowing) into a machine to detect an asthmatic condition or other lung problem. Results reviewed severe obstruction Functional Status Description No Information Available Mental Status Description No Information Available Referrals Description No Information Available
--- OUTSIDE RECORDS SUMMARY | 2019-03-26 17:07 | XMS REPORT | Continuity of Care Document ---
:1955 External Reference #:[id number] Author Name Koby Temple DO, MPH Address [address] [place] [address], [address] [place] [address] Problems Description No Information Available Social History Type Date Description Comments Sex Unknown Cigarette Use Former Cigarette Smoker ETOH Use Denies alcohol use Tobacco Use Start: Unknown End: Unknown Patient is a former smoker Smoking Status Reviewed: 02/13/19 Patient is a former smoker Allergies, Adverse [...] Available Vital Signs Date Vital Result Comment 02/13/2019 9:21am BP Systolic 132 mmHg BP Diastolic 84 mmHg Heart Rate 86 /min Respiratory Rate 20 /min Height 64 inches 5'4" Weight 192.00 lb Pain Level 4 Pain at this time. Pain Level With Medicine 4 on average with meds Pain Level Without Medicine 9 without meds BMI (Body Mass Index) 33.0 kg/m2 01/09/2019 9:55am BP Systolic 130 mmHg BP Diastolic 78 mmHg Heart Rate 80 /min Respiratory Rate 20 /min Height 64 inches 5'4" Weight 192.00 lb Pain Level 4 Pain at this time. Pain Level With Medicine 4 on average with meds Pain Level Without Medicine 9 without meds BMI (Body Mass Index) 33.0 kg/m2 Results Description No Information Available Procedures Date Code Description Status 12/11/2018 18185 Test Autonomic Nervous System, Sudomotor Completed 12/11/2018 82623 Test Autonomic Nervous System, Cardiovagal Innervation Completed Medical Devices Description No Information Available Encounters Type Date Location Provider Dx Diagnosis Office Visit 01/09/2019 Main Office as Of Koby Temple DO, G89.21 Chronic pain due 10:15a 2/1/14 MPH to trauma M25.512 Pain in left shoulder Z79.891 shelter (current) use of opiate analgesic G90.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 Z79.891 shelter (current) use of opiate analgesic Office Visit 12/11/2018 9:45a Main Office as Koby Temple G89.21 Chronic pain due Of 07/19/13 DO, MPH to trauma M25.512 Pain in left shoulder 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 G90.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 Office Visit 11/12/2018 11:15a Main Office as Koby Temple G89.21 Chronic pain due Of 07/19/13 DO, MPH to trauma M25.512 Pain in left shoulder 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 Z79.891 shelter (current) use of opiate analgesic Office Visit 10/29/2018 9:30a Main Office as Koby Temple G89.21 Chronic pain due Of 07/19/13 DO, MPH to trauma M25.512 Pain in left shoulder 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 Office Visit 10/15/2018 9:30a Main Office as Koby Temple G89.21 Chronic pain due Of 07/19/13 DO, MPH to trauma M25.512 Pain in left shoulder 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 Z79.891 shelter (current) use of opiate analgesic Office Visit 10/01/2018 10:30a Main Office as Koby Temple G89.21 Chronic pain due Of 2 DO, MPH to trauma M25.512 Pain in left shoulder 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 Office Visit 08/28/2018 10:45a Main Office as Koby Temple G89.21 Chronic pain due Of 07/19/13 DO, MPH to trauma M25.512 Pain in left shoulder 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 Assessments Date Code Description Provider 02/13/2019 G89.21 Chronic pain due to trauma Temple, Koby, DO, MPH 02/13/2019 M25.512 Pain in left shoulder Temple, Koby, DO, MPH 02/13/2019 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 Temple, Koby , DO, MPH 02/13/2019 Z79.891 shelter (current) use of opiate analgesic Temple, Koby , DO, MPH 01/09/2019 G89.21 Chronic pain due to trauma Temple, Koby, DO, MPH 01/09/2019 M25.512 Pain in left shoulder Temple, Koby, DO, MPH 01/09/2019 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 Temple, Koby , DO, MPH 01/09/2019 G90.3 Multi-system degeneration of the autonomic Temple, Koby, DO , MPH nervous system 01/09/2019 Z79.891 shelter (current) use of opiate analgesic Temple, Koby , DO, MPH 12/11/2018 G89.21 Chronic pain due to trauma Temple, Koby, DO, MPH 12/11/2018 M25.512 Pain in left shoulder Temple, Koby, DO, MPH 12/11/2018 Z79.891 shelter (current) use of opiate analgesic Temple, Koby , DO, MPH 12/11/2018 G90.3 Multi-system degeneration of the autonomic Temple, Koby, DO , MPH nervous system 12/11/2018 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 Temple, Koby , DO, MPH 11/12/2018 G89.21 Chronic pain due to trauma Temple, Koby, DO, MPH 11/12/2018 M25.512 Pain in left shoulder Temple, Koby, DO, MPH 11/12/2018 Z79.891 shelter (current) use of opiate analgesic Temple, Koby , DO, MPH 11/12/2018 Z79.891 shelter (current) use of opiate analgesic Temple, Koby , DO, MPH 10/29/2018 G89.21 Chronic pain due to trauma Temple, Koby, DO, MPH 10/29/2018 M25.512 Pain in left shoulder Temple, Koby, DO, MPH 10/29/2018 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 Temple, Koby , DO, MPH 10/29/2018 Z79.891 shelter (current) use of opiate analgesic Temple, Koby , DO, MPH 10/15/2018 G89.21 Chronic pain due to trauma Temple, Koby, DO, MPH 10/15/2018 M25.512 Pain in left shoulder Temple, Koby, DO, MPH 10/15/2018 Z79.891 shelter (current) use of opiate analgesic Temple, Koby , DO, MPH 10/15/2018 Z79.891 shelter (current) use of opiate analgesic Temple, Koby , DO, MPH 10/01/2018 G89.21 Chronic pain due to trauma Temple, Koby, DO, MPH 10/01/2018 M25.512 Pain in left shoulder Temple, Koby, DO, MPH 10/01/2018 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 Temple, Koby , DO, MPH 10/01/2018 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 Symptoms and complaints discussed and reviewed today. No significant changes in physical findings. Continue current medical pain management.M25.512 Pain in left shoulderComments:Chronic. Symptoms and complaints discussed and reviewed today. No significant changes in physical findings. Continue current medical pain management.Z79.891 shelter (current) use of opiate analgesicNew Labs:Urine Drug Screen, Ordered: 02/13/19Comments: Urine drug screen sample taken. Rapid Point of Care Cup was reviewed in office with patient. Will send out UDT Rapid to [facility] lab for confirmation testing. Urine Drug Testing (UDT) was done today to monitor opiate use and to monitor possible use of illicit substances. I will discuss the results at the next appointment from the Quantitative lab.The following tests were ordered:6 AM , AMPH, AMY, REJI, BUP, CARIS, COCM, COT, [...] and ongoing re-assessment of opioid therapy. Per [place] [employer], [place] Non-Acute Pain Medical Treatment Guidelines, section F.3.d.i. [...] while maintaining satisfactory side effect profile andminimizing intermodal truck driver end-organ damage. Importance of regular nutrition throughout the day discussed.Activity as toleratedContinue with PCP Functional Status Description No Information Available Mental Status Description No Information Available Referrals Description No Information Available
--- OUTSIDE RECORDS SUMMARY | 2019-03-26 17:07 | XMS REPORT | Continuity of Care Document ---
:1955 External Reference #:[id number] Author Name Nadira Guerra NP (transmitted by agent of provider Tyra Christianson) Address [address] [facility] [place] [address] Care Team Providers Name Role Phone Kim Sidhu MD - Internal Medicine Care Team Information Radiographic Technologist [phone] Problems Active Problems Provider Date Obstructive sleep [...] mouth every Unknown 81mg day Tablets DR Vanita Unknown Epipen prn Unknown 0.3mg/0.3ML Solution Auto-Inject [...] tid 180tabs Unknown 15mg Tablets History Medications Dexamethasone 1 by mouth every 7tabs Brandon Redman, 11/12/2018 - 2mg Tablets day M.D. 12/02/2018 Prednisone 1 by mouth every 5tabs Brandon Redman, 09/26/2018 - 20mg Tablets day for 5 days M.D. 11/11/2018 Immunizations Description No Information Available Vital Signs Date Vital Result Comment 01/29/2019 8:50am Weight 190.00 lb Height 64.5 inches 5'4.50" BMI (Body Mass Index) 32.1 kg/m2 BP Systolic 127 mmHg BP Diastolic 77 mmHg Heart Rate 79 /min O2 % BldC Oximetry 91 % Body Temperature 97.8 F Pain Level 0 12/03/2018 9:31am Weight 189.00 lb Height 64.5 inches 5'4.50" BMI (Body Mass Index) 31.9 kg/m2 BP Systolic 114 mmHg BP Diastolic 68 mmHg Heart Rate 89 /min O2 % BldC Oximetry 91 % Body Temperature 98.4 F Pain Level 0 Results Description No Information Available Procedures Date Code Description Status 11/12/2018 24262 Tympanometry Completed 11/12/2018 43366 Audiometry, Comprehensive Completed 11/12/2018 51410 Cat Scan Orbit/Ear W/O Contrast,computed tomography Completed 11/12/2018 97801 Cat Scan Orbit/Ear W/O Contrast,computed tomography Completed 11/12/2018 08242 Cat Scan Orbit/Ear W/O Contrast,computed tomography Completed 11/12/2018 00058 Nasal Endoscopy, Diag. Completed 08/08/2018 55375 Laryngoscopy W/ Stroboscopy Completed Medical Devices Description No Information Available Encounters Type Date Location Provider Dx Diagnosis Office Visit 12/03/2018 Main Office Brandon Redman M.D. H93.12 Tinnitus, left ear 9:30a H90.3 Sensorineural hearing loss, bilateral G47.33 Obstructive sleep apnea (adult) (pediatric) Office Visit 11/12/2018 3:30p Main Office Brandon Redman, G47.33 Obstructive sleep M.D. apnea (adult) (pediatric) H93.12 Tinnitus, left ear H90.3 Sensorineural hearing loss, bilateral H69.92 Unspecified Eustachian tube disorder, left ear J31.0 Chronic rhinitis Office Visit 09/26/2018 1:45p Main Office Nadira A G47.33 Obstructive sleep Guerra, [employer] apnea (adult) (pediatric) H93.12 Tinnitus, left ear Office Visit 08/08/2018 10:15a Main Office Brandon Redman M.D. R49.0 Dysphonia K21.9 Gastro-esophageal reflux disease without esophagitis G47.33 Obstructive sleep apnea (adult) (pediatric) Assessments Date Code Description Provider 12/03/2018 H93.12 Tinnitus, left ear Brandon Redman [...] G47.33 Obstructive sleep apnea (adult) (pediatric) Nadira Guerra, NOHEMI 09/26/2018 H93.12 Tinnitus, left ear Nadira Guerra, NOHEMI 08/08/2018 R49.0 Dysphonia Brandon Redman M.D. 08/08/2018 K21.9 Gastro-esophageal reflux disease without Brandon Redman M.D. esophagitis 08/08/2018 G47.33 Obstructive sleep apnea (adult) (pediatric) Brandon Redman M.D. Plan of Treatment Future Appointment(s):02/27/2019 11:00 am - Brandon Redman M.D. at Main [id number] - Brandon Redman M.D.381.81 Eustachian Tube Kmqinbijvvz319.4 Dizziness & amp; Vmouclvye198.10 Hearing Loss Sensorineural Unspec Functional Status Description No Information Available Mental Status Description No Information Available Referrals Description No Information Available
--- OUTSIDE RECORDS SUMMARY | 2019-03-26 17:07 | XMS REPORT | Continuity of Care Document ---
:1955 External Reference #:[id number] Author Name Kim Sidhu M.D. (transmitted by agent of provider Kassi Dyson) Address [address] [place] [address] Problems Active Problems Provider Date Chronic obstructive [...] Vaccine (Fluvirin) 4 Years Of Age Or [id number] Older Q2037 Given 04/06/2014 Influenza Vaccine (Fluvirin) 4 Years Of Age Or [id number] Older Q2038 Given 03/10/2013 Influenza Vaccine (Fluzone) Administered Age 4 [id number] Older Q2037 Given 02/20/2012 Influenza Vaccine (Fluvirin) 4 Years Of Age Or [id number] Older Q2036 Given 03/13/2011 Flulaval [id number] 36445 Given 06/21/2010 [place] [address] Given 02/24/2010 Influenza Vaccine [id number] 36518 Given 02/26/2009 Influenza Vaccine [id number] 81869 Given 03/12/2008 Influenza Vaccine 15029 85646 Given 04/02/2007 Influenza Vaccine 80058 89164 Given 05/31/2006 Influenza Vaccine [id number] 47953 Given 05/17/2005 Influenza Vaccine [id number] 27696 Given 06/18/2003 Tetanus And Diptheria Toxiods Vital [...] Test Result H/L Range Note Inr/Protime 12/30/2018 [facility] Inr 2.23 High 0.82-1.09 1 [address] [place], [place] [id number] [phone] [facility] 11/03/2018 [facility] Glucose 61 mg/dL Low 74-106 2 Metabolic Panel [address] [place], [place] [id number] [phone] BUN 14 mg/dL Normal 7-18 Creatinine 0.8 [...] Phosphatase 87 U/L Normal 45-117 Laboratory 11/03/2018 [facility] C-Reactive 6.8 mg/L High <3.0 test finding [address] Protein,Quant [place], [place] [id number] [phone] [facility] 11/03/2018 [facility] White Blood Count 6.7 K/uL Normal 3.1-10.7 W/Automated [address] Diff [place], [place] [id number] [phone] Red Blood Count 4.19 M/uL Normal 3.90-5.40 [...] 40.4-72.8 Lymph % 21.4 % Normal 20.0-42.0 [place] % 9.1 % Normal 4.3-13.2 Eo% 2.2 % Normal 0.0-6.6 Bas% 0.9 % Normal 0.0-1.1 Immature Grans 0.3 % Normal 0.0-5.0 NRBC % 0.0 /100WBC < 10/ 100 WBC Neut# 4.41 K/uL Normal 1.8-7.0 Lymph # 1.43 K/uL Normal 1.0-4.0 [place] # 0.61 K/uL Normal 0.3-0.9 Eos # 0.15 K/uL Normal 0.0-0.5 Baso # 0.06 K/uL Normal 0.0-0.1 Immature Grans Absolute 0.02 K/uL NRBC # 0.00 K/uL Laboratory test 11/03/2018 [facility] Sedimentation 5 mm/hr Normal 2-45 [address] [place] [address] [phone] Urinalysis With 11/03/2018 [facility] Urine Color YELLOW Yellow Microscopic [address] [place] [address] [phone] Urine Clarity CLEAR Clear Urine Glucose - Dipstick NEGATIVE mg/dL Negative Urine Bilirubin - Dipstick NEGATIVE Negative Urine Ketone NEGATIVE mg/dL Negative Urine Specific Addison 1.010 Normal 1.010-1.030 Urine Blood NEGATIVE Negative [...] CAT <SEE NOTE> 5 Urine Culture 11/03/2018 [facility] Urine Culture KLEBSIELLA Abnormal [address] PNEUM <[place] [address] NOTE> [phone] Quantity > 100,000 CFU/mL 7 Urine Culture URETHRAL BOBBY Quantity 10,000 - 50,000 <SEE NOTE> 8 Klebsiella 11/03/2018 [facility] Nitrofurantoin 256 Resistant Pneumoniae [address] [place] [address] [phone] Trimethoprim/Sulfamethoxazole <=20 Susceptible Ampicillin >=32 Resistant Cefazolin <=4 Susceptible Ampicillin/Sulbactam 16 Intermediate Ciprofloxacin <=0.25 Susceptible Piperacillin/Tazobactam 16 Susceptible Ceftazidime <=1 Susceptible Ceftriaxone <=1 Susceptible Cefepime <=1 Susceptible Levofloxacin 1 Susceptible Imipenem <=0.25 Susceptible Gentamicin <=1 Susceptible Tobramycin <=1 Susceptible Laboratory 11/03/2018 [facility] Occult NEGATIVE Negative 9 test finding [address] Blood,[place] [address] [phone] Laboratory 10/21/2018 [facility] Hemoglobin A1c 6.0 % High 4.0- 5.6 10 test finding [address] (Glyco HGB) [place] [address] [phone] Basic 10/21/2018 [facility] Sodium 140 mmol/L Normal 135-[address] [place] [address] [phone] Potassium 4.8 mmol/L Normal 3.5-5.0 Chloride 103 mmol/L Normal 101-111 Co2 Carbon Dioxide 30 mmol/L Normal 22-32 Anion Gap 7 mmol/L Normal 2-11 Glucose 123 mg/dL High 70-100 Blood Urea Nitrogen 15 mg/dL Normal 6-24 Creatinine 0.84 mg/dL Normal 0.51-0.95 BUN/Creatinine Ratio 17.9 Normal 8-20 Calcium 9.7 mg/dL Normal 8.6-10.3 Egfr Non- 68.7 >60 Egfr 83.1 >60 11 Basic Metabolic 10/08/2018 [facility] Sodium 140 mmol/L Normal 135-[address] [place] [address] [phone] Potassium 4.8 mmol/L Normal 3.5-5.0 Chloride 103 mmol/L Normal 101-111 Co2 Carbon Dioxide 28 mmol/L Normal 22-32 Anion Gap 9 mmol/L Normal 2-11 Glucose 103 mg/dL High 70-100 Blood Urea Nitrogen 14 mg/dL Normal 6-24 Creatinine 0.87 mg/dL Normal 0.51-0.95 BUN/Creatinine Ratio 16.1 Normal 8-20 Calcium 9.4 mg/dL Normal 8.6-10.3 Egfr Non- 66.0 >60 Egfr 79.8 >60 12 Laboratory test 10/08/2018 [facility] Hemoglobin A1c 6.1 % High 4.0-5.6 13 finding [address] (Glyco HGB) [place] [address] [phone] Inr/Protime 09/23/2018 [facility] Inr 2.69 High 0.77-1.[address] [place] [address] [phone] Basic Metabolic 08/19/2018 [facility] Sodium 139 Normal 135- 145 Panel [address] [address] mmol/[place] [address] [phone] Chloride 102 mmol/L Normal 101-111 Co2 Carbon [...] 8 10,000 - 50,000 CFU/mL 9 Method: Casetext Mayda Hemoccult Card 10 Therapeutic target for the treatment of diabetes mellitus patients is <7% HBA1C, and in selective patients <6.0%. Please refer to [place] [employer] diabetic care guidelines for further [...] in selective patients <6.0%. Please refer to [place] [employer] diabetic care guidelines for further [...] dialysis) Procedures Date Code Description Status 03/17/2016 62710801 Colonoscopy Completed 05/27/2015 987808280 Bone Mineral Density Test Completed 05/09/2013 37472004 Mammogram Completed Medical Devices Description No Information Available Encounters Type Date Location Provider Dx Diagnosis Office Visit 01/07/2019 Main Office Kim Sidhu M.D. I73.9 Peripheral vascular 10:30a disease, unspecified J44.9 Chronic obstructive pulmonary disease, unspecified I25.10 Athscl heart disease of [place] coronary artery w/o ang pctrs L03.115 Cellulitis of right lower limb Office Visit 12/30/2018 2:45p Main Office Kim Sidhu I73.9 Peripheral vascular M.D. disease, unspecified I25.10 Athscl heart disease of [place] coronary artery w/o ang pctrs J44.9 Chronic obstructive pulmonary disease, unspecified L03.115 Cellulitis of right lower limb E11.9 Type 2 diabetes mellitus without complications Office Visit 11/05/2018 3:15p Main Office Kim Sidhu I73.9 Peripheral vascular M.D. disease, unspecified N39.0 Urinary tract infection, site not specified Office Visit 09/30/2018 1:30p Main Office Kim Sidhu M.D. I25.10 Athscl heart disease of [place] coronary artery w/o ang pctrs E11.9 Type 2 diabetes mellitus without complications J44.9 Chronic obstructive pulmonary disease, unspecified Office Visit 08/26/2018 11:45a Main Office Kim Sidhu M.D. I25.10 Athscl heart disease of [place] coronary artery w/o ang pctrs E11.9 Type 2 diabetes mellitus without complications J44.9 Chronic obstructive pulmonary disease, unspecified H66.92 Otitis media, unspecified, left ear Office Visit 08/14/2018 10:45a Main Office [place]44.9 Chronic obstructive M.D. pulmonary disease, unspecified E11.9 Type 2 diabetes mellitus without complications I25.10 Athscl heart disease of [place] coronary artery w/o ang pctrs E87.6 Hypokalemia Assessments Date Code Description Provider 02/06/2019 H66.92 Otitis media, unspecified, left ear Kim Sidhu M.D. 02/06/2019 I95.1 Orthostatic hypotension Kim Sidhu M.D. 02/06/2019 Z79.01 care home (current) use of anticoagulants Kim Sidhu M.D. 01/07/2019 I73.9 Peripheral vascular disease, unspecified Kim Sidhu M.D. 01/07/2019 J44.9 Chronic obstructive pulmonary disease, Kim Sidhu M.D. 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 12/30/2018 I73.9 Peripheral vascular disease, unspecified Kim Sidhu M.D. 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 artery without angina [...] M.D. 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 09/30/2018 J44.9 Chronic obstructive pulmonary disease, Kim Sidhu M.D. 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 08/26/2018 J44.9 Chronic obstructive pulmonary disease, Kim Sidhu M.D. unspecified 08/26/2018 H66.92 Otitis media, unspecified, left ear Kim Sidhu M.D. 08/14/2018 J44.9 Chronic obstructive pulmonary disease, Kim Sidhu M.D. unspecified 08/14/2018 E11.9 Type 2 diabetes mellitus without complications Kim Sidhu M.D. 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 Plan of Treatment Future Appointment(s):03/25/2019 10:30 am - Kim Sidhu M.D. at Main [id number] - Kim Sidhu M.D.H66.92 Otitis media, unspecified, left earI95.1 Orthostatic haiisikjywrO15.01 care home (current) use of anticoagulantsFollow up :Followup:. (Follow up) Functional Status Description No Information Available Mental Status Description No Information Available Referrals Description No Information Available
--- OUTSIDE RECORDS SUMMARY | 2019-03-26 17:07 | XMS REPORT | Continuity of Care Document ---
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 Onset: Retention of urine Selvin Wang M.D. Onset: 02/08/2018 Kidney stone Selvin Wang M.D. Onset: 12/06/2017 Social History Type Date Description Comments Sex Unknown Tobacco Use Start: Unknown End: Quit 2002 Unknown ETOH Use Denies alcohol use Recreational Drug Use Denies Drug Use Tobacco Use Start: Unknown End: Patient is a former smoker Unknown Smoking Status Reviewed: 02/04/19 Patient is a former smoker Enjoy Exercising Patient enjoys exercising Exercise Type/Frequency Exercises regularly Tattoo/Piercing Negative For Tattoo Allergies, Adverse Reactions, Alerts Active Allergies Reaction Severity Comments Date Penicillin rash & swelling 08/03/2010 Wellbutrin rash & swelling 08/03/2010 Sulfa Antibiotics RASH, SWELLING 08/03/2010 Silvadene RASH & SWELLING 08/03/2010 Medications Active Medications SIG Qnty Indications Ordering Date Provider Incruse Ellipta take 1 puff once 30units Harish West, 02/04/2019 daily. 62.5mcg/Inh Aerosol Symbicort inhale two puffs 10.2units J44.9 Harihs West, 08/20/2017 80-4.5mcg/Act by mouth twice a MD Aerosol day. rinse mouth after use Ventolin HFA Kim Sidhu, 108(90Base) mcg/Act Aerosol Albuterol Sulfate nebulized every Unknown 4-6 hours as (2.5mg/3ML) 0.083% needed Nebulizer Azithromycin Take 2 Tablets Unknown 250mg By Mouth On Day Tablets 1 And Then Take 1 Tablet By Mouth Once A Day On Day 2 Through Day 5 Cilostazol 1 tab by mouth Unknown 50mg Tablets twice a day Nitrofurantoin 1 by mouth every 90caps Kathleen, Macrocrystal day Derrick Montalvo 50mg Capsules Lisinopril 1 q day Royce Roman, 2.5mg MSharonDSharon Tablets Epinephrine inject as needed Unknown for severe 0.15mg/0.3ML Solution allergic Auto-Inject reaction Benadryl Allergy 1 by mouth every Unknown 25mg 6 hours as Tablets needed for hives. Furosemide 1 by mouth every Unknown 40mg Tablets day Coreg 1 by mouth twice Unknown 6.25mg Tablets a day Aspir-Low 1 by mouth every Unknown 81mg Tablets day Oxymorphone HCL 1 po q 8 hours Unknown 5mg as needed Tablets Nasonex as needed Unknown 50mcg/Act Suspension Vitamin B-12 1 by mouth every Unknown 1000mcg day Tablets Pantoprazole Sodium 1 by mouth every Unknown day 40mg Tablets Ropinirole HCL take one tablet Unknown 1mg by mouth every Tablets night Glipizide-Metformin 1 tab po qd Unknown HCL 5-500mg Tablets Simvastatin 1 by mouth every Unknown 5mg Tablets day Warfarin Sodium take one tablet Unknown 5mg by mouth every Tablets day or as directed Alpha-Lipoic Acid 1 tab four times Unknown 200mg a day Capsules Hydroxyzine HCL 1 po qhs Unknown 25mg Tablets Multivitamins 1 po qd Unknown Tablets Buspirone HCL po tid Unknown 15mg Tablets Immunizations Description No Information Available Vital Signs Date Vital Result Comment 02/04/2019 8:52am BP Systolic Sitting Left Arm 118 mmHg BP Diastolic Sitting Left Arm 68 mmHg Heart Rate 76 /min Respiratory Rate 18 /min Height 64 inches 5'4" Weight 189.00 lb BMI (Body Mass Index) 32.4 kg/m2 BSA (Body Surface Area) 1.91 m2 [place] body weight in kilograms 54 kg O2 % BldC Oximetry 94 % Ora, O2 Saturation Level with Exercise 91 % Ra 11/21/2018 9:26am BP Systolic 126 mmHg BP Diastolic 71 mmHg Body Temperature 98.3 F Heart Rate 71 /min Respiratory Rate 16 /min Height 64 inches 5'4" Weight 186.00 lb BMI (Body Mass Index) 31.9 kg/m2 BSA (Body Surface Area) 1.90 m2 [place] body weight in kilograms 54 kg O2 % BldC Oximetry 91 % Pain Level 0 Results Description No Information Available Procedures Date Code Description Status 12/23/2018 62856 Spirometry Completed 09/28/2010 [id number] Mammogram Completed 12/16/2009 073480713 Bone Mineral Density Test Completed 09/27/2008 [id number] Mammogram Completed Medical Devices Description No Information Available Encounters Type Date Location Provider Dx Diagnosis Office Visit 02/04/2019 Pulmonology Sharla Quintero PA J44.9 Chronic obstructive 9:00a pulmonary disease, unspecified F17.211 Nicotine dependence, cigarettes, in remission G47.33 Obstructive sleep apnea (adult) (pediatric) Office Visit 11/21/2018 10:30a Urology Selvin Wang, R33.8 Other retention of M.D. urine N31.9 Neuromuscular dysfunction of bladder, unspecified N20.0 Calculus of kidney Assessments Date Code Description Provider 02/04/2019 J44.9 Chronic obstructive pulmonary disease, Sharla Quintero PA unspecified 02/04/2019 F17.211 Nicotine dependence, cigarettes, in Sharla Quintero PA remission 02/04/2019 G47.33 Obstructive sleep apnea (adult) (pediatric) Sharla Quintero PA 01/03/2019 J44.9 Chronic obstructive pulmonary disease, Harish West MD unspecified 11/21/2018 R33.8 Other retention of urine Selvin Wang M.D. 11/21/2018 N31.9 Neuromuscular dysfunction of bladder, Selvin Wang M.D. unspecified 11/21/2018 N20.0 Calculus of kidney Selvin Wang M.D. Plan of Treatment Future Appointment(s):08/07/2019 9:00 am - Sharla Quintero PA at [id number]/ 09/2020 9:30 am - Selvin Wang M.D. at [id number]/04/2019 - Sharla Quintero PAJ44.9 Chronic obstructive pulmonary disease, unspecifiedComments:Avoid pollution, fumes and second hand smoke.Drink at least 10 glasses fluid daily. You should alsoget the flu shot every fall and the pneumonia vaccine at least once. Infections like the flu and pneumonia can hurt your lungs. It's important to try to prevent them.Stop the Spiriva 2.5 mcg 2 puffs daily CHANGED TO INCRUSE ONE PUFF DAILY.Continue the Symbicort 80/4.5 mcg 2 puffs twice daily, and Albuterol with nebulizer as needed for cough. Oxygen 2L at bedtime.Follow up :6 mmmhlaJ73.211 Nicotine dependence, cigarettes, in remissionComments:Does not meet lung cancer screening guidelines. Quit 1147S12.33 Obstructive sleep apnea ( adult) (pediatric)Comments:Continue CPAP every night.AllNew Medication:Incruse Ellipta 62.5 mcg/Inh - take 1 puff once daily. Goals 02/04/2019 - Sharla Quintero PAJ44.9 Chronic obstructive pulmonary disease, unspecifiedMaintain activity level despite shortness of breath. Improve exercise capacity. Reduce frequency andseverity of exacerbations(flare-ups). Prolong survival and improve quality of life. Functional Status Description No Information Available Mental Status Description No Information Available Referrals Description No Information Available
--- OUTSIDE RECORDS SUMMARY | 2019-03-26 17:07 | XMS REPORT | Continuity of Care Document ---
:1955 External Reference #:[id number] Author Name Brandon Redman M.D. 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 02/27/2019 Suspension rebate: rxbin: [id number], rxpcn: [email or web address], rxgrp: [id number], analytical scientist: [id number]), id# [id number] Dexamethasone 1 by mouth every 7tabs Brandon Redman, 11/12/2018 - 2mg Tablets day M.D. 12/02/2018 Prednisone 1 by mouth every 5tabs Brandon Redmna, 09/26/2018 - 20mg Tablets day for 5 days M.D. 11/11/2018 Immunizations Description No Information Available Vital Signs Date Vital Result Comment 02/27/2019 10:56am Weight 188.00 lb Height 64.5 inches 5'4.50" BMI (Body Mass Index) 31.8 kg/m2 BP Systolic 167 mmHg BP Diastolic 85 mmHg Heart Rate 99 /min O2 % BldC Oximetry 90 % Body Temperature 97.4 F Pain Level 0 01/29/2019 8:50am Weight 190.00 lb Height 64.5 inches 5'4.50" BMI (Body Mass Index) 32.1 kg/m2 BP Systolic 127 mmHg BP Diastolic 77 mmHg Heart Rate 79 /min O2 % BldC Oximetry 91 % Body Temperature 97.8 F Pain Level 0 Results Description No Information Available Procedures Date Code Description Status 01/16/2019 79593 Tympanostomy, Gen. Anesth. Completed 01/16/2019 62515 Anesthesia, Tympanotomy Completed 11/12/2018 10573 Tympanometry Completed 11/12/2018 33068 Audiometry, Comprehensive Completed 11/12/2018 13688 Cat Scan Orbit/Ear W/O Contrast,computed tomography Completed 11/12/2018 34182 Cat Scan Orbit/Ear W/O Contrast,computed tomography Completed 11/12/2018 06269 Cat Scan Orbit/Ear W/O Contrast,computed tomography Completed 11/12/2018 02143 Nasal Endoscopy, Diag. Completed Medical Devices Description No Information Available Encounters Type Date Location Provider Dx Diagnosis Office Visit 12/03/2018 Main Office Brandon Redman M.D. H93.12 Tinnitus, left ear 9:30a H90.3 Sensorineural hearing loss, bilateral G47.33 Obstructive sleep apnea (adult) (pediatric) Office Visit 11/12/2018 3:30p Main Office Brandon Redman G47.33 Obstructive sleep M.DSharon apnea (adult) (pediatric) H93.12 Tinnitus, left ear H90.3 Sensorineural hearing loss, bilateral H69.92 Unspecified Eustachian tube disorder, left ear J31.0 Chronic rhinitis Office Visit 09/26/2018 1:45p Main Office Nadira Han G47.33 Obstructive sleep NOHEMI Guerra apnea (adult) (pediatric) H93.12 Tinnitus, left ear Assessments Date Code Description Provider 01/29/2019 H93.12 Tinnitus, left ear Nadira Guerra [...] ear Nadira Guerra NP Plan of Treatment No Information Available Functional Status Description No Information Available Mental Status Description No Information Available Referrals Description No Information Available
[2019-03-26] MEDS ORDERED: Aspirin TAB* 325 MG PO ONE (17:21)
[2019-03-26 17:25] LABS: ALT 37 U/L (7-52); AST 40 U/L (13-39); Albumin 4.7 g/dL (3.2-5.2); Albumin/Globulin Ratio 2.1 (1-3); Alkaline Phosphatase 126 U/L (34-104); Anion Gap 11 mmol/L (2-11); BUN/Creatinine Ratio 9.5 (8-20); Blood Urea Nitrogen 11 mg/dL (6-24); CO2 Carbon Dioxide 27 mmol/L (22-32); Calcium 10.2 mg/dL (8.6-10.3); Chloride 103 mmol/L (101-111); EGFR African American 57.1 (>60); EGFR Non-African American 47.2 (>60); Globulin 2.2 g/dL (2-4); Glucose 123 mg/dL (70-100); Magnesium 1.7 mg/dL (1.9-2.7); Potassium 4.1 mmol/L (3.5-5.0); Sodium 141 mmol/L (135-145); Total Protein 6.9 g/dL (6.4-8.9)
[2019-03-26 17:29] LABS: Troponin I 0.15 ng/mL (<0.04)
[2019-03-26] MEDS ORDERED: Nitroglycerin TAB 0.4 MG* 0.4 MG TAB SL ONE (17:53)
[2019-03-26 19:07] LABS: INR 2.31 (0.82-1.09)
[2019-03-26] MEDS ORDERED: Oxymorphone IR (NF) 5 MG TAB PO PRN (20:39)
[2019-03-26 20:51] LABS: Troponin I 0.24 ng/mL (<0.04)
[2019-03-26] MEDS ORDERED: hydrOXYzine HCL TAB* 25 MG PO SCH (21:00)
[2019-03-26] MEDS ORDERED: Albuterol/Ipratropium NEB.SOL* Albuterol 2.5 MG/Ipratropium 0.5 MG 3 ML INH PRN (21:28)
[2019-03-26] MEDS ORDERED: Mometasone/Formoter 100/5 MDI INH SCH (23:00)
[2019-03-26] MEDS ORDERED: busPIRone TAB* 15 MG PO SCH (23:30)
[2019-03-26] MEDS ORDERED: rOPINIRole TAB* 1 MG PO SCH (23:30)
[2019-03-27] MEDS ORDERED: Magnesium Sulfate 1 GM IV* 1 GM/100 ML BAG IV ONE (00:05)
[2019-03-27] MEDS: ALPHA LIPOIC ACID 200 MG PO SCH ×2 (00:10→09:01)
[2019-03-27] MEDS: Cilostazol TAB* 100 MG PO SCH ×2 (00:27→08:52)
[2019-03-27] MEDS: Carvedilol TAB* 6.25 MG PO SCH ×2 (00:28→08:51)
[2019-03-27] MEDS: busPIRone TAB* 5 MG PO SCH ×2 (00:28→08:51)
[2019-03-27 00:41] LABS: Troponin I 0.19 ng/mL (<0.04)
--- NOTE | 2019-03-27 00:45 | HP ---
CC: Kim Sidhu MD; Dr. Roman, Cardiology * ADMISSION HISTORY AND PHYSICAL: DATE OF ADMISSION: 03/26/19 CHIEF COMPLAINT: Chest pain and dizziness. HISTORY OF PRESENT ILLNESS: This is a 64-year-old female with extensive history including coronary artery disease, status post bypass grafting; history of mitral valve disease, status post porcine valve replacement; history of arterial thrombus on her right lower extremity, who came in with chest pain. The patient stated that when she has had episodes of chest pain, which hurts her to be dizzy and short of breath and even having syncopal episode. The first episode was in November and the second episode was 3 weeks later in December. Both of these episodes ended up with her completely passing out, but she did not seek any medical attention at that point. Today, she went to eat and had to go to the bathroom and she was feeling severely dizzy, had to hold on to the rail to prevent her from falling. Accompanied by severe substernal chest pain radiating to her left arm, it felt like a pressure 10/10 in intensity. Nitroglycerin that she took helped her. Accompanied by some cough and felt like her legs were more swollen. She denied any orthopnea or paroxysmal nocturnal dyspnea and so she came into the ER for further evaluation. She otherwise denies any abdominal pain. She did have some mild nausea, but no vomiting. No diarrhea, denies any other urinary burning sensation or pain with urination. PAST MEDICAL HISTORY: Includes: 1. Coronary artery disease, status post 3-vessel bypass grafting and a recent cardiac cath in 2018 showed everything patent. She never required any stenting after that. 2. Severe mitral regurgitation, status post porcine valve replacement. 3. History of peripheral arterial disease, status post clot in the left leg; left atrial appendage clot, on Coumadin. 4. Questionable history of AFib, on Coumadin. 5. Type 2 diabetes, non-insulin dependent. 6. COPD, on 2 L nasal cannula only at bedtime. 7. Obstructive sleep apnea, on CPAP at night time. 8. Chronic congestive heart failure, last recorded EF from May 2018 showed an EF of 25% to 30%, was on a LifeVest, but this was subsequently discontinued. 9. History of depression and anxiety and chronic pain secondary to shoulder injury, on oxymorphone. 10. History of rectal cancer, status post chemoradiation in 2009. 11. History of cervical cancer as well. 12. History of urinary incontinence requiring a sling procedure; recently noted to have urinary obstruction, on self catheterization. 13. History of recent UTI, status post treatment. 14. History of hypertension. 15. Dyslipidemia. 16. Restless legs with history of DVTs. HOME MEDICATIONS: 1. Ferrous sulfate oral daily. 2. Multivitamin 1 tablet oral daily. 3. Lisinopril 2.5 mg oral daily. 4. Vitamin B12 of 1000 mcg oral daily. 5. Aspirin 81 mg oral daily. 6. Protonix 40 mg oral daily. 7. Melatonin 5 mg oral daily. 8. Lasix 40 mg oral daily. 9. Coreg 6.25 mg p.o. b.i.d. 10. Propranolol 1 mg p.o. at bedtime. 11. Spiriva 4 mg by inhalation b.i.d. 12. BuSpar 15 mg p.o. t.i.d. 13. Glipizide with metformin 1 tablet oral daily. 14. Zocor 5 mg oral daily. 15. Budesonide 1 puff inhalation twice a day. 16. Ventolin HFA 2.5 mg inhalation q.6 hours p.r.n. 17. Incruse Ellipta 1 puff by inhalation daily. 18. Coumadin 4.5 mg oral daily. 19. Macrodantin 50 mg oral daily p.r.n. 20. Cilostazol 50 mg p.o. b.i.d. 21. Alpha linoleic acid 200 mg p.o. 4 times a day. 22. Hydroxyzine 25 mg at bedtime. 23. Oxymorphone 5 mg q.8 hours p.r.n. ALLERGIES: The patient is allergic to WELLBUTRIN, LIDOCAINE, PENICILLIN, SHELLFISH, SILVER SULFADIAZINE, and SULFA ANTIBIOTICS. FAMILY HISTORY: Father had Parkinson's disease, dementia, heart disease and pacemaker. Mother had CT and emphysema. SOCIAL HISTORY: She lives with her . Denies any alcohol or drug use. She is a former smoker quit in 2002, prior to that had 2 pack a year history of smoking for roughly 15 years. She is full code. Her is her healthcare proxy. REVIEW OF SYSTEMS: A 14-point review of systems did not reveal any new information other than what is mentioned in the HPI. PHYSICAL EXAMINATION GENERAL: The patient is awake, alert, oriented to time, place and person. She was noted to be in no acute distress. VITAL SIGNS: BP was noted to be 144/83, heart rate 92, respiration rate 14, saturating 94% on 2 L nasal cannula, temperature was noted to be 97.8. HEAD AND NECK: Atraumatic, normocephalic. Bilateral pupils are reactive. Neck is supple. No jugular venous distention. LUNGS: Clear to auscultation bilaterally. No wheezing, rhonchi, or rales. HEART: S1, S2. Systolic murmur heard. ABDOMEN: Obese, soft, nontender, nondistended. EXTREMITIES: No cyanosis, clubbing, or edema. DIAGNOSTIC STUDIES/LAB DATA: CBC was unremarkable. Coagulation profile shows INR to be subtherapeutic at 2.31. VBG shows pH of 7.40, pCO2 of 40, saturation of 53%. Comprehensive metabolic panel shows elevated creatinine at 1.16 and random glucose elevated at 123. Magnesium was noted to be low at 1.7. Elevated total bili of 1.1. Troponin was noted to be elevated at 0.15. Portable chest x-ray was read as no acute cardiopulmonary process. EKG: There were 2 EKGs that were done in the ER, which showed a sinus rhythm with few PVCs, noted to have a right bundle branch block. No significant ST elevation. When compared to her older EKG, the baseline rhythm was noted to be similar. IMPRESSION: This is a 64-year-old female with significant cardiac risk factors came in with chest pain, noted to have minimally elevated troponin. Dr. Hill was consulted by the ER physician, who did not think there was any significant change in the EKG. We will admit the patient for chest pain rule out. ASSESSMENT AND PLAN: 1. Chest pain. Minimally elevated troponin. The patient is already on Coumadin, so we will not be able to anticoagulate her much. If her troponin increases to 0.5, we will recall the Cardiology to see if she would benefit from any addition of Plavix or heparin drip infusion. Cardiology will decide if the patient would benefit from any stress test. For now, I will only do an echocardiogram. 2. Acute kidney injury, likely secondary to diuretic use. We will hold diuretics for tonight. 3. History of coronary artery disease, status post coronary artery bypass graft. We will restart home medications. 4. History of peripheral artery disease. Restart cilostazol. 5. History of type 2 diabetes, on fingerstick monitoring and sliding scale. 6. History of chronic obstructive pulmonary disease. Restart her inhalers and we will add p.r.n. nebulization. 7. History of deep vein thrombosis, arterial thrombus and mitral valve repair, on Coumadin. We will continue with Coumadin with daily INRs. 8. History of depression and anxiety. Restart her home medication. 9. History of hypertension. Restart BP medication. 10. History of hyperlipidemia. We will start statin. We will check a lipid panel in the morning. 11. History of restless leg syndrome. Continue Requip. 12. History of gastroesophageal reflux disease. Continue her proton pump inhibitor. 13. DVT prophylaxis. The patient is already on therapeutic Coumadin. 14. Code status. The patient is full code. [id number]/CPS #: [id number] MTDD
[2019-03-27] MEDS: Mometasone/Formoter 100/5 MDI INH SCH ×2 (03:37→07:39)
[2019-03-27 04:10] LABS: Troponin I 0.15 ng/mL (<0.04)
[2019-03-27 05:20] LABS: ABS Lymphocytes 1.1 10^3/ul (1.0-4.8); ABS Monocytes 0.1 10^3/ul (0-0.8); ABS Neutrophils 6.2 10^3/ul (1.5-7.7); Hematocrit 40 % (35-47); Hemoglobin 13.9 g/dL (12.0-16.0); Lymphocyte % 14.3 %; Mean Corpuscular HGB Conc 35 g/dL (31-36); Mean Corpuscular Hemoglobin 31 pg (27-31); Mean Corpuscular Volume 88 fL (80-97); Mean Platelet Volume 7.2 fL (7.4-10.4); Nucleated Red Blood Cells % 0.1; Platelet Count 203 10^3/uL (150-450); Red Cell Distribution Width 16 % (10-15); White Blood Count 7.4 10^3/uL (3.5-10.8)
[2019-03-27 05:24] LABS: INR 2.08 (0.82-1.09)
[2019-03-27 05:33] LABS: Anion Gap 9 mmol/L (2-11); BUN/Creatinine Ratio 15.9 (8-20); Blood Urea Nitrogen 17 mg/dL (6-24); CO2 Carbon Dioxide 25 mmol/L (22-32); Calcium 9.7 mg/dL (8.6-10.3); Chloride 103 mmol/L (101-111); Cholesterol 154 mg/dL; EGFR African American 62.7 (>60); EGFR Non-African American 51.8 (>60); Glucose 204 mg/dL (70-100); HDL Cholesterol 57.3 mg/dL; LDL Cholesterol 84 mg/dL; Magnesium 2.1 mg/dL (1.9-2.7); Potassium 4.3 mmol/L (3.5-5.0); Sodium 137 mmol/L (135-145); Triglycerides 66 mg/dL
[2019-03-27 05:48] LABS: Troponin I 0.13 ng/mL (<0.04)
[2019-03-27] MEDS ORDERED: Dextrose 50% VIAL 50 ml IV PUSH PRN (08:10)
[2019-03-27] MEDS ORDERED: Perflutren Lipid Microsphere* 3 ML VIAL ONE (08:20)
[2019-03-27] MEDS ORDERED: Multivitamins/Minerals TAB PO SCH (09:00)
[2019-03-27] MEDS ORDERED: Aspirin EC TAB* 81 MG TAB.EC PO SCH (09:00)
[2019-03-27] MEDS ORDERED: Pantoprazole TAB * 40 MG TAB PO SCH (09:00)
[2019-03-27] MEDS ORDERED: Lisinopril TAB* 5 MG PO SCH (09:00)
[2019-03-27] MEDS ORDERED: Cyanocobalamin TAB* 500 MCG PO SCH (09:00)
[2019-03-27] MEDS ORDERED: Umeclidinium 62.5 MDI(NF) MDI INH SCH (09:00)
[2019-03-27] MEDS ORDERED: FERROUS SULFATE 27 MG PO SCH (09:00)
[2019-03-27] MEDS ORDERED: Warfarin TAB(*) 3 MG PO SCH (09:00)
[2019-03-27] MEDS: CMCS:Simvastatin TAB(NF) 10 MG TAB PO SCH ×2 (09:02→10:38)
--- NOTE | 2019-03-27 09:45 | ECHO ---
*[facility]* [place] [address] Fax #: [phone] Transthoracic Echocardiogram Patient: Keila Wilkerson : 1955 Study Date: 03/27/2019 Age: 64 Gender: F HR: 82 bpm Height: 66 in /167.6 cm BSA: 1.94 m^2 Weight: 186.6 lb /84.8 kg BMI: 30.2 kg/m^2 *First Aid Trainer: Stephanie Rodriguez [facility] *Referring Physician: * Mj Porter *Reading Physician: * Guillermo Alegre MD Indications: Chest Pain, unspecified. History: Coronary artery disease. Congestive heart failure. Risk factors: Hypertension. Diabetes mellitus. Dyslipidemia. Labs, prior tests, procedures, and surgery: Coronary artery bypass grafting. Mitral valve repair. Conclusions Summary: - Left ventricle: The cavity size is at the upper limits of normal. Wall thickness is normal. Systolic function is normal. The estimated ejection fraction is 30-35%. Systolic function is worse from the study of September 2018. - Right ventricle: Systolic function is mildly to moderately reduced. Overall RV function is worse in comparison with the study of September 2018. - Ventricular septum: Postoperative hypokinesis of the interventricular septum is observed. - Left atrium: The atrium is mildly dilated. - Mitral valve: Prior procedures include surgical repair. The findings are consistent with mild stenosis. There is trace regurgitation. The mean diastolic gradient is 6.0 mm Hg. The valve area is 1.0 cm^2. The valve area by pressure half-time is 4.0 cm^2. - Tricuspid valve: There is mild regurgitation. Study data: Transthoracic echocardiogram. Procedure: Transthoracic echocardiography was performed. Image quality was adequate. Intravenous Definity , 3 mlswas administered. Complete 2D, spectral Doppler, and color flow Doppler. Location: Bedside. Patient status: Inpatient. Patient room number: 446 02. The previous study was not available, so comparison is made to the report of September 2018. Rhythm: Normal sinus rhythm with PVC's. Findings Left ventricle: The cavity size is at the upper limits of normal. Wall thickness is normal. Systolic function is normal. The estimated ejection fraction is 30-35%. Systolic function is worse from the study of September 2018. Regional wall motion abnormalities: Akinesis of the basal anteroseptal and mid anterolateral myocardium; hypokinesis of the mid-apical anterior, mid anteroseptal, mid inferolateral, and apical lateral myocardium; moderate hypokinesis of the mid inferoseptal and mid inferior myocardium. Left ventricular diastolic function parameters are indeterminate. Right ventricle: The cavity size is normal. Systolic function is mildly to moderately reduced. Overall RV function is worse in comparison with the study of September 2018. Ventricular septum: Postoperative hypokinesis of the interventricular septum is observed. Left atrium: The atrium is mildly dilated. Right atrium: The atrium is at the upper limits of normal in size. Mitral valve: Prior procedures include surgical repair. The findings are consistent with mild stenosis. There is trace regurgitation. Aortic valve: The valve is trileaflet. The leaflets are normal thickness. There is no evidence of stenosis. There is no significant regurgitation. Tricuspid valve: The leaflets are normal thickness. There is no evidence of stenosis. There is mild regurgitation. Pulmonic valve: The leaflets are normal thickness. There is no evidence of stenosis. There is no significant regurgitation. Aorta: Ascending aorta: The ascending aorta is poorly visualized. Aortic arch: The aortic arch is poorly visualized. The aortic root appears normal. Pericardium: There is no significant pericardial effusion. Pulmonary arteries: The main pulmonary artery is normal-sized. Systolic pressure is within the normal range. Systemic veins: Inferior vena cava: The vessel is normal in size. There is (>= 50%) respiratory change in the IVC dimension. Measurements Left ventricle Value Ref Aortic valve continued Value Ref ANAMARIA, LAX 5.1 cm 3.8 - 5.2 VTI, S 30.3 cm ----- ESD, LAX (H) 4.5 cm 2.2 - 3.5 Mean grad, S 3.0 mm Hg ----- FS, LAX (L) 12 % 27 - 45 Peak grad, S 7.0 mm Hg ----- PW, ED, LAX 0.9 cm 0.6 - 0.9 SLY, VTI 1.40 cm^2 ----- EF (L) 26 % 54 - 74 SLY, Vmax 1.41 cm^2 ----- E', lat deborah, TDI (L) 7.4 cm/sec >=10.0 E/e', lat deborah, 19 Mitral valve Value Ref TDI Peak E 1.42 m/sec ----- Peak A 1.46 m/sec ----- LVOT Value Ref Decel time 124 ms ----- Diam, S 2.00 cm PHT 55 ms ----- Area 3.1 cm^2 Mean grad, D 6.0 mm Hg ----- Peak angie, S 0.6 m/sec Peak grad, D 13.0 mm Hg ----- Mean grad, S 1 mm Hg Peak E/A ratio 1 ----- MVA, PHT 4.0 cm^2 ----- Ventricular septum Value Ref IVS, ED 0.9 cm 0.6 - 0.9 Pulmonic valve Value Ref Peak v, S 0.81 m/sec ----- Right ventricle Value Ref Peak grad, S 3.0 mm Hg ----- ANAMARIA, LAX 3.3 cm Pressure, S 29 mm Hg Tricuspid valve Value Ref TR peak v 2.31 m/sec <=2.8 Left atrium Value Ref Peak RV-RA grad, S 21 mm Hg ----- AP dim, ES (H) 4.10 cm 2.70 - 3.80 Aortic root Value Ref ML dim, A4C 4.9 cm Root diam 2.6 cm <4.1 SI dim, A4C 5.9 cm Vol/bsa, ES, 1-p 33 ml/m^2 11 - 40 Decending aorta Value Ref A4C Vanita peak angie 0.9 m/sec ----- Right atrium Value Ref Pulmonary artery Value Ref SI dim, ES 5.3 cm 3.4 - 5.3 Pressure, S 26.0 mm Hg ----- ML dim, ES, A4C 4.0 cm 2.6 - 4.4 Estimated RAP 8 mm Hg Inferior vena cava Value Ref Diam 1.8 cm ----- Aortic valve Value Ref Deborah diam, ED 2.2 cm Peak v, S 1.34 m/sec Legend: (L) and (H) seven values outside specified reference range. Prepared and electronically signed by Guillermo Alegre MD 03/27/2019 09:44
[2019-03-27] MEDS ORDERED: Loperamide CAP* 2 MG PO PRN (10:07)
--- NOTE | 2019-03-27 10:26 | PN ---
Subjective Date of Service: 03/27/19 Interval History: Ms. Wilkerson is feeling much better this morning. She is sitting on the side of the bed, just finished breakfast. She has not had any chest pain since coming into the ED. No SOB or diaphoresis. She is feeling some palpitations this morning. No dizziness or syncope. Nursing reports frequent bursts of VT overnight and this morning. Tele: NSR in the 90s with frequent nonsustained VT. Family History: Unchanged from Admission Social History: Unchanged from Admission Past Medical History: Unchanged from Admission Objective Active Medications: Albuterol/Ipratropium (Duoneb (Albuterol 2.5 Mg/Ipratropium 0.5 Mg)) 1 neb INH Q4H PRN SOB/WHEEZING Aspirin (Aspirin Ec Tab*) 81 mg PO DAILY [place] Buspirone HCl (Buspar Tab*) 15 mg PO TID [place] Carvedilol (Coreg Tab*) 6.25 mg PO BID [place] Cilostazol (Pletal Tab*) 50 mg PO BID [place] Cyanocobalamin (Vitamin B12 Tab*) 1,000 mcg PO DAILY [place] Dextrose (Dextrose 50% Vial 50 Ml*) 25 ml IV PUSH .FOR FS < 60 - SS PRN FS < 60 Insulin Human Lispro (Humalog*) 0 units SUBCUT ACHS [place]; Protocol Lisinopril (Prinivil Tab*) 2.5 mg PO DAILY [place] Loperamide HCl (Imodium Cap*) 2 mg PO .SEE DIRECTIONS PRN DIARRHEA Melatonin (Melatonin) 6 mg PO BEDTIME [place] Mometasone Furoate/Formoterol Fumar (Dulera 100/5 Mdi*) 2 puff INH RT.BID [place] Multivitamins/Minerals (Theragran/Minerals Tab*) 1 tab PO DAILY [facility] Non-Formulary Medication (Alpha Lipoic Acid [Alpha Lipoic Acid]) 200 mg PO QID [place] Non-Formulary Medication (Ferrous Sulfate [High Potency Iron]) 27 mg PO DAILY [place] Oxymorphone HCl (Opana Ir (Nf)) 5 mg PO Q8H PRN PAIN Pantoprazole Sodium (Protonix Tab*) 40 mg PO DAILY [place] Ropinirole HCl (Requip Tab*) 1 mg PO BEDTIME [place] Simvastatin (Zocor(Nf)) 5 mg PO DAILY [place] Tiotropium [place] (Spiriva Respimat 2.5 Mcg) 2 puff INH DAILY [place] Warfarin Sodium (Coumadin Tab(*)) 4.5 mg PO DAILY [place]; Protocol Vital Signs - 8 hr 03/27/19 03/27/19 03/27/19 03:11 07:37 07:43 Temperature 98.3 F 98.4 F Pulse Rate 74 77 75 Respiratory 20 20 16 Rate Blood Pressure 136/49 139/70 (mmHg) O2 Sat by Pulse 93 94 95 Oximetry Oxygen Devices in Use Now: None Result Diagrams: 03/27/19 04:54 03/27/19 04:53 Assess/Plan/Problems-Billing Assessment:
[2019-03-27] MEDS ORDERED: Insulin LISPRO* 1 UNITS UNIT SUBCUT SCH (11:30)
[2019-03-27 11:40] VITALS: BP 111/61
--- NOTE | 2019-03-27 11:57 | CONS ---
CC: Dr. Kim Sidhu * CONSULTATION REPORT: DATE OF CONSULT: 03/27/19 ATTENDING PHYSICIAN: Dr. Guillermo Alegre.* (DICTATED BY MAGALIS SAHNI NP) PRIMARY CARE PHYSICIAN: Dr. Roman. CHIEF COMPLAINT: Dizziness, nausea, pallor, chest pain, sensation of heart racing. HISTORY OF PRESENT ILLNESS: This is a pleasant 64-year-old female patient who follows Dr. Roman of our practice due to a notable history of coronary artery disease with remote bypass in 2003, subsequent cardiac stenting to LAD and left circumflex, who is status post mitral valve repair in June of 2008 at [facility]. Procedure was complicated by proximal right DVT requiring right femoral thrombectomy and patch angioplasty in June of 2018. Prior to having mitral valve repair performed, she presented to [facility] in May of 2018 with sustained VT and complaints of syncope. She was transferred to [facility], where she underwent a cardiac catheterization per report, stents to LAD and circumflex, and right coronary were patent, thus etiology of VT was not thought to be ischemic in nature and was presumed to be related to her cardiomyopathy. She underwent mitral valve repair, LVEF did improve. She was not offered defibrillator per the patient. She states she has been doing well; however in December, she apparently had an episode of lightheadedness with the sensation of heart racing and had a syncopal episode. She states that she had a period of loss of consciousness approximately 2 to 3 minutes that was witnessed by her . She did have the urinary incontinence with that episode. She also admits to episodes of sensation of heart racing with associated dizziness in February of 2019. Apparently, she was evaluated by the ears, nose, and throat physician who placed an ear tube. She states symptoms have persisted since that time. Apparently, yesterday while driving home from [facility], she started to develop lightheadedness with associated sensation of heart racing, chest pain, nausea, profound diaphoresis, and pallor. Episode initially occurred while at a restaurant. She states that she was not able to eat her lunch. She had her drive her home. She did attempt to lie down in supine position with no relief of symptoms, thus because the episode was constant and ongoing, her took her to [facility] to be evaluated. While being evaluated in our emergency department, she had basic blood work obtained. Her potassium was 4.3, magnesium was 2.1, troponin peaked on 03/26/19 at 0.24. She was admitted for chest pain to rule out ACS. On telemetry, she has had periods of recurrent nonsustained ventricular tachycardia with ventricular couplets and triplets. We were asked to see the patient in consultation. She states that last episode of syncope was in December of this year. Denies outpatient ambulatory cardiac monitoring such as Holter event monitor. She did have an updated echocardiogram in September of 2018 outpatient. Per report, LVEF was 50% to 55%, mean mitral gradient was 3.9, normal wall motion. Today's preliminary echocardiogram per Dr. Alegre, LVEF 30% to 35% with multiple regional wall motion abnormalities, mean mitral gradient 6. The patient is compliant with medications. Denies orthopnea, shortness of breath, edema, weight gain. She states that she did have a shortness of breath, however, yesterday with episode and did utilize her 's oxygen and she does report wheezing at that time; however, has not had any recurrent wheezing or shortness of breath since. She is on Coumadin with a therapeutic INR. On telemetry, she does report forceful heartbeats that correlate with non-sustained VT and episodes of PVCs. Last echocardiogram according to our medical records outpatient September of 2018, per report, LVEF was 50% to 55%, normal wall motion, mean mitral valve gradient was 3.9. Last ischemic evaluation was at [facility], 06/14/18, per report, stents to LAD, circumflex, and right coronary artery were patent; the VELA to left PDA, which is quite small, has an ostial lesion that is unchanged from [address] Leung, it was felt that VT was not related to ischemia and was presumed to be related to her cardiomyopathy. No intervention was done at that time. PAST MEDICAL HISTORY: 1. Prior DVT, on Coumadin therapy. 2. Left atrial appendage clot, fall. 3. Postoperative proximal right DVT, June of 2018. 4. Rectal cell cancer requiring chemo and radiation. 5. Peripheral arterial disease. 6. Diverticulosis. 7. Coronary artery disease. 8. Hypertension. 9. Hyperlipidemia. 10. Systolic heart failure. 11. Sustained ventricular tachycardia with syncope in May of 2018. 12. Type 2 diabetes mellitus. 13. PAF 14. PVCs PAST SURGICAL HISTORY: Includes: 1. Remote bypass in 2003. 2. Subsequent cardiac stenting to PDA, circumflex, and right coronary artery. 3. Right femoral thrombectomy and patch angioplasty in June of 2018. 4. Repair of mitral valve in June 2018 via right thoracotomy. HOME MEDICATIONS: Per admission med rec: 1. Aspirin 81 mg a day. 2. Zocor 5 mg p.o. q.h.s. 3. Lasix 40 mg a day. 4. Lisinopril 2.5 mg a day. 5. Protonix 40 mg a day. 6. Carvedilol 6.125 mg p.o. b.i.d. 7. Coumadin as directed. 8. Spiriva as directed. 9. Requip 1 mg p.o. q.h.s. 10. Opana 5 mg p.o. q.8 hours p.r.n. 11. Humalog as directed. ALLERGIES: Listed; 1. BUPROPION. 2. LIDOCAINE. 3. PENICILLIN. 4. SHELLFISH. FAMILY HISTORY: Noncontributory. SOCIAL HISTORY: The patient is a former tobacco user. Denies drug use, alcohol use. She is retired, , lives at home with her . REVIEW OF SYSTEMS: The patient reports episode of dizziness, sensation of heart racing, nausea, pallor, diaphoresis, chest pain, shortness of breath, wheezing, diarrhea. Otherwise, all systems have been reviewed and otherwise negative except as above mentioned in the HPI. PHYSICAL EXAM: Temperature 98.4, pulse 77, respirations 20, oxygenation 94% on room air, blood pressure 139/70. General: The patient is standing upon entering the room, appears in no apparent distress, cooperative with exam, appears well nourished. She is alert and oriented x3. HEENT: Head is atraumatic, normocephalic. Oral mucosa is moist. Tongue is midline. Neck: Supple. Trachea midline. No JVD. No carotid bruits. Cardiac: Normal S1, S2. Regular rate and rhythm. No murmur, rub or gallop noted. Lungs auscultated posteriorly, slightly diminished in bases. Otherwise, no evidence of adventitious breath sounds. Respirations are nonlabored, rate of 16. /GI: Abdomen is soft, nontender, nondistended. Positive bowel sounds throughout. Extremities: No pedal edema, no clubbing, no cyanosis. Peripheral Vascular: 3 + brachial pulses palpated bilaterally and symmetrically. 2+ dorsalis pedis pulse palpated bilaterally and symmetrically. Skin: Intact. No evidence of jaundice, rashes, ecchymosis, or lesions noted. DIAGNOSTIC STUDIES/LAB DATA: Blood work obtained on 03/27/19: White count 7.4 , hemoglobin 13.9, hematocrit 40, platelets 203. Sodium 137, potassium 4.3 chloride 103, carbon dioxide 25, BUN 17, creatinine 1.07. Troponin peaked 03/26 at 0.24. LDL 84, INR again 2.08 on 03/27/19. Echocardiogram on 03/26/19, poor LVF, 30% to 35%, mean mitral gradient 6, mild- to- moderate ventricle systolic dysfunction. Regional wall motion abnormalities include akinesis of the basal anteroseptal and mid anterolateral myocardium, hypokinesis of the mid apical anterior mid intraseptal and mid inferolateral and apical lateral myocardium, moderate hypokinesis of the mid inferoseptal and mid inferior myocardium. Chest x-ray on 03/26/19: No active cardiopulmonary process. ECG reviewed from 03/26/19; sinus rhythm, rate 87, with frequent PVCs, known underlying right bundle branch block. Telemetry reviewed sinus rhythm with underlying right bundle branch block, frequent PVCs, periods of ventricular complex triplets and nonsustained VT. ASSESSMENT AND PLAN: 1. Complaints of accelerated heart rate with associated diaphoresis, nausea, chest pain, dizziness. Episode lasted several hours. However, dizziness and sensation of heart racing has been intermittent. Troponin peaked on 03/26/10 at 0.24. She has new regional wall motion abnormalities with new reduction in systolic function compared to September of 2018 echocardiogram as mentioned above. She has a history of sustained ventricular tachycardia that was felt to be related to a cardiomyopathy and mitral valve disease in May of 2018. Thus she did not undergo ICD implantation after her mitral valve repair. Left ventricular ejection fraction did improve postoperatively. She has had frequent nonsustained ventricular tachycardia on telemetry with periods of ventricular couplets and triplets. She would likely need left heart catheterization with EP consultation. Due to her extensive known peripheral arterial disease in addition to her systolic dysfunction, it is felt that she would be best evaluated at [facility] where they have electrophysiology and are familiar with her cardiac care. The patient is currently asymptomatic. She is on Coreg therapy which we will continue. We will initiate transfer process. 2. History of sustained ventricular tachycardia in May of 2018 noted on [employer]; it was felt that etiology of ventricular tachycardia was related to her cardiomyopathy per left heart catheterization report from 06/14/18 at [facility]. She underwent mitral valve repair, left ventricular ejection fraction did improve to 50% to 55% on echocardiogram September of 2018. However, left ventricular ejection fraction is now 30% to 35%. She has been having recurrent frequent nonsustained ventricular tachycardia and she had syncope actually in December of 2017. Thus, the patient would benefit from EP evaluation. We will speak to [facility] on Coreg therapy at this current time. Potassium and magnesium are stable. 3. History of coronary artery disease with remote bypass in 2003 with subsequent percutaneous coronary intervention to left anterior descending, circumflex, and right coronary arteries. We have a catheterization on 06/06/18 , per report patent stents. Troponin minimally elevated at this time, could be related to possible arrhythmia that occurred yesterday. She would likely need left heart catheterization. INR is 2.08. 4. History of blood clot; and the patient had a history of deep venous thrombosis on Coumadin therapy and then unfortunately developed a left atrial appendage clot in 05/2018, I believe on Coumadin therapy. Postoperatively, from her mitral valve repair, she suffered from a proximal right deep venous thrombosis that required a thrombectomy patch and angioplasty per report from [facility]. She states that she has never had a thrombophilia evaluation. She would likely benefit from this. 5. History of systolic heart failure with near normalization after mitral valve repair. Left ventricular ejection fraction now 30% to 35%. She has a compensated physical examination. We will continue Coreg and lisinopril therapy. 6. Disposition: Pending course. Dr. Guillermo Alegre has personally seen and examined the patient and agrees with the above assessment and plan. We will call transfer center and initiate process with [facility]. Thank you for this kind consultation. Any future questions or concerns, please do not hesitate to contact our practice. MAGALIS SAHNI, NOHEMI [id number]/CPS #: [id number]/CPS #: [id number] Late entry: I met with and examined the patient on 03.27.19. I reviewed the case with Ms. Sahni. Given her symptoms, history of syncope, frequent pvc's, NSVT, cardiomyopathy with decreased LV function c/t last echo, and CAD, I have recommended further evaluation as an inpatient. Possibilities include PVC's/VT related to ischemia or scar from her prior CAD/valvular cardiomyopathy as well as a PVC induced cardiomyopathy. I explained that an EP consultation and EP study might prove helpful in managing this potentially life threatening constellation of findings; she understood the potential need for an ICD and additional antiarrhythmic therapy. In addition, I explained that a cardiac cath might be obtained to exclude progression of her CAD given the VT and decreased EF. She understood the recommendations and agreed to proceed with transfer to [facility] for further evaluation DR. Alegre, 03/28/19 [facility] [place]
--- NOTE | 2019-03-27 13:04 | TRS ---
CC: Kim Sidhu MD; Dr. Royce Roman * TRANSFER SUMMARY: DATE OF ADMISSION: 03/26/19 DATE OF ANTICIPATED TRANSFER: 03/27/19 PRIMARY CARE PROVIDER: Kim Sidhu MD OUTPATIENT BRAZING FURNACE OPERATOR: Dr. Royce Roman ATTENDING PHYSICIAN: Dr. Kalie Langston.* (DICTATED BY ELODIA JERONIMO NP) PRIMARY DIAGNOSES: 1. Chest pain with elevated troponin. 2. Nonsustained ventricular tachycardia. 3. Acute kidney injury. SECONDARY DIAGNOSES: 1. Peripheral artery disease. 2. Diabetes mellitus type 2. 3. Chronic obstructive pulmonary disease. 4. History of deep venous thrombosis. 5. History of arterial thrombus. 6. Hypertension. 7. Hyperlipidemia. STUDIES WHILE IN THE HOSPITAL: 1. EKG on 03/26/19, reads as normal sinus rhythm with PVC and a right bundle- branch block, rate of 88. This EKG is similar in appearance to prior EKG on record from 06/04. 2. Chest x-ray on 03/26/19, reads as no acute cardiopulmonary process. 3. EKG on 03/26/19 again shows normal sinus with PVC and right bundle-branch block, rate is 87. No significant change since prior. 4. Transthoracic echocardiogram on 03/27/19, reads as the left ventricular cavity size is upper limits of normal. Wall thickness is normal. Systolic function is normal. The estimated ejection fraction is 30% to 35%. Systolic function is worse from the study as 10/04. Right ventricular systolic function is mildly-to- moderately reduced. Overall, RV function is worse in comparison with the study of 10/04. Postoperative hypokinesis of the interventricular septum is observed. The left atrium is mildly dilated. Prior procedures include mitral valve surgical repair. The findings are consistent with mild mitral stenosis. There is trace mitral regurgitation. There is mild tricuspid regurgitation. HISTORY OF PRESENT ILLNESS AND HOSPITAL COURSE: Ms. Wlikerson is a 64-year-old female with past medical history of coronary artery disease, status post three- vessel coronary artery bypass graft and stenting, severe mitral regurgitation, status post porcine valve replacement, peripheral arterial disease, DVT, left atrial thrombus, diabetes, COPD, on 2 L at night, congestive heart failure, hypertension, and hyperlipidemia, who presented to the emergency room on with complaints of chest pain and dizziness. Please see the history and physical by Dr. Movva for a complete summary of the events leading up to this hospitalization. In short, the patient has an extensive cardiac history, which includes three-vessel CABG and cardiac catheterization in 04/04 showing patent stents and mitral valve replacement. On the day of admission, the patient reported chest pain, dizziness, shortness of breath, and a syncopal episode at home. She does report that she had a syncopal episode in November and another 3 weeks later in December, though did not seek any medical attention at that time. She describes frequent episodes of dizziness and substernal chest pain radiating to her left arm. Pain has been relieved with nitro. In the emergency room, she was noted to have an elevated troponin at 0.15, hypomagnesemia at 1.7 , and acute kidney injury with a creatinine of 1.16. She is on Coumadin and was noted to have a therapeutic INR at 2.31. Vital signs were stable. The patient was admitted by the hospitalist service. The patient denies any further episodes of chest pain. She reports last episode of chest pain was in the emergency room yesterday. No episode overnight or this morning. The patient's nurse did call me this morning to notify me that the patient was having frequent episodes of nonsustained ventricular tachycardia. When questioned the patient does admit to feeling intermittent palpitations this morning. She denies any outright dizziness today. Troponins did peak overnight at 0.24 and troponin this morning is 0.13, creatinine is slightly improved at 1.07. Lipid panel this morning shows triglycerides of 66, total cholesterol of 154, LDL of 84, and HDL 57, hemoglobin A1c is 6.2%. Vital signs this morning have been stable and the patient denies any other complaints. She did have an echocardiogram this morning with results noted above. She was seen in consultation by Shima Sahni NP from Cardiology, who at this point is initiating a transfer higher level of care to [facility] where the patient has had her prior procedures due to the need for electrophysiology. The patient does continue to have frequent episodes of nonsustained ventricular tachycardia, typically around 4 beats, so there have been longer episodes. PHYSICAL EXAMINATION: Ms. Wilkerson is a well-developed, well-nourished, middle - aged white female, sitting in bed, in no acute distress. She appears her stated age. Vital Signs: Temp 98.4, heart rate 75, respiratory rate 18, oxygen saturation 95% on room air, blood pressure 139/70. HEENT: Head is atraumatic, normocephalic. Visual herman are grossly intact. Oral mucous membranes moist. Respiratory: Symmetrical chest expansion. No chest wall deformity. Lungs: Clear to auscultation throughout. No rhonchi, wheezes, or rubs. Cardiovascular: Regular rate and rhythm. S1, S2 present. No murmurs, rubs, or gallops. No JVD. Extremities: Skin warm and smooth bilaterally. No edema. No clubbing or cyanosis. Abdomen: Soft, nontender to palpation. Bowel sounds normoactive. Neuro: Awake, alert, and oriented x4. No focal neurological deficits. Moves all extremities. CURRENT MEDICATIONS: 1. DuoNeb 1 inhalation q.4 hours p.r.n. shortness of breath, wheezing. 2. Valproic acid 200 mg p.o. 4 times a day. 3. Aspirin 81 mg p.o. daily. 4. Buspirone 15 mg p.o. t.i.d. 5. Carvedilol 6.25 mg p.o. b.i.d. 6. Pletal 50 mg p.o. b.i.d. 7. Vitamin B12 1000 mcg p.o. daily. 8. Ferrous sulfate 27 mg p.o. daily. 9. Lispro subcu sliding scale. 10. Lisinopril 2.5 mg p.o. daily. 11. Imodium 2 mg p.o. p.r.n. diarrhea. 12. Melatonin 6 mg p.o. at bedtime. 13. Dulera 2 puffs b.i.d. 14. Multivitamin 1 tab p.o. daily. 15. Oxymorphone IR 5 mg p.o. q.8 hours p.r.n. pain. 16. Pantoprazole 40 mg p.o. daily. 17. Requip 1 mg p.o. at bedtime. 18. Simvastatin 5 mg p.o. daily. 19. Spiriva Respimat 2 puffs daily. DIET: NPO. ACTIVITY: Up with assistance. CONDITION: Fair. DISPOSITION: Transferred to higher level of care to [facility], accepting physician Dr. Rosenberg. TIME SPENT: Approximately 70 minutes have been spent on this transfer. ELODIA JERONIMO, MANAGER DISTRIBUTION [id number]/[facility] #: [id number] [facility]PITALDameon
--- NOTE | 2019-03-27 13:53 | CONS ---
CONSULTATION REPORT: ADDENDUM: ATTENDING PHYSICIAN: Dr. Guillermo Alegre. PAST SURGICAL HISTORY: 1. Right femoral thrombectomy and patch angioplasty in June of 2018. 2. Repair of mitral valve in June 2018 via right thoracotomy. HOME MEDICATIONS: Per admission med rec: 1. Aspirin 81 mg a day. 2. Zocor 5 mg p.o. q.h.s. 3. Lasix 40 mg a day. 4. Lisinopril 2.5 mg a day. 5. Protonix 40 mg a day. 6. Carvedilol 6.125 mg p.o. b.i.d. 7. Coumadin as directed. 8. Spiriva as directed. 9. Requip 1 mg p.o. q.h.s. 10. Opana 5 mg p.o. q.8 hours p.r.n. 11. Humalog as directed. ALLERGIES: Listed; 1. BUPROPION. 2. LIDOCAINE. 3. PENICILLIN. 4. SHELLFISH. FAMILY HISTORY: Noncontributory. SOCIAL HISTORY: The patient is a former tobacco user. Denies drug use, alcohol use. She is retired , , lives at home with her . REVIEW OF SYSTEMS: The patient reports episode of dizziness, sensation of heart racing, nausea, pall or, diaphoresis, chest pain, shortness of breath, wheezing, diarrhea. Otherwise, all systems have be en reviewed and otherwise negative except as above mentioned in the HPI. PHYSICAL EXAM: Temperature is 98.4, pulse 77, respirations 20, oxygenation 94% on room air, blood pr essure 139/70. General: The patient is standing upon entering the room, appears in no apparent dist ress, cooperative with exam, appears well nourished. She is alert and oriented x3. HEENT: Head is atraumatic, normocephalic. Oral mucosa is moist. Tongue is midline. Neck: Supple. Trachea midlin e. No JVD. No carotid bruits. Cardiac: Normal S1, S2. Regular rate and rhythm. No murmur, rub o r gallop noted. Lungs auscultated posteriorly, slightly diminished in bases. Otherwise, no evidence of adventitious breath sounds. Respirations are nonlabored, rate of 16. /GI: Abdomen is soft, no ntender, nondistended. Positive bowel sounds throughout. Extremities: No pedal edema, no clubbing, no cyanosis. Peripheral Vascular: 3+ brachial pulses palpated bilaterally and symmetrically. 2+ d orsalis pedis pulse palpated bilaterally and symmetrically. Skin: Intact. No evidence of jaundice, rashes, ecchymosis, or lesions noted. DIAGNOSTIC STUDIES/LAB DATA: Blood work obtained on 03/27/19: White count 7.4, hemoglobin 13.9, hem atocrit 40, platelets 203. Sodium 137, potassium 4.3 chloride 103, carbon dioxide 25, BUN 17, creati nine 1.07. Troponin peaked 03/26/19 at 0.24. LDL 84, INR again 2.08 on 03/27/19. Echocardiogram on 03/26/19, poor LVF, 30% to 35%, mean mitral gradient 6, mild-to- moderate ventricle systolic dysfunction. Regional wall motion abnormalities include akinesis of the basal anteroseptal and mid anterolateral myocardium, hypokinesis of the mid apical anterior mid intraseptal and mid inf erolateral and apical lateral myocardium, moderate hypokinesis of the mid inferoseptal and mid inferi or myocardium. Chest x-ray on 03/26/19: No active cardiopulmonary process. ECG reviewed from 03/26/19; sinus rhythm, rate 87, with frequent PVCs, known underlying right bundle branch block. Telemetry reviewed sinus rhythm with underlying right bundle branch block, frequent PVCs, periods of ventricular complex triplets and nonsustained VT. ASSESSMENT AND PLAN: 1. Complaints of accelerated heart rate with associated diaphoresis, nausea, chest pain, dizziness. Episode lasted several hours. However, dizziness and sensation of heart racing has been intermitten t. Troponin peaked on 03/26/10 at 0.24. She has new regional wall motion abnormalities with new red uction in systolic function compared to September of 2018 echocardiogram as mentioned above. She has a h istory of sustained ventricular tachycardia that was felt to be related to a cardiomyopathy and lidia l valve disease in May of 2018. Thus she did not undergo ICD implantation after her mitral valv e repair. Left ventricular ejection fraction did improve postoperatively. She has had frequent nons ustained ventricular tachycardia on telemetry with periods of ventricular couplets and triplets. She would likely need left heart catheterization with EP consultation. Due to her extensive known perip heral arterial disease in addition to her systolic dysfunction, it is felt that she would be best tessa luated at [facility] where they have electrophysiology and are familiar with her cardiac care. The patient is currently asymptomatic. She is on Coreg therapy which we will continue. We will in itiate transfer process. 2. History of sustained ventricular tachycardia in May of 2018 noted on [facility]; it was felt t hat etiology of ventricular tachycardia was related to her cardiomyopathy per left heart catheterizat ion report from 06/14/18 at [facility]. She underwent mitral valve repair, left ventricular e jection fraction did improve to 50% to 55% on echocardiogram September of 2018. However, left ventricula r ejection fraction is now 30% to 35%. She has been having recurrent frequent nonsustained ventricul ar tachycardia and she had syncope actually in December of 2017. Thus, the patient would benefit from EP evaluation. We will speak to [facility] on Coreg therapy at this current time. Potassium and magnesi um are stable. 3. History of coronary artery disease with remote bypass in 2003 with subsequent percutaneous [place] intervention to left anterior descending, circumflex, and right coronary arteries. We have a cath eterization on 06/06/18, per report patent stents. Troponin minimally elevated at this time, could b e related to possible arrhythmia that occurred yesterday. She would likely need left heart catheteri zation. INR is 2.08. 4. History of blood clot; and the patient had a history of deep venous thrombosis on Coumadin therap y and then unfortunately developed a left atrial appendage clot in 05/2018, I believe on Coumadin the rapy. Postoperatively, from her mitral valve repair, she suffered from a proximal right deep venous thrombosis that required a thrombectomy patch and angioplasty per report from [facility]. She states t hat she has never had a thrombophilia evaluation. She would likely benefit from this. 5. History of systolic heart failure with near normalization after mitral valve repair. Left ventri cular ejection fraction now 30% to 35%. She has a compensated physical examination. We will continu e Coreg and lisinopril therapy. 6. Disposition: Pending course. Dr. Guillermo Alegre has personally seen and examined the patient and agrees with the above assessment and plan. We will call transfer center and initiate process with [facility]. Thank you for this kind consultation. Any future questions or concerns, please do not hesitate to co ntact our practice. MAGALIS GOFF, NOHEMI [id number]/[facility] #: [id number]
[2019-03-27] MEDS ORDERED: Melatonin 3 MG TAB PO SCH (21:00)
[2019-03-28] MEDS ORDERED: SPIRIVA Respimat* (tiotropium) 2.5 mcg/inh Inhaler INH SCH (09:00)
== END 2019-03-27 12:47 | disposition short-term general hospital (02) | DRG 313 ==
LOC: ED 15:53 → MEDTELE 20:32
PROVIDERS: ADMIT Internal Medicine; ATTEND Internal Medicine
DX: R07.9 Chest pain, unspecified (principal); I47.2 Ventricular tachycardia; N17.9 Acute kidney failure, unspecified; I50.22 Chronic systolic (congestive) heart failure; I42.9 Cardiomyopathy, unspecified; I25.10 Atherosclerotic heart disease of native coronary artery without angina pectoris; E11.51 Type 2 diabetes mellitus with diabetic peripheral angiopathy without gangrene; J44.9 Chronic obstructive pulmonary disease, unspecified; G47.33 Obstructive sleep apnea (adult) (pediatric); F32.9 Major depressive disorder, single episode, unspecified; F41.9 Anxiety disorder, unspecified; G89.29 Other chronic pain; I11.0 Hypertensive heart disease with heart failure; E78.5 Hyperlipidemia, unspecified; N13.9 Obstructive and reflux uropathy, unspecified; K21.9 Gastro-esophageal reflux disease without esophagitis; E78.00 Pure hypercholesterolemia, unspecified; K57.90 Diverticulosis of intestine, part unspecified, without perforation or abscess without bleeding; I48.0 Paroxysmal atrial fibrillation; I49.3 Ventricular premature depolarization; I45.10 Unspecified right bundle-branch block; R79.89 Other specified abnormal findings of blood chemistry; I08.1 Rheumatic disorders of both mitral and tricuspid valves; E83.42 Hypomagnesemia; G25.81 Restless legs syndrome; Z86.718 Personal history of other venous thrombosis and embolism; Z95.1 Presence of aortocoronary bypass graft; Z95.3 Presence of xenogenic heart valve; Z99.81 Dependence on supplemental oxygen; Z87.440 Personal history of urinary (tract) infections; Z85.41 Personal history of malignant neoplasm of cervix uteri; Z85.048 Personal history of other malignant neoplasm of rectum, rectosigmoid junction, and anus; Z92.21 Personal history of antineoplastic chemotherapy; Z92.3 Personal history of irradiation; Z88.2 Allergy status to sulfonamides; Z88.0 Allergy status to penicillin; Z88.8 Allergy status to other drugs, medicaments and biological substances; Z88.4 Allergy status to anesthetic agent; Z91.013 Allergy to seafood; Z82.0 Family history of epilepsy and other diseases of the nervous system; Z87.891 Personal history of nicotine dependence; Z95.5 Presence of coronary angioplasty implant and graft; I25.2 Old myocardial infarction; Z90.722 Acquired absence of ovaries, bilateral; Z79.82 Long term (current) use of aspirin; Z79.4 Long term (current) use of insulin
CPT/HCPCS: 36415; 71046; 80048; 80053; 80061; 82803; 83036; 83735; 84484; 85025; 85610; 93005; 93306; 94640; 94660; 96374; 99284; A9270-GY; C8929; J2930; J3475; J3535

== ENCOUNTER 2020-11-18 09:02 | Inpatient (IN) ==
[2020-11-18 09:21] LABS: ABS Eosinophils 0.1 10^3/ul (0-0.6); ABS Monocytes 0.6 10^3/ul (0-0.8); ABS Neutrophils 5.3 10^3/ul (1.5-7.7); Eosinophil % 1.1 %; Hematocrit 33 % (35-47); Hemoglobin 10.5 g/dL (12.0-16.0); Lymphocyte % 14.3 %; Mean Corpuscular HGB Conc 32 g/dL (31-36); Mean Corpuscular Hemoglobin 26 pg (27-31); Mean Corpuscular Volume 83 fL (80-97); Mean Platelet Volume 7.5 fL (7.4-10.4); Nucleated Red Blood Cells % 0.4; Platelet Count 223 10^3/uL (150-450); Red Blood Count 3.97 10^6 /uL (3.70-4.87); Red Cell Distribution Width 20 % (10-15)
[2020-11-18 09:38] LABS: Albumin 3.8 g/dL (3.2-5.2); Albumin/Globulin Ratio 1.5 (1-3); Calcium 8.8 mg/dL (8.6-10.3); EGFR African American 56.3 (>60); EGFR Non-African American 46.6 (>60); Globulin 2.6 g/dL (2-4); Potassium 4.3 mmol/L (3.5-5.0); Total Bilirubin 1.3 mg/dL (0.2-1.0); Total Protein 6.4 g/dL (6.4-8.9)
[2020-11-18] MEDS ORDERED: Phytonadione IV (Adult) 10 MG in NS 0.9% 50 ML 50 ML IV ONE (09:38)
[2020-11-18 09:40] LABS: Troponin I 0.02 ng/mL (<0.03)
[2020-11-18] MEDS ORDERED: Furosemide 40 mg/4 ml IV VIAL IV SLOW PU ONE (09:49)
[2020-11-18] MEDS ORDERED: NS 0.9% 50 ML 50 ML ONE (09:54)
[2020-11-18 10:03] LABS: INR >10.00 (0.82-1.09)
[2020-11-18] MEDS ORDERED: Furosemide 100 mg/10 ml IV 100 MG in NS 0.9% 100 ml BAG 90 ML IV SCH (12:00)
[2020-11-18 12:14] LABS: C Reactive Protein 37.69 mg/L (<8.01)
[2020-11-18 12:20] LABS: Activated Partial Thrombo Time 62.5 seconds (26.0-38.0)
[2020-11-18] MEDS ORDERED: Dextrose 50% Syringe 50 ml 25 GM/50 ML SYRINGE IV PUSH PRN (15:15)
[2020-11-18] MEDS: Digoxin IV 0.5 MG/2 ML AMP (0.25 MG/ML) IV SLOW PU SCH ×3 (17:20→23:55)
[2020-11-18 18:00] LABS: TSH Ultra Thyroid Stim Horm 38.92 mcIU/mL (0.34-5.60)
[2020-11-18] MEDS: SPIRIVA Respimat (tiotropium) 2.5 mcg/inh Inhaler INH SCH (19:48)
[2020-11-18] MEDS: Mometasone/Formoter 100/5 MDI INH SCH (19:49)
[2020-11-18 20:18] LABS: INR 4.86 (0.82-1.09)
[2020-11-18 20:31] LABS: Calcium 8.5 mg/dL (8.6-10.3); EGFR African American 56.9 (>60); Potassium 3.9 mmol/L (3.5-5.0)
[2020-11-19 06:21] LABS: ABS Basophils 0.1 10^3/ul (0-0.2); ABS Eosinophils 0.1 10^3/ul (0-0.6); ABS Lymphocytes 0.7 10^3/ul (1.0-4.8); ABS Monocytes 0.4 10^3/ul (0-0.8); ABS Neutrophils 4.3 10^3/ul (1.5-7.7); Calcium 7.9 mg/dL (8.6-10.3); Eosinophil % 1.7 %; Hematocrit 26 % (35-47); Hemoglobin 8.3 g/dL (12.0-16.0); Lymphocyte % 12.8 %; Magnesium 1.7 mg/dL (1.9-2.7); Mean Corpuscular HGB Conc 32 g/dL (31-36); Mean Corpuscular Hemoglobin 27 pg (27-31); Mean Corpuscular Volume 83 fL (80-97); Mean Platelet Volume 7.8 fL (7.4-10.4); Nucleated Red Blood Cells % 0.2; Platelet Count 169 10^3/uL (150-450); Potassium 3.9 mmol/L (3.5-5.0); Red Blood Count 3.12 10^6 /uL (3.70-4.87); Red Cell Distribution Width 20 % (10-15); White Blood Count 5.7 10^3/uL (3.5-10.8)
[2020-11-19 06:26] LABS: EGFR African American 69.1 (>60); EGFR Non-African American 57.1 (>60)
[2020-11-19] MEDS: Mometasone/Formoter 100/5 MDI INH SCH (07:38)
[2020-11-19] MEDS: SPIRIVA Respimat (tiotropium) 2.5 mcg/inh Inhaler INH SCH (07:39)
[2020-11-19] MEDS ORDERED: Furosemide 100 mg/10 ml IV 100 MG in NS 0.9% 100 ml BAG 90 ML IV SCH (08:51)
[2020-11-19] MEDS ORDERED: Magnesium Sulfate 2 gm BAG 2 GM/50 ML BAG IVPB ONE (08:52)
[2020-11-19] MEDS ORDERED: Multivitamins/Minerals TAB PO SCH (09:00)
[2020-11-19] MEDS ORDERED: Amiodarone 400 mg TAB PO SCH (09:00)
[2020-11-19 10:06] LABS: Digoxin 2.1 ng/ml (0.8-2.0)
[2020-11-19] MEDS ORDERED: Perflutren Lipid Microsphere 3 ML VIAL ONE (10:38)
[2020-11-19 12:19] LABS: Urine Appearance Cloudy; Urine Bilirubin Negative (Negative); Urine Blood 1+ (Negative); Urine Color Yellow; Urine Glucose Negative (Negative); Urine Ketones Negative (Negative); Urine Nitrite Positive (Negative); Urine Protein Negative (Negative); Urine Urobilinogen Negative (Negative)
[2020-11-19 12:27] LABS: Urine Bacteria 1+ (Absent); Urine Red Blood Cell 3+(>10/hpf) (Absent); Urine Squamous Epithelial Cell Present (Absent); Urine White Blood Cell 3+(>20/hpf) (Absent)
[2020-11-19 15:30] VITALS: BP 118/57
[2020-11-20] MEDS ORDERED: Digoxin IV 0.5 MG/2 ML AMP (0.25 MG/ML) IV SLOW PU ONE (09:00)
== END 2020-11-19 17:47 | disposition short-term general hospital (02) | DRG 292 ==
LOC: ED 09:02 → MEDTELE 11:43
PROVIDERS: ADMIT Hospitalist; ATTEND Hospitalist

== ENCOUNTER 2021-06-14 16:06 | Observation (INO) ==
[2021-06-14 17:06] LABS: ABS Basophils 0.1 10^3/ul (0-0.2); ABS Eosinophils 0.1 10^3/ul (0-0.6); ABS Monocytes 0.5 10^3/ul (0-0.8); ABS Neutrophils 6.3 10^3/ul (1.5-7.7); Eosinophil % 0.7 %; Hematocrit 32 % (35-47); Hemoglobin 10.8 g/dL (12.0-16.0); Lymphocyte % 12.9 %; Mean Corpuscular HGB Conc 34 g/dL (31-36); Mean Corpuscular Hemoglobin 28 pg (27-31); Mean Corpuscular Volume 82 fL (80-97); Mean Platelet Volume 6.6 fL (7.4-10.4); Platelet Count 227 10^3/uL (150-450); Red Blood Count 3.92 10^6 /uL (3.70-4.87); Red Cell Distribution Width 19 % (10-15)
[2021-06-14 17:24] LABS: Albumin/Globulin Ratio 1.4 (1-3); Calcium 8.8 mg/dL (8.6-10.3); Globulin 2.8 g/dL (2-4); Potassium 3.3 mmol/L (3.5-5.0); Total Bilirubin 0.8 mg/dL (0.2-1.0); Total Protein 6.8 g/dL (6.4-8.9); eGFR CKD-EPI 49.7 (>60)
[2021-06-14 17:26] LABS: Troponin I 0.01 ng/mL (<0.03)
[2021-06-14] MEDS ORDERED: Furosemide 40 mg/4 ml IV VIAL IV ONE (17:44)
[2021-06-14] MEDS ORDERED: Potassium Chlor 10 meq TAB PO ONE (17:48)
[2021-06-14 18:19] LABS: Magnesium 1.9 mg/dL (1.9-2.7)
[2021-06-14 18:32] LABS: TSH Ultra Thyroid Stim Horm 12.9 mcIU/mL (0.34-5.60)
[2021-06-14 18:36] LABS: Free T4 1.12 ng/dL (0.61-1.12)
[2021-06-14 18:39] LABS: Ferritin 107.6 ng/mL (11-307)
[2021-06-14] MEDS ORDERED: Magnesium Sulfate 2 gm BAG 2 GM/50 ML BAG IVPB ONE (18:47)
[2021-06-14] MEDS ORDERED: Albuterol 2.5mg/3 ml (0.083%) NEB.SOLN INH PRN (21:31)
[2021-06-14 22:08] LABS: INR 2.27 (0.86-1.15)
[2021-06-14 22:48] LABS: ABS Basophils 0.1 10^3/ul (0-0.2); ABS Eosinophils 0.1 10^3/ul (0-0.6); ABS Lymphocytes 0.9 10^3/ul (1.0-4.8); ABS Monocytes 0.5 10^3/ul (0-0.8); ABS Neutrophils 5.6 10^3/ul (1.5-7.7); Eosinophil % 1.1 %; Hematocrit 28 % (35-47); Hemoglobin 9.6 g/dL (12.0-16.0); Lymphocyte % 13.1 %; Mean Corpuscular HGB Conc 34 g/dL (31-36); Mean Corpuscular Hemoglobin 27 pg (27-31); Mean Corpuscular Volume 81 fL (80-97); Mean Platelet Volume 6.7 fL (7.4-10.4); Platelet Count 201 10^3/uL (150-450); Red Blood Count 3.49 10^6 /uL (3.70-4.87); Red Cell Distribution Width 18 % (10-15); White Blood Count 7.2 10^3/uL (3.5-10.8)
[2021-06-14] MEDS ORDERED: Dextrose 50% Syringe 50 ml 25 GM/50 ML SYRINGE IV PUSH PRN (22:48)
[2021-06-14] MEDS ORDERED: Potassium Chlor 20 meq TAB.ER PO ONE (22:57)
[2021-06-14 23:07] LABS: Calcium 8.7 mg/dL (8.6-10.3); Magnesium 2.4 mg/dL (1.9-2.7); eGFR CKD-EPI 49.2 (>60)
[2021-06-14 23:08] LABS: Urine Osmo 222 mOsm/kg (150-1150)
[2021-06-15 05:46] LABS: Calcium 8.8 mg/dL (8.6-10.3); Potassium 3.2 mmol/L (3.5-5.0); eGFR CKD-EPI 51.3 (>60)
[2021-06-15] MEDS ORDERED: Potassium Chlor 20 meq TAB.ER PO ONE ×2 (05:57→08:00)
[2021-06-15] MEDS ORDERED: SPIRIVA Respimat (tiotropium) 2.5 mcg/inh Inhaler INH SCH (07:00)
[2021-06-15] MEDS ORDERED: Mometasone/Formoter 100/5 MDI INH SCH (07:00)
[2021-06-15] MEDS: ALPHA LIPOIC ACID 200 MG PO SCH ×3 (08:23→17:29)
[2021-06-15] MEDS ORDERED: ALENDRONATE 10 MG PO SCH (09:00)
[2021-06-15] MEDS ORDERED: oxyCODONE/Acetamin 5/325 mg TAB PO PRN (11:05)
[2021-06-15] MEDS ORDERED: Senna TAB 8.6 mg TAB PO PRN (11:06)
[2021-06-15] MEDS ORDERED: OXYMORPHONE 5 MG PO PRN (11:12)
[2021-06-15] MEDS: Potassium Chloride LIQUID 20 MEQ/15 ML LIQUID PO SCH ×3 (11:22→15:11)
[2021-06-15] MEDS ORDERED: OXYMORPHONE 5 MG PO SCH (12:00)
[2021-06-15 14:26] LABS: Calcium 8.5 mg/dL (8.6-10.3); Potassium 4.9 mmol/L (3.5-5.0)
[2021-06-15] MEDS ORDERED: Perflutren Lipid Microsphere 3 ML VIAL ONE (14:53)
[2021-06-15 16:26] VITALS: BP 107/58
[2021-06-17 08:46] LABS: % Iron Saturation 7 % (14 - 50); Total Iron Binding Capacity 325 mcg/dL (250 - 400)
== END 2021-06-15 18:25 | disposition home or self-care (01) ==
LOC: ED 16:06 → EDHOLD 16:06 → SUATTDRO 20:28 → MEDTELE 23:49
PROVIDERS: ADMIT Internal Medicine; ATTEND Internal Medicine

== ENCOUNTER 2021-07-10 20:13 | Inpatient (IN) ==
[2021-07-10 21:17] LABS: ABS Basophils 0.1 10^3/ul (0-0.2); ABS Eosinophils 0.2 10^3/ul (0-0.6); ABS Lymphocytes 0.8 10^3/ul (1.0-4.8); ABS Monocytes 0.5 10^3/ul (0-0.8); ABS Neutrophils 5.3 10^3/ul (1.5-7.7); Eosinophil % 2.3 %; Hematocrit 30 % (35-47); Hemoglobin 9.8 g/dL (12.0-16.0); Lymphocyte % 12.5 %; Mean Corpuscular HGB Conc 33 g/dL (31-36); Mean Corpuscular Hemoglobin 27 pg (27-31); Mean Corpuscular Volume 82 fL (80-97); Mean Platelet Volume 6.3 fL (7.4-10.4); Platelet Count 197 10^3/uL (150-450); Red Blood Count 3.64 10^6 /uL (3.70-4.87); Red Cell Distribution Width 19 % (10-15); White Blood Count 6.8 10^3/uL (3.5-10.8)
[2021-07-10 21:27] LABS: INR 6.86 (0.86-1.15)
[2021-07-10 21:36] LABS: ALT 11 U/L (7-52); AST 17 U/L (13-39); Albumin 3.4 g/dL (3.2-5.2); Albumin/Globulin Ratio 1.3 (1-3); Alkaline Phosphatase 116 U/L (35-149); Anion Gap 10 mmol/L (2-11); Blood Urea Nitrogen 81 mg/dL (6-24); CO2 Carbon Dioxide 30 mmol/L (22-32); Calcium 8.4 mg/dL (8.6-10.3); Chloride 96 mmol/L (101-111); Globulin 2.6 g/dL (2-4); Glucose 182 mg/dL (70-100); Potassium 4.2 mmol/L (3.5-5.0); Sodium 136 mmol/L (135-145); eGFR CKD-EPI 11.9 (>60)
[2021-07-10 21:41] LABS: Troponin I 0.03 ng/mL (<0.03)
[2021-07-10] MEDS ORDERED: Lactated Ringers 1000 ml BAG 1,000 ML IV ONE (21:53)
[2021-07-10 23:55] LABS: Ammonia 27 mcmol/L (16-53)
[2021-07-11 00:36] LABS: BNP 411 pg/mL (<=100)
[2021-07-11 00:52] LABS: Urine Appearance Cloudy; Urine Color Yellow; Urine Specific Gravity 1.025 (1.002-1.030)
[2021-07-11 00:53] LABS: Urine Bilirubin Negative (Negative); Urine Blood 2+ (Negative); Urine Glucose Negative (Negative); Urine Ketones Negative (Negative); Urine Nitrite Negative (Negative); Urine Protein Negative (Negative); Urine Urobilinogen Negative (Negative); Urine pH 5 (5-9)
[2021-07-11 00:57] LABS: Urine Bacteria 1+ (Absent); Urine Red Blood Cell 3+(>10/hpf) (Absent); Urine Renal Epithelial Cells Present (Absent); Urine Squamous Epithelial Cell Present (Absent); Urine White Blood Cell 3+(>20/hpf) (Absent)
[2021-07-11 01:19] LABS: TSH Ultra Thyroid Stim Horm 5.19 mcIU/mL (0.34-5.60)
[2021-07-11] MEDS ORDERED: Lactated Ringers 1000 ml BAG 1,000 ML IV SCH (01:30)
[2021-07-11] MEDS ORDERED: Albuterol 2.5mg/3 ml (0.083%) NEB.SOLN INH PRN (01:31)
[2021-07-11 02:13] LABS: Anion Gap 9 mmol/L (2-11); Blood Urea Nitrogen 76 mg/dL (6-24); CO2 Carbon Dioxide 28 mmol/L (22-32); Calcium 7.7 mg/dL (8.6-10.3); Chloride 100 mmol/L (101-111); Glucose 98 mg/dL (70-100); Magnesium 2.6 mg/dL (1.9-2.7); Potassium 3.9 mmol/L (3.5-5.0); Sodium 137 mmol/L (135-145); eGFR CKD-EPI 14.5 (>60)
[2021-07-11 02:30] LABS: Troponin I 0.03 ng/mL (<0.03)
[2021-07-11 06:58] LABS: Hematocrit 29 % (35-47); Hemoglobin 9.6 g/dL (12.0-16.0); Mean Corpuscular HGB Conc 34 g/dL (31-36); Mean Corpuscular Hemoglobin 28 pg (27-31); Mean Corpuscular Volume 82 fL (80-97); Mean Platelet Volume 6.5 fL (7.4-10.4); Platelet Count 194 10^3/uL (150-450); Red Blood Count 3.49 10^6 /uL (3.70-4.87); Red Cell Distribution Width 20 % (10-15)
[2021-07-11 07:14] LABS: Calcium 8.9 mg/dL (8.6-10.3); Potassium 4.4 mmol/L (3.5-5.0); eGFR CKD-EPI 13.5 (>60)
[2021-07-11 07:18] LABS: INR 6.22 (0.86-1.15)
[2021-07-11] MEDS: SPIRIVA Respimat (tiotropium) 2.5 mcg/inh Inhaler INH SCH (07:51)
[2021-07-11 07:53] LABS: C Reactive Protein 15.95 mg/L (<8.01)
[2021-07-11 08:09] LABS: PCO2 Arterial 40 mmHg (35-45); PO2 Arterial 68 mmHg (80-100)
[2021-07-11] MEDS: cefTRIAXone 1 gm/50 mL NS BAG 1 GM/50 ML BAG IVPB SCH (09:34)
[2021-07-11] MEDS: Aspirin EC 81 mg TAB.EC (enteric coated) PO SCH (10:03)
[2021-07-11] MEDS ORDERED: NS 0.9% 1000 ml BAG 1,000 ML IV SCH (11:15)
[2021-07-11] MEDS: NS 0.9% 1000 ml BAG 1,000 ML IV SCH (19:38)
[2021-07-12] MEDS: NS 0.9% 1000 ml BAG 1,000 ML IV SCH (02:23)
[2021-07-12 06:25] LABS: ABS Eosinophils 0.1 10^3/ul (0-0.6); ABS Lymphocytes 0.7 10^3/ul (1.0-4.8); ABS Monocytes 0.4 10^3/ul (0-0.8); ABS Neutrophils 3.3 10^3/ul (1.5-7.7); Eosinophil % 2.8 %; Hematocrit 28 % (35-47); Hemoglobin 9.3 g/dL (12.0-16.0); Lymphocyte % 14.6 %; Mean Corpuscular HGB Conc 33 g/dL (31-36); Mean Corpuscular Hemoglobin 27 pg (27-31); Mean Corpuscular Volume 82 fL (80-97); Mean Platelet Volume 6.9 fL (7.4-10.4); Nucleated Red Blood Cells % 0.1; Platelet Count 163 10^3/uL (150-450); Red Blood Count 3.42 10^6 /uL (3.70-4.87); Red Cell Distribution Width 20 % (10-15); White Blood Count 4.5 10^3/uL (3.5-10.8)
[2021-07-12 06:48] LABS: Calcium 8.7 mg/dL (8.6-10.3); Magnesium 2.7 mg/dL (1.9-2.7); eGFR CKD-EPI 21.3 (>60)
[2021-07-12] MEDS: SPIRIVA Respimat (tiotropium) 2.5 mcg/inh Inhaler INH SCH (07:12)
[2021-07-12] MEDS: cefTRIAXone 1 gm/50 mL NS BAG 1 GM/50 ML BAG IVPB SCH (08:12)
[2021-07-12] MEDS: Amiodarone 400 mg TAB PO SCH (08:17)
[2021-07-12] MEDS: Aspirin EC 81 mg TAB.EC (enteric coated) PO SCH (08:17)
[2021-07-12] MEDS ORDERED: NS 0.9% 1000 ml BAG 1,000 ML IV SCH (09:28)
[2021-07-13 05:50] LABS: INR 2.57 (0.86-1.15)
[2021-07-13 05:58] LABS: Calcium 8.6 mg/dL (8.6-10.3); eGFR CKD-EPI 36.1 (>60)
[2021-07-13] MEDS: Aspirin EC 81 mg TAB.EC (enteric coated) PO SCH (09:37)
[2021-07-13] MEDS: Amiodarone 400 mg TAB PO SCH (09:37)
[2021-07-13] MEDS: cefTRIAXone 1 gm/50 mL NS BAG 1 GM/50 ML BAG IVPB SCH (09:39)
[2021-07-13] MEDS: SPIRIVA Respimat (tiotropium) 2.5 mcg/inh Inhaler INH SCH (09:41)
[2021-07-13] MEDS: OXYMORPHONE 5 MG PO PRN (10:27)
[2021-07-14 05:35] LABS: ABS Eosinophils 0.1 10^3/ul (0-0.6); ABS Lymphocytes 0.8 10^3/ul (1.0-4.8); ABS Monocytes 0.4 10^3/ul (0-0.8); ABS Neutrophils 3.7 10^3/ul (1.5-7.7); Hematocrit 26 % (35-47); Hemoglobin 8.8 g/dL (12.0-16.0); Lymphocyte % 15.8 %; Mean Corpuscular HGB Conc 33 g/dL (31-36); Mean Corpuscular Hemoglobin 27 pg (27-31); Mean Corpuscular Volume 81 fL (80-97); Mean Platelet Volume 6.8 fL (7.4-10.4); Platelet Count 151 10^3/uL (150-450); Red Blood Count 3.25 10^6 /uL (3.70-4.87); Red Cell Distribution Width 20 % (10-15)
[2021-07-14 05:44] LABS: INR 2.38 (0.86-1.15)
[2021-07-14 05:57] LABS: Magnesium 2.2 mg/dL (1.9-2.7); Potassium 3.8 mmol/L (3.5-5.0); eGFR CKD-EPI 46.9 (>60)
[2021-07-14] MEDS: OXYMORPHONE 5 MG PO PRN (07:19)
[2021-07-14] MEDS: Amiodarone 400 mg TAB PO SCH (07:21)
[2021-07-14] MEDS: cefTRIAXone 1 gm/50 mL NS BAG 1 GM/50 ML BAG IVPB SCH (08:40)
[2021-07-14] MEDS: SPIRIVA Respimat (tiotropium) 2.5 mcg/inh Inhaler INH SCH (08:45)
[2021-07-14] MEDS: Aspirin EC 81 mg TAB.EC (enteric coated) PO SCH (11:28)
[2021-07-14] MEDS ORDERED: Warfarin per PHARMACY **NOTE FOLLOW UP SCH (12:00)
[2021-07-14] MEDS ORDERED: Warfarin DAILY REMINDER **NOTE FOLLOW UP SCH (17:00)
[2021-07-15 05:53] LABS: ABS Basophils 0.1 10^3/ul (0-0.2); ABS Eosinophils 0.2 10^3/ul (0-0.6); ABS Lymphocytes 0.7 10^3/ul (1.0-4.8); ABS Monocytes 0.4 10^3/ul (0-0.8); ABS Neutrophils 3.6 10^3/ul (1.5-7.7); Hematocrit 28 % (35-47); Hemoglobin 9.1 g/dL (12.0-16.0); Lymphocyte % 14.9 %; Mean Corpuscular HGB Conc 33 g/dL (31-36); Mean Corpuscular Hemoglobin 27 pg (27-31); Mean Corpuscular Volume 81 fL (80-97); Mean Platelet Volume 6.9 fL (7.4-10.4); Platelet Count 153 10^3/uL (150-450); Red Blood Count 3.41 10^6 /uL (3.70-4.87); Red Cell Distribution Width 19 % (10-15)
[2021-07-15 05:59] LABS: INR 1.94 (0.86-1.15)
[2021-07-15 06:12] LABS: Calcium 9.3 mg/dL (8.6-10.3); Magnesium 1.6 mg/dL (1.9-2.7); Potassium 3.4 mmol/L (3.5-5.0); eGFR CKD-EPI 46.5 (>60)
[2021-07-15 06:26] LABS: TSH Ultra Thyroid Stim Horm 6.8 mcIU/mL (0.34-5.60)
[2021-07-15 06:28] LABS: Free T4 1.18 ng/dL (0.61-1.12)
[2021-07-15] MEDS ORDERED: Magnesium Sulf 4 GM/100 ML IV 4,000 MG/100 ML BAG IVPB ONE (07:26)
[2021-07-15] MEDS ORDERED: Potassium Chlor 20 meq TAB.ER PO ONE (07:27)
[2021-07-15] MEDS: SPIRIVA Respimat (tiotropium) 2.5 mcg/inh Inhaler INH SCH (08:57)
[2021-07-15 10:19] VITALS: BP 108/48
[2021-07-15] MEDS: Aspirin EC 81 mg TAB.EC (enteric coated) PO SCH (11:08)
[2021-07-15] MEDS: cefTRIAXone 1 gm/50 mL NS BAG 1 GM/50 ML BAG IVPB SCH ×2 (13:50→13:56)
== END 2021-07-15 15:03 | disposition home or self-care (01) | DRG 683 ==
LOC: ED 20:13 → SUATTDRO 07-11 00:20 → EDHOLD 07-11 00:20 → MEDTELE 07-11 04:23
PROVIDERS: ADMIT Hospitalist; ATTEND Internal Medicine